=== PATIENT | female | born 1960 | race Caucasian/White ===

== ENCOUNTER 2017-02-05 17:23 | Emergency (ER) | payer MEDICARE, OTHER ==
[2017-02-05 17:43] VITALS: RESP 18
[2017-02-05] MEDS ORDERED: RX INFO: IV CONTRAST WAS GIVEN 1 EACH MISC MISCELLANE PRN (17:49)
[2017-02-05] MEDS ORDERED: ONDANSETRON 4 MG/2 ML VIAL IVP STA (17:49)
[2017-02-05] MEDS ORDERED: SODIUM CHLORIDE 0.9% 1,000 ML IV STA (17:49)
[2017-02-05] MEDS ORDERED: HYDROmorphone 1 MG/ML 1 ML SYRINGE IVP STA (17:49)
--- NOTE | 2017-02-05 18:06 | ED ---
General Adult HPI - General Chief complaint: Back Pain/Injury Stated complaint: Back Pain-no injury Time Seen by Provider: 02/05/17 17:26 Source: patient, EMS, RN notes reviewed Mode of arrival: EMS Limitations: no limitations - History of Present Illness Initial comments: 56-year-old female presents emergency room chief complaint of right-sided kidney pain. Patient states it started about 4 days ago and it just keeps getting worse. Patient states in the right side of his kidney. Patient states that he has no nausea vomiting. Patient states he started his [place] and Xanax at home. She states it better. She denies any changes in urination. She denies any trauma or injury. Patient states pain is constant and moderate just continues.Patient denies any recent fever, chills, shortness of breath, chest pain, nausea vomiting, numbness or tingling, dysuria or hematuria, constipation or diarrhea, headaches or visual changes, or any other current symptoms. - Related Data Home Medications Medication Instructions Recorded Confirmed Hydrocodone/Acetaminophen [[place] 1 tab PO 5XD PRN 01/13/14 02/05/17 10-325] ALPRAZolam [Xanax] 2 mg PO QID 02/05/17 02/05/17 Allergies Allergy/AdvReac Type Severity Reaction Status Date / Time morphine AdvReac Hallucinati Verified 02/05/17 18:23 ons Review of Systems ROS Statement: Those systems with pertinent positive or pertinent negative responses have been documented in the HPI. ROS Other: All systems not noted in ROS Statement are negative. Past Medical History Past Medical History: CVA/TIA Additional Past Medical History / Comment(s): blind left eye History of Any Multi-Drug Resistant Organisms: MRSA Date of last positivie culture/infection: 2017 MDRO Source:: skin Additional Past Surgical History / Comment(s): facial reconstructive, Past Psychological History: Anxiety, Depression Smoking Status: Current every day smoker Past Alcohol Use History: Occasional Past Drug Use History: Marijuana General Exam - General Exam Comments Initial Comments: General: The patient is awake and alert, in no distress, and does not appear acutely ill. Eye: Pupils are equal, round and reactive to light, extra-ocular movements are intact; there is normal conjunctiva bilaterally. No signs of icterus. Ears, nose, mouth and throat: There are moist mucous membranes and no oral lesions. Neck: The neck is supple, there is no tenderness. Cardiovascular: There is a regular rate and rhythm. No murmur, rub or gallop is appreciated. Respiratory: Lungs are clear to auscultation, respirations are non-labored, breath sounds are equal. No wheezes, stridor, rales, or rhonchi. Gastrointestinal: Soft, non-distended, non-tender abdomen without masses or organomegaly noted. There is no rebound or guarding present. Right sided CVA tenderness. Bowel sounds are unremarkable. Back: There is no tenderness to palpation in the midline. There is no obvious deformity. No rashes noted. Musculoskeletal: Normal ROM, no tenderness, There is no pedal edema. There is no calf tenderness or swelling. Sensation intact. Pulses equal bilaterally 2+. Neurological: CN II-XII intact, There are no obvious motor or sensory deficits. Coordination appears grossly intact. Speech is normal. Skin: Skin is warm and dry and no rashes or lesions are noted. Psychiatric: Cooperative, appropriate mood & affect, normal judgment. Limitations: no limitations Course Vital Signs 02/05/17 17:29 Temperature 98.8 F Pulse Rate 78 Respiratory 18 Rate Blood Pressure 135/80 O2 Sat by Pulse 97 Oximetry Medical Decision Making - Medical Decision Making 56-year-old female presents for right-sided flank pain. At this time patient's CAT scan and laboratory is been reviewed. She'll have elevated liver enzymes that we did discuss as well as some simple cyst on which we did discuss follow- up with GI and she is given their information. Discussed return parameters all the questions. She stated that she understood. She is resting completely room. At this time she'll be discharged home. - Lab Data Result diagrams: 02/05/17 18:05 02/05/17 18:05 Lab Results 02/05/17 02/05/17 02/05/17 Range/Units 18:05 18:05 18:05 WBC 9.8 (3.8-10.6) k/uL RBC 4.86 (3.80-5.40) m/uL Hgb 14.4 (11.4-16.0) gm/dL Hct 43.4 (34.0-46.0) % MCV 89.4 (80.0-100.0) fL MCH 29.6 (25.0-35.0) pg MCHC 33.1 (31.0-37.0) g/dL RDW 14.4 (11.5-15.5) % Plt Count 285 (150-450) k/uL Neutrophils % 65 % Lymphocytes % 29 % Monocytes % 4 % Eosinophils % 1 % Basophils % 1 % Neutrophils # 6.3 (1.3-7.7) k/uL Lymphocytes # 2.8 (1.0-4.8) k/uL Monocytes # 0.3 (0-1.0) k/uL Eosinophils # 0.1 (0-0.7) k/uL Basophils # 0.1 (0-0.2) k/uL Sodium 139 (137-145) mmol/L Potassium 3.8 (3.5-5.1) mmol/L Chloride 103 (98-107) mmol/L Carbon Dioxide 26 (22-30) mmol/L Anion Gap 10 mmol/L BUN 9 (7-17) mg/dL Creatinine 0.61 (0.52-1.04) mg/dL Est GFR (MDRD) Af Amer >60 (>60 ml/min/1.73 sqM) Est GFR (MDRD) Non-Af >60 (>60 ml/min/1.73 sqM) Glucose 103 H (74-99) mg/dL Calcium 9.6 (8.4-10.2) mg/dL Total Bilirubin 0.4 (0.2-1.3) mg/dL AST 278 H (14-36) U/L ALT 221 H (9-52) U/L Alkaline Phosphatase 53 (38-126) U/L Total Protein 7.8 (6.3-8.2) g/dL Albumin 4.2 (3.5-5.0) g/dL Amylase 45 (30-110) U/L Lipase 42 (23-300) U/L Urine Color Colorless Urine Appearance Clear (Clear) Urine pH 6.0 (5.0-8.0) Ur Specific [place] 1.001 (1.001-1.035) Urine Protein Negative (Negative) Urine Glucose (UA) Negative (Negative) Urine Ketones Negative (Negative) Urine Blood Negative (Negative) Urine Nitrite Negative (Negative) Urine Bilirubin Negative (Negative) Urine Urobilinogen <2.0 (<2.0) mg/dL Ur Leukocyte Esterase Negative (Negative) - Radiology Data Radiology results: report reviewed, image reviewed Disposition Clinical Impression: Right flank pain Disposition: HOME SELF-CARE Condition: Serious Instructions: Acute Low Back Pain (ED) Additional Instructions: Please use medication as discussed. Please follow up with family doctor if symptoms have not improved over the next two days. Please return to the emergency room if your symptoms increase or worsen or for any other concerns. Referrals: Dedrick Fernández MD [Primary Care Provider] - 1-2 days Time of Disposition: 19:33
[2017-02-05 18:25] LABS: Appearance,Urine Clear (Clear); Bilirubin,Urine Negative (Negative); Glucose,Urine (UA) Negative (Negative); Ketones,Urine Negative (Negative); Leukocyte Esterase,Urine Negative (Negative); Nitrite,Urine Negative (Negative); Protein,Urine Negative (Negative); Specific Gravity,Urine 1.001 (1.001-1.035); UA Billing (MACRO vs. MICRO) CHEM; Urobilinogen,Urine <2.0 mg/dL (<2.0)
[2017-02-05 18:35] LABS: Basophils # (A) 0.1 k/uL (0-0.2); Basophils % (A) 1 %; CH 30.2; Eosinophils # (A) 0.1 k/uL (0-0.7); Eosinophils % (A) 1 %; HCT 43.4 % (34.0-46.0); HDW 2.72; HGB 14.4 gm/dL (11.4-16.0); Luc # (Auto) 0.14; Luc % (Auto) 1; Lymphocytes # (A) 2.8 k/uL (1.0-4.8); Lymphocytes % (A) 29 %; MCH 29.6 pg (25.0-35.0); MCHC 33.1 g/dL (31.0-37.0); MCV 89.4 fL (80.0-100.0); Mean Platelet Volume 7.4; Monocytes # (A) 0.3 k/uL (0-1.0); Monocytes % (A) 4 %; Neutrophils # (A) 6.3 k/uL (1.3-7.7); Neutrophils % (A) 65 %; RBC 4.86 m/uL (3.80-5.40); RDW 14.4 % (11.5-15.5); WBC 9.8 k/uL (3.8-10.6); WBC (Perox) 9.65
[2017-02-05 18:36] LABS: ALT 221 U/L (9-52); AST 278 U/L (14-36); Alkaline Phosphatase 53 U/L (38-126); Amylase 45 U/L (30-110); Anion Gap 10 mmol/L; Blood Urea Nitrogen 9 mg/dL (7-17); Calcium 9.6 mg/dL (8.4-10.2); Carbon Dioxide 26 mmol/L (22-30); Chloride 103 mmol/L (98-107); Glucose 103 mg/dL (74-99); Non-African American GFR(MDRD) >60 (>60 ml/min/1.73 sqM); Potassium 3.8 mmol/L (3.5-5.1); Sodium 139 mmol/L (137-145); Total Bilirubin 0.4 mg/dL (0.2-1.3); Total Protein 7.8 g/dL (6.3-8.2)
--- NOTE | 2017-02-05 19:24 | CT ---
EXAMINATION TYPE: CT abdomen pelvis w con DATE OF EXAM: 02/05/2017 COMPARISON: NONE HISTORY: Right flank pain, no known injury. CT DLP: 1674.30 mGycm Automated exposure control for dose reduction was used. TECHNIQUE: Helical acquisition of images was performed from the lung bases through the pelvis. CONTRAST: Performed without Oral Contrast and with IV Contrast, patient injected with 100 mL of Omnipaque 300. FINDINGS: Lung bases are clear of consolidation. There is no pleural effusion. There are multiple rounded fluid densities in the liver that measure up to 1.5 cm consistent with simple cysts. Bile ducts are not di lated. Spleen and pancreas appear normal. Gallbladder appears normal. There is no adrenal mass. Kidneys show satisfactory contrast opacification. There is no hydronephrosi s. Ureters are not dilated. There is no retroperitoneal adenopathy. There is no ascites. Bladder distends smoothly. There is no sign of a pelvic mass. I see no intestina l wall thickening. There are no dilated loops. Appendix appears normal. I see no bony destructive pro cess. There is mild spurring in the lumbar spine. IMPRESSION: MULTIPLE SMALL HEPATIC CYSTS. NO DILATED DUCTS. NO SIGN OF ACUTE ABDOMEN AND PELVIS. NO EVIDENCE OF R ENAL STONE OR OBSTRUCTION.
[2017-02-05] MEDS ORDERED: KETOROLAC 30 MG/ML 1 ML VIAL IVP STA (19:33)
[2017-02-05 19:39] VITALS: BP 139/70; PULSE 61; TEMP 97.9
== END 2017-02-05 19:46 | disposition home or self-care (01) ==
LOC: EC 17:23
DX: R10.9 Unspecified abdominal pain (principal); R79.89 Other specified abnormal findings of blood chemistry; F32.9 Major depressive disorder, single episode, unspecified; F41.9 Anxiety disorder, unspecified; Z86.14 Personal history of Methicillin resistant Staphylococcus aureus infection; F17.200 Nicotine dependence, unspecified, uncomplicated; Z79.899 Other long term (current) drug therapy; Z88.5 Allergy status to narcotic agent
CPT/HCPCS: 99284 ×2; 96374 ×2; 96375 ×3; 96361 ×3; 36415; 80053; 82150; 83690; 85025; 81003; 87040; 87086; 74177; J2405; J1885; J1170; Q9967

== ENCOUNTER → 2017-03-31 | Outpatient (CLI) | payer OTHER ==
[2017-03-31 15:06] LABS: CH 28.8; CHCM 31.5; HCT 44.3 % (34.0-46.0); HDW 2.52; HGB 13.9 gm/dL (11.4-16.0); MCH 28.8 pg (25.0-35.0); MCHC 31.4 g/dL (31.0-37.0); MCV 91.7 fL (80.0-100.0); Mean Platelet Volume 7.3; RBC 4.83 m/uL (3.80-5.40); RDW 14.5 % (11.5-15.5); WBC 9.5 k/uL (3.8-10.6)
[2017-03-31 15:55] LABS: Bilirubin, Delta 0.4 mg/dL (0.0-0.2); Total Bilirubin 0.5 mg/dL (0.2-1.3); Total Protein 7.7 g/dL (6.3-8.2)
[2017-04-05 15:40] LABS: HCV Qualitative Result DETECTED (Not detected)
== END | disposition home or self-care (01) ==
LOC: LABWHC1 14:02
PROVIDERS: ATTEND Physician Assistant
DX: B18.2 Chronic viral hepatitis C (principal)
CPT/HCPCS: 36415; 80076; 82105; 85027; 87522; 87902

== ENCOUNTER → 2017-04-08 | Outpatient (CLI) | payer OTHER ==
--- NOTE | 2017-04-08 14:22 | CT ---
EXAMINATION TYPE: CT cervical spine wo con DATE OF EXAM: 04/08/2017 COMPARISON: CT cervical spine March 01, 2014 HISTORY: Neck pain CT DLP: 572.8 mGycm. Automated Exposure Control for Dose Reduction was Utilized. TECHNIQUE: CT scan of the cervical spine is obtained without contrast, axial images are obtained, sa gittal and coronal reformatted images are also reviewed. FINDINGS: Cervical spine is visualized in its entirety from C1 through upper thoracic levels, demonst rates straightened alignment without evidence of acute fracture or dislocation. Prevertebral soft ti ssue appears within normal limits. The C1-C2 articulation is within normal limits on the coronal jann ges. Vertebral body heights and disc space heights are maintained. Spinal canal is grossly preserved. Ther e are some uncovertebral facet degenerative changes mid cervical spine seen best axial images. Lung a pices are clear. Thyroid gland is felt within normal limits. Similar prior study there is degradation related to patient's large body habitus. IMPRESSION: Straightening of cervical spine with multilevel degenerative change not significantly gianna nged from prior study.
--- NOTE | 2017-04-08 15:18 | CT ---
EXAMINATION TYPE: CT lumbar spine wo con DATE OF EXAM: 04/08/2017 COMPARISON: CT abdomen and pelvis February 05, 2017 HISTORY: Low back pain CT DLP: 1843.7 mGycm Automated exposure control for dose reduction was used. FINDINGS: There are 5 lumbar-type vertebra identified. Lumbar spine show straightening alignment without eviden ce of acute fracture or dislocation. Vertebral body heights and disc space heights are fairly well-ma intained. No large posterior disc herniations are seen on sagittal images. There is mild multilevel a nterior and lateral spurring. Review of axial images at T11-T12 level shows calcified ligamentum flav um hypertrophy effacing posterior lateral thecal sac and axial image 6. Axial images at T12-L1 and L1-L2 are felt within normal limits. Axial images at L2-L3 level show mild broad disc bulge and mild facet degenerative changes bilaterall y. There is some effacement of the the anterior and posterior lateral thecal sac. Bilateral neural fo ramina are patent. Axial images at L3-L4 level show moderate facet degenerative changes bilaterally. There is mild broad disc bulge mildly effacing anterior thecal sac. Bilateral neural foramina remain patent. Axial images at L4-L5 level show broad-based posterior disc protrusion and mild/moderate facet degene rative changes bilaterally. Spinal canal is grossly preserved. Bilateral neural foramina are patent. Axial images at L5-S1 level show moderate to severe right and mild to moderate left-sided facet degen erative change. Spinal canal is preserved. Bilateral neural foramina are patent. Subcentimeter low dense lesion left hepatic lobe is stable from prior, too small to further character ize but most likely benign. Cannot entirely exclude small pancreatic tail 1.4 cm mass versus prominen t tissue axial image 26, advise pancreatic protocol multi phase CT or MRI follow-up in 3 months time to further assess. IMPRESSION: MULTILEVEL DEGENERATIVE CHANGES IN LUMBAR SPINE DETAILED ABOVE, ATTENTION TO DISTAL PANCREATIC HERNANDEZ L NOTED ABOVE.
== END | disposition home or self-care (01) ==
LOC: RADCTMAIN 13:33
PROVIDERS: ATTEND Psychiatry & Neurology Neurology
DX: M47.812 Spondylosis without myelopathy or radiculopathy, cervical region (principal); M47.816 Spondylosis without myelopathy or radiculopathy, lumbar region; Z88.5 Allergy status to narcotic agent
CPT/HCPCS: 72125; 72131

== ENCOUNTER 2017-06-20 11:38 | Emergency (ER) | payer OTHER ==
--- NOTE | 2017-06-20 11:54 | ED ---
General Adult HPI - General Chief complaint: Recheck/Abnormal Lab/Rx Stated complaint: Hypertension Time Seen by Provider: 06/20/17 11:44 Source: patient, RN notes reviewed Mode of arrival: ambulatory Limitations: no limitations - History of Present Illness Initial comments: Patient is a pleasant 57-year-old female presenting to the emergency department because she thinks she may have had a stroke. Patient states she went off her [place] and Xanax one week ago. Patient states she was somewhat delusional for a couple of days. Patient has been symptom-free for the past few days. Patient talked her doctor last night who recommended she come to the emergency department to get checked out. Patient denies any local area of weakness. No confusion. No speech deficits. No chest pain. Patient request [place] and Xanax. - Related Data Home Medications Medication Instructions Recorded Confirmed Hydrocodone/Acetaminophen [[place] 1 tab PO 5XD PRN 01/13/14 02/05/17 10-325] ALPRAZolam [Xanax] 2 mg PO QID 02/05/17 02/05/17 Allergies Allergy/AdvReac Type Severity Reaction Status Date / Time morphine AdvReac Hallucinati Verified 06/20/17 11:46 ons Review of Systems ROS Statement: Those systems with pertinent positive or pertinent negative responses have been documented in the HPI. ROS Other: All systems not noted in ROS Statement are negative. Constitutional: Denies: fever Eyes: Reports: vision change (Chronic left vision loss). Denies: eye pain ENT: Denies: ear pain Respiratory: Denies: cough Cardiovascular: Denies: chest pain Endocrine: Denies: fatigue Gastrointestinal: Denies: abdominal pain Genitourinary: Denies: dysuria Musculoskeletal: Denies: back pain Skin: Denies: rash Neurological: Denies: weakness 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 Date of last positivie culture/infection: 2016 MDRO Source:: skin Additional Past Surgical History / Comment(s): facial reconstructive, Past Psychological History: Anxiety, Depression Smoking Status: Former smoker Past Alcohol Use History: Occasional Past Drug Use History: Marijuana General Exam Limitations: no limitations General appearance: alert, in no apparent distress Head exam: Present: atraumatic Eye exam: Present: other (Left eye opacification) ENT exam: Present: normal oropharynx Neck exam: Present: normal inspection Respiratory exam: Present: normal lung sounds bilaterally Cardiovascular Exam: Present: regular rate, normal rhythm GI/Abdominal exam: Present: soft. Absent: tenderness Extremities exam: Present: normal inspection Neurological exam: Present: alert, oriented X3, CN II-XII intact. Absent: motor sensory deficit Expanded Patient oriented to: Present: person, place, time Speech: Present: fluid speech Cranial nerves: Facial Sensation: Normal Sensory exam: Upper Extremity Light Touch: Normal, Lower Extremity Light Touch: Normal Motor strength exam: RUE: 5, LUE: 5, RLE: 5, LLE: 5 Eye Response: (4) open spontaneously Motor Response: (6) obeys commands Verbal Response: (5) oriented Psychiatric exam: Present: normal affect, normal mood Skin exam: Present: other (Healed facial scars) Course Vital Signs 06/20/17 11:41 Temperature 97.8 F Pulse Rate 82 Respiratory 20 Rate Blood Pressure 162/99 O2 Sat by Pulse 99 Oximetry Medical Decision Making - Medical Decision Making report reviewed. Long discussion had with patient regarding her medication use. Patient is receptive to a single dose of Xanax at this time and will follow-up with her doctor Wednesday as scheduled. - Lab Data Result diagrams: 06/20/17 12:15 06/20/17 12:15 Lab Results 06/20/17 06/20/17 06/20/17 Range/Units 12:15 12:15 12:15 WBC 10.5 (3.8-10.6) k/uL RBC 5.08 (3.80-5.40) m/uL Hgb 14.6 (11.4-16.0) gm/dL Hct 45.6 (34.0-46.0) % MCV 89.6 (80.0-100.0) fL MCH 28.7 (25.0-35.0) pg MCHC 32.0 (31.0-37.0) g/dL RDW 13.0 (11.5-15.5) % Plt Count 312 (150-450) k/uL Neutrophils % 72 % Lymphocytes % 22 % Monocytes % 4 % Eosinophils % 1 % Basophils % 0 % Neutrophils # 7.6 (1.3-7.7) k/uL Lymphocytes # 2.3 (1.0-4.8) k/uL Monocytes # 0.4 (0-1.0) k/uL Eosinophils # 0.1 (0-0.7) k/uL Basophils # 0.0 (0-0.2) k/uL PT 9.6 (9.0-12.0) sec INR 1.0 (<1.2) APTT 21.4 L (22.0-30.0) sec Sodium 145 (137-145) mmol/L Potassium 3.6 (3.5-5.1) mmol/L Chloride 105 (98-107) mmol/L Carbon Dioxide 29 (22-30) mmol/L Anion Gap 11 mmol/L BUN 9 (7-17) mg/dL Creatinine 0.70 (0.52-1.04) mg/dL Est GFR (MDRD) Af Amer >60 (>60 ml/min/1.73 sqM) Est GFR (MDRD) Non-Af >60 (>60 ml/min/1.73 sqM) Glucose 111 H (74-99) mg/dL Calcium 9.9 (8.4-10.2) mg/dL Total Bilirubin 0.3 (0.2-1.3) mg/dL AST 30 (14-36) U/L ALT 37 (9-52) U/L Alkaline Phosphatase 68 (38-126) U/L Total Protein 8.4 H (6.3-8.2) g/dL Albumin 4.7 (3.5-5.0) g/dL Disposition Clinical Impression: Withdrawal complaint Disposition: HOME SELF-CARE Condition: Stable Instructions: Opioid Withdrawal (ED) Additional Instructions: Please follow-up with your doctor Wednesday as scheduled. If any problems call your doctor tomorrow. Return for change in mental status, weakness, fevers, seizures, worsening symptoms or other concerns. Referrals: Dedrick Fernández MD [Primary Care Provider] - 1-2 days Time of Disposition: 13:10
[2017-06-20 12:35] LABS: Basophils % (A) 0 %; Eosinophils # (A) 0.1 k/uL (0-0.7); Eosinophils % (A) 1 %; HCT 45.6 % (34.0-46.0); HGB 14.6 gm/dL (11.4-16.0); Lymphocytes # (A) 2.3 k/uL (1.0-4.8); Lymphocytes % (A) 22 %; MCH 28.7 pg (25.0-35.0); MCV 89.6 fL (80.0-100.0); Mean Platelet Volume 7.1; Monocytes # (A) 0.4 k/uL (0-1.0); Monocytes % (A) 4 %; Neutrophils # (A) 7.6 k/uL (1.3-7.7); Neutrophils % (A) 72 %; Platelet Count 312 k/uL (150-450); RBC 5.08 m/uL (3.80-5.40); WBC 10.5 k/uL (3.8-10.6)
[2017-06-20 12:44] LABS: Prothrombin Time 9.6 sec (9.0-12.0)
[2017-06-20 12:50] LABS: ALT 37 U/L (9-52); AST 30 U/L (14-36); Albumin 4.7 g/dL (3.5-5.0); Alkaline Phosphatase 68 U/L (38-126); Anion Gap 11 mmol/L; Blood Urea Nitrogen 9 mg/dL (7-17); Calcium 9.9 mg/dL (8.4-10.2); Carbon Dioxide 29 mmol/L (22-30); Chloride 105 mmol/L (98-107); Glucose 111 mg/dL (74-99); Partial Thromboplastin Time 21.4 sec (22.0-30.0); Potassium 3.6 mmol/L (3.5-5.1); Sodium 145 mmol/L (137-145); Total Bilirubin 0.3 mg/dL (0.2-1.3); Total Protein 8.4 g/dL (6.3-8.2)
--- NOTE | 2017-06-20 12:56 | CT ---
EXAMINATION TYPE: CT brain wo con DATE OF EXAM: 06/20/2017 COMPARISON: Previous study dated 03/01/2014. HISTORY: Patient complains of episodes of hallucinations. CT DLP: 1079 mGycm Automated exposure control for dose reduction was used. FINDINGS: Central structures are midline. There is no evidence of hydrocephalus. No acute focal lesion, mass ef fect or midline shift is seen. I do not see evidence of intracranial blood. Visualized portions of the paranasal sinuses and mastoids are clear. There is a stable, 6.4 mm exosto sis seen arising from the left frontal region. IMPRESSION: NO ACUTE INTRACRANIAL ABNORMALITY.
[2017-06-20] MEDS ORDERED: ALPRAZolam 0.5 MG TAB PO STA (13:09)
[2017-06-20 13:28] VITALS: BP 142/81; PULSE 66; RESP 16; TEMP 98.5
== END 2017-06-20 13:35 | disposition home or self-care (01) ==
LOC: EC 11:38
DX: F19.939 Other psychoactive substance use, unspecified with withdrawal, unspecified (principal); H54.62 Unqualified visual loss, left eye, normal vision right eye; F32.9 Major depressive disorder, single episode, unspecified; F41.9 Anxiety disorder, unspecified; Z87.891 Personal history of nicotine dependence; Z79.899 Other long term (current) drug therapy; Z88.5 Allergy status to narcotic agent; Z86.14 Personal history of Methicillin resistant Staphylococcus aureus infection; Z98.890 Other specified postprocedural states
CPT/HCPCS: 36415; 70450; 80053; 85025; 85610; 85730; 99284

== ENCOUNTER → 2017-08-17 | Outpatient (CLI) | payer OTHER ==
--- NOTE | 2017-08-17 08:33 | US ---
EXAMINATION TYPE: US liver DATE OF EXAM: 08/17/2017 COMPARISON: NONE CLINICAL HISTORY: 57-year-old female B18.2 chronic viral hep c. Technique: Multiple sonographic images of the right upper quadrant are obtained. FINDINGS: Liver Length: 16.0cm Gallbladder Wall: 0.3m CBD: 0.3cm Right Kidney: 11.5 x 4.3 x 3.7cm Pancreas: Tail obscured by overlying bowel gas Liver: multiple cysts noted measuring up to 1 cm on the left and 1.3 cm on the right. Gallbladder: Some comet tail artifacts along the anterior gallbladder wall compatible with adenomyoma tosis. No abnormal gallbladder distention, wall thickening, pericholecystic fluid, or shadowing calcu li. Evidence for sonographic Laboy's sign: no CBD: wnl Right Kidney: No hydronephrosis. IMPRESSION: Hepatic cysts measuring up to 1.3 cm. No suspicious liver lesion by ultrasound.
== END | disposition home or self-care (01) ==
LOC: RADUSWWP 06:56
PROVIDERS: ATTEND Family Medicine
DX: K76.89 Other specified diseases of liver (principal)
CPT/HCPCS: 76705

== ENCOUNTER → 2017-12-14 | Outpatient (CLI) | payer OTHER, MEDICARE ==
[2017-12-14 08:30] LABS: HCT 44.2 % (34.0-46.0); HGB 14.4 gm/dL (11.4-16.0); MCH 28.4 pg (25.0-35.0); MCHC 32.7 g/dL (31.0-37.0); MCV 86.9 fL (80.0-100.0); Mean Platelet Volume 6.9; Platelet Count 280 k/uL (150-450); RBC 5.09 m/uL (3.80-5.40); RDW 13.6 % (11.5-15.5); WBC 9.7 k/uL (3.8-10.6)
[2017-12-14 08:33] LABS: Albumin 4.1 g/dL (3.5-5.0); Bilirubin, Delta 0.3 mg/dL (0.0-0.2); Total Bilirubin 0.3 mg/dL (0.2-1.3); Total Protein 7.1 g/dL (6.3-8.2)
[2017-12-15 14:42] LABS: Hepatits C Virus RNA DETECTED (Not detected); Hepatits C Virus RNA, Quant 12 IU/mL (<12); LOG HCV IU/mL 1.08 (<1.08)
== END | disposition home or self-care (01) ==
LOC: LABWHC1 07:49
PROVIDERS: ATTEND Physician Assistant
DX: B18.2 Chronic viral hepatitis C (principal)
CPT/HCPCS: 36415; 80076; 85027; 87522

== ENCOUNTER → 2018-02-02 | Outpatient (CLI) | payer MEDICARE, OTHER ==
[2018-02-02 14:25] LABS: HGB 14.8 gm/dL (11.4-16.0); MCH 28.6 pg (25.0-35.0); MCHC 32.3 g/dL (31.0-37.0); MCV 88.6 fL (80.0-100.0); Platelet Count 316 k/uL (150-450); RBC 5.19 m/uL (3.80-5.40); RDW 13.3 % (11.5-15.5); WBC 13.2 k/uL (3.8-10.6)
[2018-02-02 14:28] LABS: Albumin 4.6 g/dL (3.5-5.0); Bilirubin, Delta 0.3 mg/dL (0.0-0.2); Bilirubin,Unconjugated 0.1 mg/dL (0.0-1.1); Total Bilirubin 0.4 mg/dL (0.2-1.3); Total Protein 8.5 g/dL (6.3-8.2)
[2018-02-03 13:46] LABS: Hepatits C Virus RNA Not detected (Not detected); Hepatits C Virus RNA, Quant <12 IU/mL (<12); LOG HCV IU/mL <1.08 (<1.08)
== END | disposition home or self-care (01) ==
LOC: LABWHC1 12:49
PROVIDERS: ATTEND Physician Assistant
DX: B18.2 Chronic viral hepatitis C (principal)
CPT/HCPCS: 36415; 80076; 85027; 87522

== ENCOUNTER → 2018-10-27 | Outpatient (CLI) | payer MEDICARE, OTHER ==
[2018-10-27 08:15] LABS: Basophils # (A) 0.1 k/uL (0-0.2); Basophils % (A) 1 %; Eosinophils # (A) 0.2 k/uL (0-0.7); Eosinophils % (A) 1 %; HCT 45.8 % (34.0-46.0); Lymphocytes # (A) 3.3 k/uL (1.0-4.8); Lymphocytes % (A) 25 %; MCH 28.2 pg (25.0-35.0); MCHC 32.8 g/dL (31.0-37.0); MCV 86.1 fL (80.0-100.0); Mean Platelet Volume 7.2; Monocytes # (A) 0.4 k/uL (0-1.0); Monocytes % (A) 3 %; Neutrophils % (A) 68 %; Platelet Count 436 k/uL (150-450); RBC 5.32 m/uL (3.80-5.40); RDW 13.3 % (11.5-15.5); WBC 13.2 k/uL (3.8-10.6)
[2018-10-27 11:10] LABS: ALT 14 U/L (8-44); AST 17 U/L (13-35); African American GFR (CKD) 94.2 (60.0-200.0); Albumin/Globulin Ratio 1.36 (1.60-3.17); Alkaline Phosphatase 59 U/L (41-126); BUN/Creat Ratio 21.25 Ratio (12.00-20.00); Bilirubin, Conjugated <0.20 mg/dL (0.20-0.40); Calcium 10.3 mg/dL (8.7-10.3); Carbon Dioxide 30.8 mmol/L (21.6-31.8); Chloride 99 mmol/L (96-109); Cholesterol 194 mg/dL (0-200); Globulin 3.3 g/dL (1.6-3.3); Glucose 142 mg/dL (70-110); Potassium 3.6 mmol/L (3.5-5.5); Sodium 137 mmol/L (135-145); Total Bilirubin 0.2 mg/dL (0.3-1.2); Total Protein 7.8 g/dL (6.2-8.2)
[2018-10-29 13:04] LABS: LOG HCV IU/mL <1.08 (<1.08)
== END | disposition home or self-care (01) ==
LOC: LABWHC1 07:21
PROVIDERS: ATTEND Physician Assistant
DX: E55.9 Vitamin D deficiency, unspecified (principal); E78.5 Hyperlipidemia, unspecified; R53.83 Other fatigue; B18.2 Chronic viral hepatitis C; Z13.220 Encounter for screening for lipoid disorders
CPT/HCPCS: 36415; 80053; 80061; 82248; 82306; 84439; 84443; 85025; 87522

== ENCOUNTER → 2018-11-16 | Outpatient (CLI) | payer MEDICARE, OTHER ==
--- NOTE | 2018-11-16 11:03 | BD ---
EXAMINATION TYPE: Axial Bone Density DATE OF EXAM: 11/16/2018 COMPARISON: 2013 CLINICAL HISTORY: M 81.0 Height: 67 Weight: 222.0 FRAX RISK QUESTIONS: Alcohol (3 or more units per day): no Family History (Parent hip fracture): no Glucocorticoids (More than 3mos): no (Ex: prednisone, prednisolone, methylprednisolone, dexamethasone, and hydrocortisone). History of Fracture in Adulthood: yes Secondary Osteoporosis: 1. Type 1 Diabetes: yes 2. Hyperthyroidism: no 3. Menopause before 45: no 4. Malnutrition: no 5. Chronic liver disease: no Rheumatoid Arthritis: no Current Tobacco Use: yes RISK FACTORS HISTORY OF: Spine Fracture: t-spine, c-spine History of Wrist Fracture: right wrist Family History of Osteoporosis: yes Active: no Diet low in dairy products/other sources of calcium: no Postmenopausal woman: age 48 MEDICATIONS: pain meds Additional History: EXAM MEASUREMENTS: Bone mineral densitometry was performed using the [employer] System. Bone mineral density as measured about the Lumbar spine is: ----- L1-L4(G/cm2): 1.432 T Score Values are as follows: ----- L2: 1.6 ----- L3: 2.8 ----- L4: 2.3 ----- L1-L4: 2.1 Bone mineral density : baseline Bone mineral density about the R hip (g/cm2): 1.053 Bone mineral density about the L hip (g/cm2): 1.053 T Score values are as follows: -----R Neck: 0.1 -----L Neck: 0.1 -----R Total: 0.3 -----L Total: 0.5 Bone mineral density has: increased 3.0 % since study of: 01.30.2014 IMPRESSION: Normal (Values between +1 and -1 indicate normal bone mass). Consider repeating this study in 5 year s or sooner if there is some new clinical indication. NOTE: T-SCORE=SD OF THE YOUNG ADULT MEAN.
== END | disposition home or self-care (01) ==
LOC: RADBDWWP 08:36
PROVIDERS: ATTEND Family Medicine
DX: M81.0 Age-related osteoporosis without current pathological fracture (principal)
CPT/HCPCS: 77080

== ENCOUNTER 2018-12-19 06:56 | Observation (INO) | payer MEDICARE, OTHER ==
[2018-12-19] MEDS ORDERED: ASPIRIN 81 MG PO STA (07:05)
[2018-12-19 07:14] VITALS: RESP 18
--- NOTE | 2018-12-19 07:15 | ED ---
General Adult HPI - General Stated complaint: anxiety Time Seen by Provider: 12/19/18 07:00 Source: RN notes reviewed - History of Present Illness Initial comments: This a 58-year-old female presents emergency department with past medical history significant for anxiety. Patient states she woke up this morning at 3 AM quite anxious and she took Ativan did not help. Patient states she did feel somewhat short of breath and had a little tightness in her chest which she states she's had in the past with her anxiety. Patient denies any chest pain currently patient denies any tightness in her chest currently patient denies any difficulty breathing currently. Patient states she recently was diagnosed with diabetes and took metformin for a couple days but it made her feel sick so she stopped taking it. Patient states she is currently trying to switch physicians. Patient states currently she just feels anxious and has no other symptoms at this time. Patient does mention that she fell on her right hip recently and it continues to hurt and she did have an x-ray in her doctor's office but he never called with results. Patient states she can ambulate but it is painful to walk. Patient also states that she recently quit smoking less than a week ago and that could be contributing to her anxiety - Related Data Home Medications Medication Instructions Recorded Confirmed Chlorthalidone [Hygroton] 25 mg PO DAILY 12/19/18 12/19/18 Ergocalciferol (Vitamin D2) 50,000 unit PO Q7D 12/19/18 12/19/18 [Drisdol] Hydrocodone/Acetaminophen [[place] 1 tab PO TID PRN 12/19/18 12/19/18 7.5-325] LORazepam [Ativan] 2 mg PO TID PRN 12/19/18 12/19/18 cloNIDine HCL 0.3 mg PO DAILY 12/19/18 12/19/18 metFORMIN HCL [Glucophage] 500 mg PO DAILY 12/19/18 12/19/18 Allergies Allergy/AdvReac Type Severity Reaction Status Date / Time morphine AdvReac Hallucinati Verified 12/19/18 09:06 ons Review of Systems ROS Statement: Those systems with pertinent positive or pertinent negative responses have been documented in the HPI. ROS Other: All systems not noted in ROS Statement are negative. 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 Patient is nontoxic and well- hydrated and is in no acute distress. ENT: Neck is soft and supple. No significant lymphadenopathy is noted. Oropharynx is clear. Moist mucous membranes. Neck has full range of motion without eliciting any pain. There is no thyroid enlargement and no masses were felt. EYES: The sclera were anicteric and conjunctiva were pink and moist. Patient is blind in the left eye. Eyelids were unremarkable. PULMONARY: Unlabored respirations. Good breath sounds bilaterally. No audible rales rhonchi or wheezing was noted. CARDIOVASCULAR: There is a regular rate and rhythm without any murmurs gallops or rubs. ABDOMEN: Soft and nontender with normal bowel sounds. SKIN: Skin is clear with no lesions or rashes and otherwise unremarkable. NEUROLOGIC: Patient is alert and oriented x3. Cranial nerves II through XII are grossly intact. Motor and sensory are also intact. Normal speech, volume and content. Symmetrical smile. MUSCULOSKELETAL: Normal extremities with adequate strength and full range of motion. Patient has tenderness on the lateral aspect of the right hip. No lower extremity swelling or edema. No calf tenderness. LYMPHATICS: No significant lymphadenopathy is noted PSYCHIATRIC: Patient is anxious. Course Vital Signs 12/19/18 12/19/18 06:59 10:19 Temperature 97.6 F Pulse Rate 79 Respiratory 18 18 Rate Blood Pressure 139/84 130/86 O2 Sat by Pulse 100 Oximetry Medical Decision Making - Medical Decision Making EKG shows normal sinus rhythm at 64 bpm SD interval is 174 QRS 70 QT interval 396 QTC is 408. Patient's EKG shows no ST segment elevation or depression or T wave abnormalities are noted. Patient stated that her physician was Dr. Hernandez Chest x-ray shows no acute abnormality. Patient still has some chest pains on going to admit the patient at this time - Lab Data Result diagrams: 12/19/18 08:30 12/19/18 08:30 Lab Results 08/04/2712/19/18 12/19/18 Range/Units 08:30 08:30 08:30 WBC 9.9 (3.8-10.6) k/uL RBC 5.24 (3.80-5.40) m/uL Hgb 15.2 (11.4-16.0) gm/dL Hct 45.7 (34.0-46.0) % MCV 87.3 (80.0-100.0) fL MCH 29.0 (25.0-35.0) pg MCHC 33.2 (31.0-37.0) g/dL RDW 14.7 (11.5-15.5) % Plt Count 291 (150-450) k/uL Neutrophils % 62 % Lymphocytes % 31 % Monocytes % 5 % Eosinophils % 1 % Basophils % 1 % Neutrophils # 6.1 (1.3-7.7) k/uL Lymphocytes # 3.0 (1.0-4.8) k/uL Monocytes # 0.5 (0-1.0) k/uL Eosinophils # 0.1 (0-0.7) k/uL Basophils # 0.1 (0-0.2) k/uL PT (9.0-12.0) sec INR (<1.2) APTT (22.0-30.0) sec Sodium 141 (137-145) mmol/L Potassium 4.0 (3.5-5.1) mmol/L Chloride 105 (98-107) mmol/L Carbon Dioxide 25 (22-30) mmol/L Anion Gap 11 mmol/L BUN 16 (7-17) mg/dL Creatinine 0.70 (0.52-1.04) mg/dL Est GFR (CKD-EPI)AfAm >90 (>60 ml/min/1.73 sqM) Est GFR (CKD-EPI)NonAf >90 (>60 ml/min/1.73 sqM) Glucose 106 H (74-99) mg/dL Calcium 10.0 (8.4-10.2) mg/dL Magnesium 1.9 (1.6-2.3) mg/dL Total Bilirubin 0.3 (0.2-1.3) mg/dL AST 20 (14-36) U/L ALT 18 (9-52) U/L Alkaline Phosphatase 50 (38-126) U/L Troponin I <0.012 (0.000-0.034) ng/mL Total Protein 8.0 (6.3-8.2) g/dL Albumin 4.4 (3.5-5.0) g/dL 12/19/18 Range/Units 08:30 WBC (3.8-10.6) k/uL RBC (3.80-5.40) m/uL Hgb (11.4-16.0) gm/dL Hct (34.0-46.0) % MCV (80.0-100.0) fL MCH (25.0-35.0) pg MCHC (31.0-37.0) g/dL RDW (11.5-15.5) % Plt Count (150-450) k/uL Neutrophils % % Lymphocytes % % Monocytes % % Eosinophils % % Basophils % % Neutrophils # (1.3-7.7) k/uL Lymphocytes # (1.0-4.8) k/uL Monocytes # (0-1.0) k/uL Eosinophils # (0-0.7) k/uL Basophils # (0-0.2) k/uL PT 9.7 (9.0-12.0) sec INR 0.9 (<1.2) APTT 23.6 (22.0-30.0) sec Sodium (137-145) mmol/L Potassium (3.5-5.1) mmol/L Chloride (98-107) mmol/L Carbon Dioxide (22-30) mmol/L Anion Gap mmol/L BUN (7-17) mg/dL Creatinine (0.52-1.04) mg/dL Est GFR (CKD-EPI)AfAm (>60 ml/min/1.73 sqM) Est GFR (CKD-EPI)NonAf (>60 ml/min/1.73 sqM) Glucose (74-99) mg/dL Calcium (8.4-10.2) mg/dL Magnesium (1.6-2.3) mg/dL Total Bilirubin (0.2-1.3) mg/dL AST (14-36) U/L ALT (9-52) U/L Alkaline Phosphatase (38-126) U/L Troponin I (0.000-0.034) ng/mL Total Protein (6.3-8.2) g/dL Albumin (3.5-5.0) g/dL Disposition Clinical Impression: Chest pain Disposition: ADMITTED IP TO THIS HOSP Referrals: Freddy Hernandez MD [STAFF PHYSICIAN] - 1-2 days Time of Disposition: 10:40
[2018-12-19] MEDS ORDERED: LORazepam 2 MG/ML INJ IV STA (08:25)
[2018-12-19] MEDS ORDERED: HYDROcodone/APAP 5-325MG 1 EACH TAB PO STA (08:26)
[2018-12-19 08:49] LABS: INR 0.9 (<1.2); Partial Thromboplastin Time 23.6 sec (22.0-30.0); Prothrombin Time 9.7 sec (9.0-12.0)
[2018-12-19 08:52] LABS: Basophils # (A) 0.1 k/uL (0-0.2); Basophils % (A) 1 %; Eosinophils # (A) 0.1 k/uL (0-0.7); Eosinophils % (A) 1 %; HCT 45.7 % (34.0-46.0); HGB 15.2 gm/dL (11.4-16.0); Lymphocytes % (A) 31 %; MCHC 33.2 g/dL (31.0-37.0); MCV 87.3 fL (80.0-100.0); Mean Platelet Volume 7.9; Monocytes # (A) 0.5 k/uL (0-1.0); Monocytes % (A) 5 %; Neutrophils # (A) 6.1 k/uL (1.3-7.7); Neutrophils % (A) 62 %; Platelet Count 291 k/uL (150-450); RBC 5.24 m/uL (3.80-5.40); RDW 14.7 % (11.5-15.5); WBC 9.9 k/uL (3.8-10.6)
--- NOTE | 2018-12-19 08:56 | XR ---
EXAMINATION TYPE: XR chest 2V DATE OF EXAM: 12/19/2018 COMPARISON: 03/02/2014 HISTORY: Chest pain TECHNIQUE: Frontal and lateral views of the chest are obtained. FINDINGS: There is no focal air space opacity. No evidence for pneumothorax. No pleural effusion. The cardiac silhouette size is within normal limits. The osseous structures are grossly intact. IMPRESSION: 1. No acute cardiopulmonary process.
[2018-12-19 08:57] LABS: ALT 18 U/L (9-52); AST 20 U/L (14-36); African American GFR (CKD) >90 (>60 ml/min/1.73 sqM); Albumin 4.4 g/dL (3.5-5.0); Alkaline Phosphatase 50 U/L (38-126); Anion Gap 11 mmol/L; Blood Urea Nitrogen 16 mg/dL (7-17); Carbon Dioxide 25 mmol/L (22-30); Chloride 105 mmol/L (98-107); Glucose 106 mg/dL (74-99); Magnesium 1.9 mg/dL (1.6-2.3); Sodium 141 mmol/L (137-145); Total Bilirubin 0.3 mg/dL (0.2-1.3)
--- NOTE | 2018-12-19 08:57 | XR ---
EXAMINATION TYPE: XR Hip Complete RT DATE OF EXAM: 12/19/2018 CLINICAL HISTORY: pain TECHNIQUE: AP and frogleg views of the right hip are obtained. COMPARISON: None. FINDINGS: There is no acute fracture/dislocation evident. The joint space appears mildly narrowed. . The overlying soft tissue appears unremarkable. IMPRESSION: 1. There is no acute fracture or dislocation. ICD 10 NO FRACTURE, INITIAL EVALUATION
[2018-12-19] MEDS ORDERED: NITROGLYCERIN SL TABS 0.4 MG TAB SUBLINGUAL PRN (10:58)
[2018-12-19] MEDS ORDERED: KETOROLAC 30 MG/ML 1 ML VIAL IVP STA (11:16)
--- NOTE | 2018-12-19 11:33 | XR ---
EXAM TYPE: LUMBAR SPINE X RAY SERIES COMPARISON: NONE HISTORY: Pain TECHNIQUE: 4 views are submitted. FINDINGS: Alignment is anatomic. The pedicles are intact. The transverse processes are intact. There is no s pondylolysis or spondylolisthesis. Diffuse osteopenia. Hypertrophic and degenerative change of the v ertebral column. Multilevel facet arthropathy. IMPRESSION: 1. Multilevel degenerative disc disease and facet arthropathy..
[2018-12-19] MEDS ORDERED: NITROGLYCERIN OINT 1 INCH/GM PACKET TOPICAL SCH (12:00)
[2018-12-19 12:57] VITALS: BP 134/93; PULSE 68; TEMP 97.8
[2018-12-19] MEDS ORDERED: HYDROcodone/APAP 7.5-325MG 1 EACH TAB PO PRN (13:33)
[2018-12-19] MEDS ORDERED: LORazepam 1 MG TAB PO PRN (13:33)
--- NOTE | 2018-12-19 13:47 | P.CRDCN ---
History of Present Illness History of present illness: This is a pleasant 58-year-old female past medical history significant for hypertension, CVA, anxiety, depression and former nicotine dependence. She denies history of coronary artery disease and does not follow with a senior interactive producer for any reason. We've been asked to see her in consultation secondary to chest discomfort. She states she woke up around 3 in the morning with a heavy pressure sensation in the midsternal region. She states it felt like a small animal was sitting on her chest. This was associated with significant shortness of breath. There is no radiation to the arm, back, neck or jaw. She denies associated palpitations, diaphoresis, dizziness, nausea, v omiting. She states she suffers from severe anxiety and has recently undergone some medication adjustments per her primary care physician. She states she is also been told one week ago that she was new-onset diabetic causing her severe anxiety. She was started on metformin however this causes significant GI upset and she stopped. She states she is not quite clear if she actually is diabetic as she has not been given a glucometer and did not have a hemoglobin A1c drawn for the patient. She continues to have a heavy sensation in the midsternal region despite receiving Ativan and Toradol in the emergency department. EKG reveals sinus mechanism with no acute ST or T wave abnormalities noted. Chest x-ray is negative for an acute cardiopulmonary process. Laboratory data reviewed, cardiac enzymes negative 1, WBC 9.9, hemoglobin 15.2, platelets 291, sodium 141, potassium 4.0, creatinine 0.7, magnesium 1.9. Current cardiac medications include chlorthalidone 25 mg daily and clonidine 0.3 mg daily. Most recent stress test 2015 with a Lexiscan stress test was negative for reversible cardiac ischemia. Most recent echocardiogram in 2015 revealed preserved LV systolic function with ejection fraction 60-65%. At the time of my exam: CONSTITUTIONAL: Denies fever. Denies chills. EYES: Denies blurred vision. Denies vision changes. Denies eye pain. EARS, NOSE, MOUTH & THROAT: Denies headache. Denies sore throat. Denies ear pain. CARDIOVASCULAR: Complains of chest pain. Denies shortness of breath. Denies orthopnea. Denies PND. Denies palpitations. RESPIRATORY: Denies cough. GASTROINTESTINAL: Denies abdominal pain. Denies diarrhea. Denies constipation. Denies nausea. Denies vomiting. MUSCULOSKELETAL: Denies myalgias. INTEGUMENTARY: Denies pruitis. Denies rash. NEUROLOGIC: Denies numbness. Denies tingling. Denies weakness. PSYCHIATRIC: Denies anxiety. Denies depression. ENDOCRINE: Denies fatigue. Denies weight change. Denies polydipsia. Denies polyurina. GENITOURINARY: Denies burning, hematuria or urgency with micturation. HEMATOLOGIC: Denies history of anemia. Denies bleeding. Blood pressure 134/93 heart rate 68 afebrile maintaining oxygen saturation on room air GENERAL: This is a 58-year-old female in no apparent distress at the time of my examination. HEENT: Head is atraumatic, normocephalic. Pupils are reactive in the right eye. Sclerae anicteric. Conjunctivae are clear. Mucous membranes of the mouth are moist. Neck is supple. There is no jugular venous distention. No carotid bruit is heard. LUNGS: Clear to auscultation no wheezes, rales or rhonchi. No chest wall tenderness is noted on palpation or with deep breathing. HEART: Regular rate and rhythm without murmurs, rubs or gallops. S1 and S2 heard. ABDOMEN: Soft, nontender. Bowel sounds are heard. No organomegaly noted. EXTREMITIES: No evidence of peripheral edema and no calf tenderness noted. VASCULAR: Radial and dorsalis pedis pulses palpated, no evidence of clubbing. NEUROLOGIC: Patient is awake, alert and oriented x3. ASSESSMENT Chest pain, atypical. Hypertension Dyslipidemia Questionable diabetes mellitus Former nicotine dependence, the patient states she quit smoking one week ago when she was told she was diabetic Anxiety, PTSD and depression PLAN Obtain second troponin in 4 hours. At that time also repeat an EKG. Discontinue clonidine. Check d-dimer and hemoglobin A1c. If in fact she is diabetic we will initiate statin and losartan. Further recommendations to follow based upon clinical course. Thank you kindly for this consultation. Nurse Practitioner note has been reviewed, I agree with a documented findings and plan of care. Patient was seen and examined. 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 Date of last positivie culture/infection: 2016 MDRO Source:: skin Additional Past Surgical History / Comment(s): facial reconstructive, Past Psychological History: Anxiety, Depression Smoking Status: Former smoker Past Alcohol Use History: Occasional Past Drug Use History: Marijuana Medications and Allergies Home Medications Medication Instructions Recorded Confirmed Type Chlorthalidone [Hygroton] 25 mg PO DAILY 12/19/18 12/19/18 History Ergocalciferol (Vitamin D2) 50,000 unit PO Q7D 12/19/18 12/19/18 History [Drisdol] Hydrocodone/Acetaminophen [[place] 1 tab PO TID PRN 12/19/18 12/19/18 History 7.5-325] LORazepam [Ativan] 2 mg PO TID PRN 12/19/18 12/19/18 History cloNIDine HCL 0.3 mg PO DAILY 12/19/18 12/19/18 History metFORMIN HCL [Glucophage] 500 mg PO DAILY 12/19/18 12/19/18 History Allergies Allergy/AdvReac Type Severity Reaction Status Date / Time morphine AdvReac Hallucinati Verified 12/19/18 09:06 ons Physical Exam Vitals: Vital Signs Temp Pulse Pulse Resp BP BP Pulse Ox 12/19/18 12:54 97.8 F 68 18 134/93 99 12/19/18 12:37 98 12/19/18 11:44 89 18 139/78 99 12/19/18 10:19 18 130/86 12/19/18 06:59 97.6 F 79 18 139/84 100 Intake and Output 12/18/18 12/19/18 12/19/18 22:59 06:59 14:59 Other: Voiding Method Toilet # Voids 1 Weight 99.79 kg Results 12/19/18 08:30 12/19/18 08:30 Cardiac Enzymes 12/19/18 12/19/18 Range/Units 08:30 08:30 AST 20 (14-36) U/L Troponin I <0.012 (0.000-0.034) ng/mL Coagulation 12/19/18 Range/Units 08:30 PT 9.7 (9.0-12.0) sec APTT 23.6 (22.0-30.0) sec CBC 12/19/18 Range/Units 08:30 WBC 9.9 (3.8-10.6) k/uL RBC 5.24 (3.80-5.40) m/uL Hgb 15.2 (11.4-16.0) gm/dL Hct 45.7 (34.0-46.0) % Plt Count 291 (150-450) k/uL Comprehensive Metabolic Panel 12/19/18 Range/Units 08:30 Sodium 141 (137-145) mmol/L Potassium 4.0 (3.5-5.1) mmol/L Chloride 105 (98-107) mmol/L Carbon Dioxide 25 (22-30) mmol/L BUN 16 (7-17) mg/dL Creatinine 0.70 (0.52-1.04) mg/dL Glucose 106 H (74-99) mg/dL Calcium 10.0 (8.4-10.2) mg/dL AST 20 (14-36) U/L ALT 18 (9-52) U/L Alkaline Phosphatase 50 (38-126) U/L Total Protein 8.0 (6.3-8.2) g/dL Albumin 4.4 (3.5-5.0) g/dL Current Medications Generic Name Dose Route Start Last Admin Trade Name Freq PRN Reason Stop Dose Admin Hydrocodone Bitart/Acetaminophen 1 each 12/19/18 13:33 [place] 7.5-325 PO TID PRN Pain Chlorthalidone 25 mg 12/20/18 09:00 [place] PO DAILY SANDRO Lorazepam 2 mg 12/19/18 13:33 Ativan PO TID PRN Anxiety Nitroglycerin 1 inch 12/19/18 12:00 Nitro-Bid Oint TOPICAL Q6HR SANDRO Nitroglycerin 0.4 mg 12/19/18 10:58 Nitrostat SUBLINGUAL Q5M PRN Chest Pain Intake and Output 12/18/18 12/19/18 12/19/18 22:59 06:59 14:59 Other: Voiding Method Toilet # Voids 1 Weight 99.79 kg 12/19/18 08:30 12/19/18 08:30
[2018-12-20] MEDS ORDERED: cloNIDine HCL 0.1 MG TAB PO SCH (09:00)
[2018-12-20] MEDS ORDERED: ASPIRIN 81 MG PO SCH (09:00)
[2018-12-20] MEDS ORDERED: CHLORTHALIDONE 25 MG TAB PO SCH (09:00)
[2018-12-20] MEDS ORDERED: ASPIRIN 325 MG TAB PO SCH (09:00)
--- NOTE | 2018-12-20 18:56 | HP ---
HISTORY AND PHYSICAL DATE OF ADMISSION: 12/19/2018 CHIEF COMPLAINT: Chest pain. HISTORY OF PRESENT ILLNESS: This is another admission for this 58-year-old white female. She came to the emergency room with chest pain. She also had anxiety. She was admitted. REVIEW OF SYSTEMS: Not obtained. Past medical history, family history, and personal and social histories were obtained from medical records. She is not allergic to any medications. MEDICATIONS: She is on Catapres 0.3 once a day, vitamin D 98258 units a month, Ativan 2 mg t.i.d. p.r.n., chlorthalidone 25 mg once a day, Vicodin 7.5 once a day. Studies in the emergency room were unremarkable including her troponin. PHYSICAL EXAM: Physical exam was not done because she signed out before she was seen. She was admitted to the hospital with diagnoses: 1. Chest pain. 2. Anxiety. 3. Chronic obstructive pulmonary disease. 4. Hypertension. PLAN: Would have been bedrest, serial EKGs and enzymes and cardiology consult. MMODL / LOANN: [id number] /
--- NOTE | 2018-12-20 19:32 | DS ---
DISCHARGE SUMMARY CHIEF COMPLAINT: Chest pain, anxiety, COPD and hypertension. HISTORY OF PRESENT ILLNESS AND PHYSICAL EXAM: Details of this lady's history and physical can be found in the initial workup. LABORATORY STUDIES: While she was in the hospital, she had laboratory studies, details of which can be found in the laboratory section of her chart. COURSE IN HOSPITAL: After admission, she was placed on bedrest and had not been in the hospital very long when she signed herself out AGAINST MEDICAL ADVICE. FINAL DIAGNOSES: 1. Chest pain. 2. Hypertension. 3. Anxiety. 4. Chronic obstructive pulmonary disease. OPERATIONS: None. CONSULTATION: None. MMODL / IJN: [id number] /
== END 2018-12-19 13:32 | disposition left against medical advice (07) ==
LOC: EC 06:56 → SUPCPDRO 06:56 → 1SOBS 10:58
PROVIDERS: ADMIT Family Medicine; ATTEND Family Medicine
DX: R07.89 Other chest pain (principal); R06.02 Shortness of breath; I10 Essential (primary) hypertension; F41.9 Anxiety disorder, unspecified; M25.551 Pain in right hip; E78.5 Hyperlipidemia, unspecified; J44.9 Chronic obstructive pulmonary disease, unspecified; Z53.21 Procedure and treatment not carried out due to patient leaving prior to being seen by health care provider; F43.10 Post-traumatic stress disorder, unspecified; F32.9 Major depressive disorder, single episode, unspecified; H54.62 Unqualified visual loss, left eye, normal vision right eye; Z79.899 Other long term (current) drug therapy; Z79.891 Long term (current) use of opiate analgesic; Z87.891 Personal history of nicotine dependence; Z86.73 Personal history of transient ischemic attack (TIA), and cerebral infarction without residual deficits; Z86.14 Personal history of Methicillin resistant Staphylococcus aureus infection; Z88.5 Allergy status to narcotic agent
CPT/HCPCS: 96374; 96375; 99285; 36415; 93005; 80053; 83735; 84484; 85025; 85610; 85730; 72110; 73502; 71046; G0378; J2060; J1885

== ENCOUNTER 2019-12-20 18:32 | Observation (INO) | payer MEDICARE, OTHER ==
[2019-12-20] MEDS ORDERED: HYDROmorphone 1 MG/ML 1 ML SYRINGE IVP STA ×2 (19:19→20:46)
[2019-12-20] MEDS ORDERED: SODIUM CHLORIDE 0.9% 1,000 ML IV ONE (19:19)
[2019-12-20] MEDS ORDERED: ONDANSETRON 4 MG/2 ML VIAL IVP STA (19:19)
--- NOTE | 2019-12-20 19:43 | ED ---
General Adult HPI - General Chief complaint: Skin/Abscess/Foreign Body Stated complaint: abscess on buttocks Time Seen by Provider: 12/20/19 19:03 Source: EMS Mode of arrival: EMS Limitations: no limitations - History of Present Illness Initial comments: 59-year-old female patient presents to the emergency department today for evaluation of wound to her right buttock. Patient states that several days ago she developed an itchy bump to the area. States that she does sleep with her she thought was a flea bite. Patient states over the last 4-5 days the area has been increasing in size and pain. Patient denies any drainage from the area. Patient states that her pain is currently a 10 out of 10 on the pain scale and she is unable to stand any longer. Patient denies history of similar symptoms. Denies any history of diabetes. Patient denies any recent rash, cough, shortness of breath, chest pain, abdominal pain, nausea, vomiting, diarrhea, constipation, back pain, numbness, tingling, dizziness, weakness, hematuria, dysuria, urinary urgency, urinary frequency, headache, visual changes, or any other complaints. - Related Data Home Medications Medication Instructions Recorded Confirmed Chlorthalidone [[place]] 25 mg PO DAILY 12/19/18 12/20/19 ALPRAZolam [Xanax] 2 mg PO TID PRN 12/20/19 12/20/19 Aspirin [[place] Aspirin EC] 81 mg PO DAILY 12/20/19 12/20/19 Atenolol [Tenormin] 50 mg PO DAILY 12/20/19 12/20/19 HYDROcodone/APAP 10-325MG [[place] 1 tab PO TID 12/20/19 12/20/19 10-325] cloNIDine HCL [[place]] 0.2 mg PO HS 12/20/19 12/20/19 Allergies Allergy/AdvReac Type Severity Reaction Status Date / Time morphine AdvReac Hallucinati Verified 12/20/19 21:40 ons Review of Systems ROS Statement: Those systems with pertinent positive or pertinent negative responses have been documented in the HPI. ROS Other: All systems not noted in ROS Statement are negative. 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 Date of last positivie culture/infection: 2017 MDRO Source:: skin Additional Past Surgical History / Comment(s): facial reconstructive, Past Psychological History: Anxiety, Depression Smoking Status: Current some day smoker Past Alcohol Use History: None Reported Past Drug Use History: Marijuana - Past Family History Mother Family Medical History: No Reported History Father Family Medical History: Hypertension General Exam Limitations: no limitations General appearance: alert, in no apparent distress, other (This is a well- developed, well-nourished adult female patient in mild distress related to pain. Vital signs upon presentation are temperature 98.1F, pulse 97, respirations 16, blood pressure 141/103, pulse ox 98% on room air.) Eye exam: Present: normal appearance, PERRL, EOMI. Absent: scleral icterus, conjunctival injection, periorbital swelling ENT exam: Present: normal exam, normal oropharynx, mucous membranes moist Respiratory exam: Present: normal lung sounds bilaterally. Absent: respiratory distress, wheezes, rales, rhonchi, stridor Cardiovascular Exam: Present: regular rate, normal rhythm, normal heart sounds. Absent: systolic murmur, diastolic murmur, rubs, gallop, clicks GI/Abdominal exam: Present: soft, normal bowel sounds. Absent: distended, tenderness, guarding, rebound, rigid Neurological exam: Present: alert, oriented X3, CN II-XII intact Psychiatric exam: Present: normal affect, normal mood Skin exam: Present: warm, dry, intact, normal color. Absent: rash Expanded Type of lesion: Present: abscess (There is large abscess noted to the right upper buttock, there is large area of central necrosis. No drainage. Area is extremely tender to touch.) Course Vital Signs 12/20/19 12/20/19 18:35 20:59 Temperature 98.1 F 97.9 F Pulse Rate 97 72 Respiratory 16 16 Rate Blood Pressure 141/103 132/66 O2 Sat by Pulse 98 97 Oximetry Medical Decision Making - Medical Decision Making 59-year-old female patient presents to the emergency department today for evaluation of abscess to the right upper buttock. Physical examination reveals a large abscess to the right upper buttock with a central area of necrosis. Patient is afebrile. Labs reviewed and are unremarkable. Given the extent of the abscess we will admit to the hospital with IV antibiotics and incision and drainage by surgery. Infectious disease will be consulted. - Lab Data Result diagrams: 12/20/19 20:12 12/20/19 20:46 Lab Results 12/20/19 12/20/19 12/20/19 Range/Units 19:41 20:12 20:46 WBC 7.9 (3.8-10.6) k/uL RBC 4.76 (3.80-5.40) m/uL Hgb 14.0 (11.4-16.0) gm/dL Hct 42.3 (34.0-46.0) % MCV 89.0 (80.0-100.0) fL MCH 29.5 (25.0-35.0) pg MCHC 33.2 (31.0-37.0) g/dL RDW 12.6 (11.5-15.5) % Plt Count 315 (150-450) k/uL Neutrophils % 60 % Lymphocytes % 30 % Monocytes % 5 % Eosinophils % 2 % Basophils % 1 % Neutrophils # 4.8 (1.3-7.7) k/uL Lymphocytes # 2.4 (1.0-4.8) k/uL Monocytes # 0.4 (0-1.0) k/uL Eosinophils # 0.2 (0-0.7) k/uL Basophils # 0.0 (0-0.2) k/uL Sodium 141 (137-145) mmol/L Potassium 3.7 (3.5-5.1) mmol/L Chloride 106 (98-107) mmol/L Carbon Dioxide 30 (22-30) mmol/L Anion Gap 5 mmol/L BUN 9 (7-17) mg/dL Creatinine 0.58 (0.52-1.04) mg/dL Est GFR (CKD-EPI)AfAm >90 (>60 ml/min/1.73 sqM) Est GFR (CKD-EPI)NonAf >90 (>60 ml/min/1.73 sqM) Glucose 116 H (74-99) mg/dL Plasma Lactic Acid Reg 1.3 (0.7-2.0) mmol/L Calcium 8.9 (8.4-10.2) mg/dL Total Bilirubin 0.4 (0.2-1.3) mg/dL AST 20 (14-36) U/L ALT 11 (4-34) U/L Alkaline Phosphatase 51 (38-126) U/L Total Protein 6.8 (6.3-8.2) g/dL Albumin 3.9 (3.5-5.0) g/dL Disposition Clinical Impression: Abscess of buttock, right Disposition: ADMITTED IP TO THIS [facility] Condition: Serious Decision to Admit Reason: Admit from EC Decision Date: 12/20/19 Decision Time: 21:24
[2019-12-20] MEDS ORDERED: LORazepam 2 MG/ML INJ IV STA (19:55)
[2019-12-20 20:18] LABS: Basophils % (A) 1 %; Eosinophils # (A) 0.2 k/uL (0-0.7); Eosinophils % (A) 2 %; HCT 42.3 % (34.0-46.0); Lymphocytes # (A) 2.4 k/uL (1.0-4.8); Lymphocytes % (A) 30 %; MCH 29.5 pg (25.0-35.0); MCHC 33.2 g/dL (31.0-37.0); Mean Platelet Volume 7.6; Monocytes # (A) 0.4 k/uL (0-1.0); Monocytes % (A) 5 %; Neutrophils # (A) 4.8 k/uL (1.3-7.7); Neutrophils % (A) 60 %; Platelet Count 315 k/uL (150-450); RBC 4.76 m/uL (3.80-5.40); RDW 12.6 % (11.5-15.5); WBC 7.9 k/uL (3.8-10.6)
[2019-12-20 21:18] LABS: ALT 11 U/L (4-34); AST 20 U/L (14-36); African American GFR (CKD) >90 (>60 ml/min/1.73 sqM); Albumin 3.9 g/dL (3.5-5.0); Alkaline Phosphatase 51 U/L (38-126); Anion Gap 5 mmol/L; Blood Urea Nitrogen 9 mg/dL (7-17); Calcium 8.9 mg/dL (8.4-10.2); Carbon Dioxide 30 mmol/L (22-30); Chloride 106 mmol/L (98-107); Glucose 116 mg/dL (74-99); Non-African American GFR(CKD) >90 (>60 ml/min/1.73 sqM); Potassium 3.7 mmol/L (3.5-5.1); Sodium 141 mmol/L (137-145); Total Bilirubin 0.4 mg/dL (0.2-1.3); Total Protein 6.8 g/dL (6.3-8.2)
[2019-12-20] MEDS ORDERED: VANCOMYCIN IV PER PHARMACY 1 EACH MISC MISCELLANE PRN (21:21)
[2019-12-20] MEDS ORDERED: ACETAMINOPHEN TAB 325 MG TAB PO PRN (21:22)
[2019-12-20] MEDS ORDERED: NALOXONE 0.4 MG/ML 1 ML VIAL IV PRN (21:22)
[2019-12-20] MEDS ORDERED: ONDANSETRON 4 MG/2 ML VIAL IVP PRN (21:22)
[2019-12-20] MEDS ORDERED: VANCOMYCIN 1,750 MG in SODIUM CHLORIDE 0.9% 500 ML 500 ML IVPB STA (21:23)
[2019-12-21] MEDS: HYDROmorphone 1 MG/ML 1 ML SYRINGE IVP PRN ×8 (03:10→22:53)
[2019-12-21] MEDS ORDERED: ALPRAZolam 1 MG TAB PO PRN (09:01)
[2019-12-21] MEDS: VANCOMYCIN 1,500 MG in SODIUM CHLORIDE 0.9% 250 ML IVPB SCH ×2 (11:05→22:54)
[2019-12-21] MEDS: KETOROLAC 15 MG/ML 1 ML VIAL IVP SCH ×2 (15:13→21:00)
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
[2019-12-21] MEDS ORDERED: HYDROcodone/APAP 10-325MG 1 EACH TAB PO SCH (16:00)
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
[2019-12-21] MEDS: ALPRAZolam 1 MG TAB PO PRN (19:13)
[2019-12-21] MEDS ORDERED: cloNIDine HCL 0.2 MG TAB PO SCH (21:00)
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
[2019-12-21] MEDS: HYDROcodone/APAP 10-325MG 1 EACH TAB PO SCH (23:59)
[2019-12-22] MEDS: COLLAGENASE 250 UNIT/GM OINTMENT 30 GM TUBE TOPICAL SCH ×2 (00:01→08:58)
[2019-12-22] MEDS: KETOROLAC 15 MG/ML 1 ML VIAL IVP SCH ×2 (02:40→08:53)
[2019-12-22] MEDS: HYDROmorphone 1 MG/ML 1 ML SYRINGE IVP PRN ×3 (02:40→08:45)
[2019-12-22] MEDS: ALPRAZolam 1 MG TAB PO PRN (03:05)
[2019-12-22] MEDS: HYDROcodone/APAP 10-325MG 1 EACH TAB PO SCH (08:17)
[2019-12-22 08:30] LABS: African American GFR (CKD) >90 (>60 ml/min/1.73 sqM); Non-African American GFR(CKD) >90 (>60 ml/min/1.73 sqM)
[2019-12-22 08:33] VITALS: BP 115/74; PULSE 67; RESP 16; TEMP 97.8
[2019-12-22] MEDS ORDERED: ASPIRIN 81 MG PO SCH (09:00)
[2019-12-22] MEDS ORDERED: CHLORTHALIDONE 25 MG TAB PO SCH (09:00)
[2019-12-22] MEDS ORDERED: COLLAGENASE 250 UNIT/GM OINTMENT 30 GM TUBE TOPICAL SCH (09:00)
[2019-12-22] MEDS ORDERED: atenoloL 50 MG TAB PO SCH (09:00)
--- NOTE | 2019-12-22 11:17 | P.PN ---
Subjective Progress Note Date: 12/22/19 CHIEF COMPLAINT: Right buttocks wound HISTORY OF PRESENT ILLNESS: Patient is being followed for a right gluteal wound. There is no evidence of abscess. Patient reports pain control. Denies any nausea or vomiting. Reports having bowel movements. She is tolerating diet. She is afebrile. PHYSICAL EXAM: VITAL SIGNS: Reviewed. GENERAL: Well-developed in no acute distress. HEENT: No sclera icterus. Extraocular movements grossly intact. Moist buccal mucosa. Head is atraumatic, normocephalic. ABDOMEN: Soft. Nondistended. Nontender. NEUROLOGIC: Alert and oriented. Cranial nerves II through XII grossly intact. ASSESSMENT: 1. Right gluteal wound possible pressure ulcer. No evidence of abscess. PLAN: -Continue antibiotics per ID -No surgical plan for debridement -Patient's can be discharged from surgical standpoint when cleared by infectious disease and her primary care Physician Senior Research Engineer note has been reviewed by physician. Signing provider agrees with the documented findings, assessment, and plan of care. Objective - Vital Signs Vital signs: Vital Signs Temp 97.8 F 12/22/19 08:10 Pulse 67 12/22/19 08:10 Resp 16 12/22/19 08:10 BP 115/74 12/22/19 08:10 Pulse Ox 98 12/22/19 08:10 Intake & Output 12/21/19 12/22/19 12/22/19 18:59 06:59 18:59 Intake Total 600 1030 Balance 600 1030 Intake: Intake, IV Titration 250 Amount Vancomycin 1,500 mg In 250 Sodium Chloride 0.9% 250 ml @ 125 mls/hr IVPB Q12H [facility] Rx#:[id number] Oral 600 780 Other: # Voids 1 2 1 - Labs CBC & Chem 7: 12/20/19 20:12 12/22/19 06:59 Labs: Microbiology - Last 24 Hours (Table) 12/20/19 19:41 Blood Culture - Preliminary Blood No Growth after 24 hours
[2019-12-22] MEDS ORDERED: VANCOMYCIN TROUGH DUE 1 EACH MISC MISCELLANE ONE (22:00)
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
== END 2019-12-22 09:14 | disposition left against medical advice (07) ==
LOC: EC 18:32 → 6PED 21:22
PROVIDERS: ADMIT Family Medicine; ATTEND Family Medicine
DX: T21.35XA Burn of third degree of buttock, initial encounter (principal); E11.9 Type 2 diabetes mellitus without complications; I10 Essential (primary) hypertension; Z86.73 Personal history of transient ischemic attack (TIA), and cerebral infarction without residual deficits; H54.62 Unqualified visual loss, left eye, normal vision right eye; Z86.14 Personal history of Methicillin resistant Staphylococcus aureus infection; F41.9 Anxiety disorder, unspecified; F32.9 Major depressive disorder, single episode, unspecified; F17.200 Nicotine dependence, unspecified, uncomplicated; Z82.49 Family history of ischemic heart disease and other diseases of the circulatory system; J44.9 Chronic obstructive pulmonary disease, unspecified; G89.29 Other chronic pain; M54.5 Low back pain; Z86.19 Personal history of other infectious and parasitic diseases; L03.90 Cellulitis, unspecified; Z79.82 Long term (current) use of aspirin; Z79.899 Other long term (current) drug therapy; Z88.5 Allergy status to narcotic agent
CPT/HCPCS: 96365; 96366 ×3; 96375 ×2; 96376 ×3; 96361; 99285; 36415; 80053; 82565; 83605; 85025; 87040; G0378 ×3; J3370 ×2; J2060; J2405; J1170 ×3; J1885 ×2

== ENCOUNTER 2019-12-23 19:17 | Emergency (ER) | payer MEDICARE, OTHER ==
[2019-12-23] MEDS ORDERED: HYDROmorphone 1 MG/ML 1 ML SYRINGE IVP STA ×2 (19:38→21:08)
[2019-12-23] MEDS ORDERED: ONDANSETRON 4 MG/2 ML VIAL IVP STA (19:39)
[2019-12-23 20:08] VITALS: RESP 18
[2019-12-23 20:15] LABS: Basophils # (A) 0.1 k/uL (0-0.2); Basophils % (A) 0 %; Eosinophils # (A) 0.2 k/uL (0-0.7); Eosinophils % (A) 1 %; HCT 45.4 % (34.0-46.0); Lymphocytes # (A) 2.8 k/uL (1.0-4.8); Lymphocytes % (A) 23 %; MCH 28.9 pg (25.0-35.0); MCHC 33.1 g/dL (31.0-37.0); MCV 87.3 fL (80.0-100.0); Mean Platelet Volume 7.3; Monocytes # (A) 0.5 k/uL (0-1.0); Monocytes % (A) 4 %; Neutrophils # (A) 8.7 k/uL (1.3-7.7); Neutrophils % (A) 70 %; Platelet Count 371 k/uL (150-450); RDW 12.9 % (11.5-15.5); WBC 12.3 k/uL (3.8-10.6)
[2019-12-23 20:44] LABS: ALT 14 U/L (4-34); AST 39 U/L (14-36); African American GFR (CKD) >90 (>60 ml/min/1.73 sqM); Albumin 4.8 g/dL (3.5-5.0); Alkaline Phosphatase 67 U/L (38-126); Anion Gap 13 mmol/L; Blood Urea Nitrogen 10 mg/dL (7-17); Calcium 10.2 mg/dL (8.4-10.2); Carbon Dioxide 18 mmol/L (22-30); Chloride 106 mmol/L (98-107); Glucose 122 mg/dL (74-99); Non-African American GFR(CKD) >90 (>60 ml/min/1.73 sqM); Sodium 137 mmol/L (137-145); Total Bilirubin 0.8 mg/dL (0.2-1.3); Total Protein 8.4 g/dL (6.3-8.2)
[2019-12-23 20:53] LABS: Potassium 4.5 mmol/L (3.5-5.1)
[2019-12-23 21:19] VITALS: BP 147/99; PULSE 74; TEMP 99.2
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
[2019-12-23] MEDS ORDERED: CEPHALEXIN 500MG STARTER PACK 4 CAP BTL PO STA (21:33)
[2019-12-23 21:54] LABS: Erythrocyte Sedimentation Rate 20 mm/hr (0-20)
== END 2019-12-23 21:46 | disposition home or self-care (01) ==
LOC: EC 19:17
DX: T21.25XD Burn of second degree of buttock, subsequent encounter (principal); L03.317 Cellulitis of buttock; H54.62 Unqualified visual loss, left eye, normal vision right eye; D72.829 Elevated white blood cell count, unspecified; F41.9 Anxiety disorder, unspecified; I10 Essential (primary) hypertension; F32.9 Major depressive disorder, single episode, unspecified; Z79.82 Long term (current) use of aspirin; Z79.899 Other long term (current) drug therapy; Z79.891 Long term (current) use of opiate analgesic; Z88.5 Allergy status to narcotic agent; Z87.891 Personal history of nicotine dependence; Z86.73 Personal history of transient ischemic attack (TIA), and cerebral infarction without residual deficits; X19.XXXD Contact with other heat and hot substances, subsequent encounter
CPT/HCPCS: 36415; 80053; 85652; 85025; 99283; 96374; 96375; 96376; J2405; J1170

== ENCOUNTER 2020-01-20 13:02 | Inpatient (IN) | payer MEDICARE, OTHER ==
[2020-01-20] MEDS ORDERED: ACETAMINOPHEN TAB 500 MG TAB PO STA (13:22)
[2020-01-20] MEDS ORDERED: ONDANSETRON 4 MG/2 ML VIAL IVP STA (13:22)
[2020-01-20] MEDS ORDERED: HYDROmorphone 1 MG/ML 1 ML SYRINGE IVP STA ×3 (13:22→18:57)
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
[2020-01-20] MEDS ORDERED: ALPRAZolam 1 MG TAB PO STA (14:09)
[2020-01-20 15:02] LABS: Basophils # (A) 0.1 k/uL (0-0.2); Basophils % (A) 1 %; Eosinophils # (A) 0.2 k/uL (0-0.7); Eosinophils % (A) 1 %; HGB 13.9 gm/dL (11.4-16.0); Lymphocytes # (A) 2.7 k/uL (1.0-4.8); Lymphocytes % (A) 23 %; MCH 29.1 pg (25.0-35.0); MCHC 32.3 g/dL (31.0-37.0); Mean Platelet Volume 7.2; Monocytes # (A) 0.6 k/uL (0-1.0); Monocytes % (A) 5 %; Neutrophils % (A) 68 %; Platelet Count 275 k/uL (150-450); RBC 4.78 m/uL (3.80-5.40); RDW 12.9 % (11.5-15.5); WBC 11.7 k/uL (3.8-10.6)
[2020-01-20 15:11] LABS: ALT 10 U/L (4-34); AST 18 U/L (14-36); African American GFR (CKD) >90 (>60 ml/min/1.73 sqM); Albumin 4.3 g/dL (3.5-5.0); Alkaline Phosphatase 61 U/L (38-126); Anion Gap 7 mmol/L; Blood Urea Nitrogen 14 mg/dL (7-17); Carbon Dioxide 29 mmol/L (22-30); Chloride 102 mmol/L (98-107); Glucose 90 mg/dL (74-99); Non-African American GFR(CKD) 81 (>60 ml/min/1.73 sqM); Potassium 4.2 mmol/L (3.5-5.1); Sodium 138 mmol/L (137-145); Total Bilirubin 0.5 mg/dL (0.2-1.3); Total Protein 7.5 g/dL (6.3-8.2)
[2020-01-20] MEDS ORDERED: ACETAMINOPHEN TAB 325 MG TAB PO PRN (15:43)
[2020-01-20] MEDS ORDERED: HYDROmorphone 1 MG/ML 1 ML SYRINGE IVP PRN (15:43)
[2020-01-20] MEDS ORDERED: NALOXONE 0.4 MG/ML 1 ML VIAL IV PRN (15:43)
[2020-01-20] MEDS ORDERED: ONDANSETRON 4 MG/2 ML VIAL IVP PRN (15:43)
[2020-01-20] MEDS: SODIUM CHLORIDE 0.9% 1,000 ML IV SCH (16:35)
[2020-01-20] MEDS: HYDROcodone/APAP 10-325MG 1 EACH TAB PO PRN (16:53)
[2020-01-20] MEDS: AMPICILLIN-SULBACTAM 3 GM in SODIUM CHLORIDE 0.9% 100 ML IVPB SCH (17:06)
[2020-01-20] MEDS: ALPRAZolam 1 MG TAB PO PRN (19:48)
[2020-01-20] MEDS: cloNIDine HCL 0.2 MG TAB PO SCH (19:49)
[2020-01-21] MEDS: AMPICILLIN-SULBACTAM 3 GM in SODIUM CHLORIDE 0.9% 100 ML IVPB SCH ×4 (00:05→17:00)
[2020-01-21] MEDS: HYDROcodone/APAP 10-325MG 1 EACH TAB PO PRN ×4 (00:05→21:51)
[2020-01-21] MEDS: CHLORTHALIDONE 25 MG TAB PO SCH (07:33)
[2020-01-21] MEDS: ASPIRIN 81 MG PO SCH (07:33)
[2020-01-21] MEDS: atenoloL 50 MG TAB PO SCH (07:33)
[2020-01-21] MEDS ORDERED: VANCOMYCIN IV PER PHARMACY 1 EACH MISC MISCELLANE PRN (08:36)
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
[2020-01-21] MEDS: ALPRAZolam 1 MG TAB PO PRN ×3 (09:28→23:44)
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
[2020-01-21] MEDS ORDERED: VANCOMYCIN 1,750 MG in SODIUM CHLORIDE 0.9% 500 ML 500 ML IVPB ONE (11:00)
[2020-01-21] MEDS: KETOROLAC 15 MG/ML 1 ML VIAL IVP SCH ×3 (12:09→23:45)
[2020-01-21] MEDS: SODIUM CHLORIDE 0.9% 1,000 ML IV SCH (17:00)
[2020-01-21] MEDS: cloNIDine HCL 0.2 MG TAB PO SCH (20:31)
[2020-01-21] MEDS ORDERED: HYDROmorphone 0.5 MG/0.5 ML SYRINGE IVP ONE (21:00)
[2020-01-21] MEDS: VANCOMYCIN 1,750 MG in SODIUM CHLORIDE 0.9% 500 ML 500 ML IVPB SCH (21:51)
[2020-01-22] MEDS: AMPICILLIN-SULBACTAM 3 GM in SODIUM CHLORIDE 0.9% 100 ML IVPB SCH ×4 (01:03→17:02)
[2020-01-22] MEDS: KETOROLAC 15 MG/ML 1 ML VIAL IVP SCH ×3 (05:26→17:03)
[2020-01-22] MEDS: ALPRAZolam 1 MG TAB PO PRN ×3 (05:32→21:21)
[2020-01-22] MEDS: HYDROcodone/APAP 10-325MG 1 EACH TAB PO PRN ×3 (05:32→21:21)
[2020-01-22] MEDS: ASPIRIN 81 MG PO SCH (09:10)
[2020-01-22] MEDS: CHLORTHALIDONE 25 MG TAB PO SCH (09:10)
[2020-01-22] MEDS: atenoloL 50 MG TAB PO SCH (09:11)
[2020-01-22] MEDS: VANCOMYCIN 1,750 MG in SODIUM CHLORIDE 0.9% 500 ML 500 ML IVPB SCH ×2 (10:10→22:32)
--- NOTE | 2020-01-22 10:59 | PN ---
PROGRESS NOTE DATE OF SERVICE: 01/21/2020 REASON FOR FOLLOWUP: Right gluteal abscess and cellulitis. INTERVAL HISTORY: The patient is currently afebrile. Pain to the right gluteal is slightly controlled with pain medication. No chest pain, shortness of breath or cough. No abdominal pain, no diarrhea. PHYSICAL EXAMINATION: Blood pressure 100/57 with a pulse of 62, temperature 97.9, he is 96% on room air. General description is a middle-aged female, lying in bed in no distress. RESPIRATORY SYSTEM: Unlabored breathing, clear to auscultation anteriorly. HEART: S1, S2. Regular rate and rhythm. ABDOMEN: Right gluteal area swelling, redness slightly decreased. Did have some drainage, which was cultured. DIAGNOSTIC IMPRESSION AND PLAN: Patient with right gluteal cellulitis and abscess with spontaneous drainage. Culture has been obtained to guide further antibiotic therapy. She is currently covered with vancomycin to continue and monitor clinical course closely. MMODL / IJN: [id number] /
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
--- NOTE | 2020-01-22 11:11 | PN ---
PROGRESS NOTE DATE: 01/20/20 CHIEF COMPLAINT: Abscess of the right buttock. HISTORY OF PRESENT ILLNESS: This lady is having a lot of difficulty with discomfort in the area of the abscess. She was seen by Surgery and they will be monitoring this and possibly doing an incision and drainage. She has become very vocal and aggressive about demanding more analgesics. PHYSICAL EXAMINATION: Chest is clear. Cardiac exam is normal. Abdomen is soft, nontender and the area in the buttock is still firm and slightly fluctuant. IMPRESSION: 1. Abscess of the right buttock. PLAN: 1. IV antibiotics. 2. Probable incision and drainage. 3. Try to control this lady's analgesic use. MMODL / IJN: [id number] /
--- NOTE | 2020-01-22 13:05 | PN ---
PROGRESS NOTE DATE OF SERVICE: 01/22/2020 REASON FOR FOLLOWUP: Right gluteal abscess and cellulitis. INTERVAL HISTORY: Patient is currently afebrile. The patient is feeling better. Breathing comfortably. Still complaining of pain to the right gluteal area. No chest pain. No cough. No abdominal pain. No diarrhea. PHYSICAL EXAMINATION: Blood pressure 127/77 with a pulse of 72. Temperature is 97.3. She is afebrile. 95% on room air. General description: The patient is a middle-aged female lying in bed in no distress. Respiratory system: Unlabored breathing, clear to auscultation anteriorly. Heart S1, S2. Regular rate and rhythm. Abdomen soft, no tenderness. Gluteal area swelling and redness has slightly decreased. LABS: Wound culture pending. No CBC was done today. DIAGNOSTIC IMPRESSION AND PLAN: Patient with right gluteal abscess and cellulitis with spontaneous drainage. Culture has been obtained which is currently pending. Keep the patient on Unasyn and vanco while waiting for the culture to finalize to determine discharge antibiotics. Continue supportive care. MMODL / IJN: [id number] /
--- NOTE | 2020-01-22 13:17 | P.PN ---
Subjective Progress Note Date: 01/22/20 CHIEF COMPLAINT: Right buttock cellulitis HISTORY OF PRESENT ILLNESS: We are following patient in regards to her right buttocks cellulitis. There has been slight improvement in the erythema. She still reporting pain in the buttocks area. She is afebrile. Tolerating regular diet. PHYSICAL EXAM: VITAL SIGNS: Reviewed. GENERAL: Well-developed in no acute distress. HEENT: No sclera icterus. Extraocular movements grossly intact. Moist buccal mucosa. Head is atraumatic, normocephalic. ABDOMEN: Soft. Nondistended. Nontender. NEUROLOGIC: Alert and oriented. Cranial nerves II through XII grossly intact. SKIN: Area of cellulitis on the right buttocks with minimal drainage. No definite abscess. The area is inflamed and evidence of induration. ASSESSMENT: 1. Right buttock cellulitis with spontaneous drainage. Showing improvement. PLAN: -Continue antibiotics per ID -No plans for surgical intervention -Patient follow-up with Dr. Brewer in 1 week Physician Bicycle Designer note has been reviewed by physician. Signing provider agrees with the documented findings, assessment, and plan of care. Objective - Vital Signs Vital signs: Vital Signs Temp 97.3 F L 01/22/20 09:00 Pulse 72 01/22/20 09:00 Resp 12 01/22/20 09:00 BP 127/77 01/22/20 09:00 Pulse Ox 95 01/22/20 02:32 Intake & Output 01/21/20 01/22/20 01/22/20 18:59 06:59 18:59 Intake Total 100 Balance 100 Intake: Intake, IV Titration 100 Amount Ampicillin-Sulbactam 3 gm 100 In Sodium Chloride 0.9% 100 ml @ 200 mls/hr IVPB Q6HR [facility] Rx#:[id number] Other: Voiding Method Toilet Toilet # Voids 1 1 - Labs CBC & Chem 7: 01/20/20 14:45 01/20/20 14:45 Labs: Microbiology - Last 24 Hours (Table) 01/21/20 14:00 Gram Stain - Preliminary Buttock Wound Culture - Preliminary 01/21/20 14:00 Anaerobic Culture - Preliminary Buttock 01/20/20 13:22 Blood Culture - Preliminary Blood No Growth after 24 hours
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
[2020-01-22] MEDS: SODIUM CHLORIDE 0.9% 1,000 ML IV SCH (15:43)
[2020-01-22] MEDS ORDERED: traZODone HCL 100 MG TAB PO PRN (21:15)
[2020-01-22] MEDS: cloNIDine HCL 0.2 MG TAB PO SCH (21:21)
[2020-01-23] MEDS: KETOROLAC 15 MG/ML 1 ML VIAL IVP SCH ×4 (00:47→17:34)
[2020-01-23] MEDS: AMPICILLIN-SULBACTAM 3 GM in SODIUM CHLORIDE 0.9% 100 ML IVPB SCH ×3 (00:48→11:30)
[2020-01-23] MEDS: HYDROcodone/APAP 10-325MG 1 EACH TAB PO PRN ×3 (06:12→21:38)
[2020-01-23] MEDS: ALPRAZolam 1 MG TAB PO PRN ×3 (06:13→21:38)
[2020-01-23] MEDS: atenoloL 50 MG TAB PO SCH ×2 (07:35→08:33)
[2020-01-23] MEDS: ASPIRIN 81 MG PO SCH (08:33)
[2020-01-23] MEDS: CHLORTHALIDONE 25 MG TAB PO SCH (08:33)
[2020-01-23 08:43] LABS: Basophils # (A) 0.1 k/uL (0-0.2); Basophils % (A) 1 %; Eosinophils # (A) 0.3 k/uL (0-0.7); Eosinophils % (A) 4 %; HCT 41.8 % (34.0-46.0); HGB 13.4 gm/dL (11.4-16.0); Lymphocytes # (A) 2.6 k/uL (1.0-4.8); Lymphocytes % (A) 33 %; MCH 29.2 pg (25.0-35.0); MCHC 32.1 g/dL (31.0-37.0); MCV 91.2 fL (80.0-100.0); Mean Platelet Volume 7.5; Monocytes # (A) 0.4 k/uL (0-1.0); Monocytes % (A) 5 %; Neutrophils # (A) 4.4 k/uL (1.3-7.7); Neutrophils % (A) 55 %; Platelet Count 286 k/uL (150-450); RBC 4.58 m/uL (3.80-5.40); RDW 12.9 % (11.5-15.5)
[2020-01-23] MEDS ORDERED: VANCOMYCIN TROUGH DUE 1 EACH MISC MISCELLANE ONE (09:00)
[2020-01-23] MEDS: VANCOMYCIN 1,750 MG in SODIUM CHLORIDE 0.9% 500 ML 500 ML IVPB SCH (10:22)
--- NOTE | 2020-01-23 11:04 | P.PN ---
Subjective Progress Note Date: 01/23/20 CHIEF COMPLAINT: Right buttock cellulitis HISTORY OF PRESENT ILLNESS: Patient seen and examined with Dr. Brewer. We are following patient in regards to her right buttocks cellulitis. Cellulitis continues to show improvement. Culture growing presumptive MRSA. Infectious disease following. She is afebrile. WBC has normalized 8.0 PHYSICAL EXAM: VITAL SIGNS: Reviewed. GENERAL: Well-developed in no acute distress. HEENT: No sclera icterus. Extraocular movements grossly intact. Moist buccal mucosa. Head is atraumatic, normocephalic. ABDOMEN: Soft. Nondistended. Nontender. NEUROLOGIC: Alert and oriented. Cranial nerves II through XII grossly intact. SKIN: Area of cellulitis on the right buttocks has had decrease in erythema. ASSESSMENT: 1. Right buttock cellulitis with spontaneous drainage. Showing improvement. PLAN: -Continue antibiotics per ID -No plans for surgical intervention -Patient follow-up with Dr. 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 Signing provider agrees with the documented findings, assessment, and plan of care. Objective - Vital Signs Vital signs: Vital Signs Temp 97.7 F 01/23/20 05:00 Pulse 69 01/23/20 08:30 Resp 18 01/23/20 05:00 BP 129/88 01/23/20 08:30 Pulse Ox 94 L 01/23/20 05:00 Intake & Output 01/22/20 01/23/20 01/23/20 18:59 06:59 18:59 Intake Total 200 890 900 Balance 200 890 900 Intake: Intake, IV Titration 200 600 Amount Ampicillin-Sulbactam 3 gm 200 100 In Sodium Chloride 0.9% 100 ml @ 200 mls/hr IVPB Q6HR SANDRO Rx#:[id number] Vancomycin 1,750 mg In 500 Sodium Chloride 0.9% 500 ml 500 ml @ 167 mls/hr IVPB Q12H SANDRO Rx#: [id number] Oral 290 900 Other: Voiding Method Toilet Toilet # Voids 1 0 # Bowel Movements 1 - Labs CBC & Chem 7: 01/23/20 08:23 01/23/20 08:23 Labs: Microbiology - Last 24 Hours (Table) 01/21/20 14:00 Gram Stain - Preliminary Buttock Wound Culture - Preliminary Presumptive MRSA 01/20/20 13:22 Blood Culture - Preliminary Blood No Growth after 48 hours
--- NOTE | 2020-01-23 13:04 | MISC ---
MISCELLANOUS REPORT QUERY: Sepsis ruled out. MMODL / IJN: [id number] /
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
--- NOTE | 2020-01-23 16:10 | PN ---
PROGRESS NOTE DATE OF SERVICE: 01/23/2020 REASON FOR FOLLOWUP: Right gluteal abscess and cellulitis. INTERVAL HISTORY: Patient is currently afebrile. The patient is feeling better. Breathing comfortably. The patient denies having any chest pain. No shortness of breath or cough. No nausea, no vomiting, no abdominal pain, or worsening pain to the right gluteal area. PHYSICAL EXAMINATION: Blood pressure is 105/71 with a pulse of 51, temperature 98, she is 97% on room air. General description is a middle-aged female, lying in bed in no distress. RESPIRATORY SYSTEM: Unlabored breathing, clear to auscultation anteriorly. HEART: S1, S2. Regular rate and rhythm. ABDOMEN: Soft, no tenderness. The right gluteal area swelling has decreased. LABS: Hemoglobin 13.1, white count 8.0, creatinine 0.86. Vanco trough is slightly elevated at 21.1. Wound culture with presumptive MRSA. Blood culture negative. DIAGNOSTIC IMPRESSION AND PLAN: Patient with right gluteal abscess with spontaneous drainage. She will continue vancomycin only for sensitivity to finalize. Unasyn will be discontinued. Continue supportive care. MMODL / IJN: [id number] /
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
[2020-01-23] MEDS: cloNIDine HCL 0.2 MG TAB PO SCH (20:19)
[2020-01-23] MEDS: SODIUM CHLORIDE 0.9% 1,000 ML IV SCH (20:20)
[2020-01-23] MEDS: VANCOMYCIN 1,500 MG in SODIUM CHLORIDE 0.9% 250 ML IVPB SCH (22:12)
[2020-01-24] MEDS: KETOROLAC 15 MG/ML 1 ML VIAL IVP SCH ×2 (00:16→05:23)
[2020-01-24 00:39] VITALS: RESP 18
[2020-01-24 05:14] VITALS: BP 131/86; PULSE 60; TEMP 97
[2020-01-24] MEDS: HYDROcodone/APAP 10-325MG 1 EACH TAB PO PRN (05:23)
[2020-01-24] MEDS: ALPRAZolam 1 MG TAB PO PRN (05:23)
[2020-01-24] MEDS: ASPIRIN 81 MG PO SCH (08:14)
[2020-01-24] MEDS: CHLORTHALIDONE 25 MG TAB PO SCH (08:14)
[2020-01-24] MEDS: atenoloL 50 MG TAB PO SCH (08:14)
[2020-01-24] MEDS: VANCOMYCIN 1,500 MG in SODIUM CHLORIDE 0.9% 250 ML IVPB SCH (10:25)
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
== END 2020-01-24 11:03 | disposition left against medical advice (07) | DRG 603 ==
LOC: EC 13:02 → 1SOBS 15:43 → OBSVTOIN 17:31 → 6NMEDSUR 01-22 15:55
PROVIDERS: ADMIT Family Medicine; ATTEND Family Medicine
DX: L03.317 Cellulitis of buttock (principal); T21.35XA Burn of third degree of buttock, initial encounter; F11.20 Opioid dependence, uncomplicated; H54.62 Unqualified visual loss, left eye, normal vision right eye; I10 Essential (primary) hypertension; F32.9 Major depressive disorder, single episode, unspecified; F41.9 Anxiety disorder, unspecified; M65.9 Synovitis and tenosynovitis, unspecified; Z79.899 Other long term (current) drug therapy; Z79.82 Long term (current) use of aspirin; Z88.5 Allergy status to narcotic agent; Z86.73 Personal history of transient ischemic attack (TIA), and cerebral infarction without residual deficits; Z87.891 Personal history of nicotine dependence; Z82.49 Family history of ischemic heart disease and other diseases of the circulatory system; Z86.14 Personal history of Methicillin resistant Staphylococcus aureus infection; Z87.828 Personal history of other (healed) physical injury and trauma
CPT/HCPCS: 36415; 80053; 80202; 82565; 83605; 85025; 87040; 87070; 87075; 87077; 87186; 87205; 96374; 96375; 96376; 99284

== ENCOUNTER → 2020-02-19 | Outpatient (CLI) | payer MEDICARE, OTHER ==
[2020-02-19 10:51] LABS: Potassium 4.2 mmol/L (3.5-5.1)
[2020-02-19 11:20] LABS: Basophils # (A) 0.1 k/uL (0-0.2); Basophils % (A) 1 %; Eosinophils # (A) 0.2 k/uL (0-0.7); Eosinophils % (A) 2 %; HCT 44.6 % (34.0-46.0); HGB 14.8 gm/dL (11.4-16.0); Lymphocytes # (A) 3.1 k/uL (1.0-4.8); Lymphocytes % (A) 30 %; MCH 30.4 pg (25.0-35.0); MCHC 33.1 g/dL (31.0-37.0); MCV 91.9 fL (80.0-100.0); Mean Platelet Volume 8.7; Monocytes # (A) 0.5 k/uL (0-1.0); Monocytes % (A) 5 %; Neutrophils # (A) 6.3 k/uL (1.3-7.7); Neutrophils % (A) 61 %; Platelet Count 297 k/uL (150-450); RBC 4.85 m/uL (3.80-5.40); RDW 12.8 % (11.5-15.5); WBC 10.3 k/uL (3.8-10.6)
== END | disposition home or self-care (01) ==
LOC: LABPAT 08:56
PROVIDERS: ATTEND Orthopaedic Surgery
DX: Z01.812 Encounter for preprocedural laboratory examination (principal); M65.331 Trigger finger, right middle finger
CPT/HCPCS: 80051; 85025

== ENCOUNTER → 2020-02-22 | Day surgery (SDC) | payer MEDICARE, OTHER ==
--- NOTE | 2020-02-21 16:17 | HP ---
HISTORY AND PHYSICAL DATE OF SURGERY: 02/22/2020 Natalie Avila is a 59-year-old patient seen with symptomatic right middle finger trigger finger. I discussed options. She elected to proceed with release A1 debra, right middle finger. Consent was obtained. PAST MEDICAL HISTORY: Anxiety. PAST SURGICAL HISTORY: Noncontributory. MEDICATIONS: Aspirin, clonidine and Xanax. ALLERGIES: MORPHINE SULFATE, OXYCONTIN. SOCIAL HISTORY: She smokes cigarettes. PHYSICAL EVALUATION OF THE RIGHT MIDDLE FINGER/RIGHT HAND: Tenderness along the A1 debra area, right middle finger, clicking, catching and triggering there. Nontender in remaining A1 debra areas. Carpal compression is negative. Distal neurovascular exam is intact. RADIOGRAPHS: Radiographs of the right hand failed to reveal osseous abnormality. IMPRESSION: 1. Right middle finger trigger finger. 2. Tobacco use. PLAN: Release A1 debra, right middle finger. MMODL / IJN: [id number] /
[~2020-02-22] MED LIST: DEXAMETHASONE SOD PHOSPHATE 10 MG/ML 1 ML VIAL IV ONE; HYDROmorphone 0.5 MG/0.5 ML SYRINGE IVP PRN; LACTATED RINGERS 1,000 ML IV SCH; ONDANSETRON 4 MG/2 ML VIAL IVP ONE
== END ==
LOC: OR 06:59
PROVIDERS: ATTEND Orthopaedic Surgery
DX: Z53.8 Procedure and treatment not carried out for other reasons (principal)

== ENCOUNTER 2020-03-01 09:08 | Emergency (ER) | payer MEDICARE, OTHER ==
[2020-03-01 09:16] VITALS: RESP 18; TEMP 98
[2020-03-01] MEDS ORDERED: ALPRAZolam 0.5 MG TAB PO STA (09:56)
[2020-03-01] MEDS ORDERED: SULFAMETH-TMP DS STARTER PACK 2 TAB BTL PO STA (10:57)
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
[2020-03-01 11:17] VITALS: BP 154/92; PULSE 69
== END 2020-03-01 11:15 | disposition home or self-care (01) ==
LOC: EC 09:08
DX: L02.412 Cutaneous abscess of left axilla (principal); T22.35 Burn of third degree of shoulder; F32.9 Major depressive disorder, single episode, unspecified; F41.9 Anxiety disorder, unspecified; I10 Essential (primary) hypertension; Z79.82 Long term (current) use of aspirin; Z79.899 Other long term (current) drug therapy; Z88.5 Allergy status to narcotic agent; Z86.73 Personal history of transient ischemic attack (TIA), and cerebral infarction without residual deficits; Z86.14 Personal history of Methicillin resistant Staphylococcus aureus infection; Z87.891 Personal history of nicotine dependence
CPT/HCPCS: 10060; 87070; 87205; 99283

== ENCOUNTER 2020-04-15 12:29 | Emergency (ER) | payer MEDICARE, OTHER ==
[2020-04-15 12:38] VITALS: RESP 18
[2020-04-15] MEDS ORDERED: HYDROmorphone 1 MG/ML 1 ML SYRINGE IM STA (12:53)
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
--- NOTE | 2020-04-15 13:50 | CT ---
EXAMINATION TYPE: CT brain cspine wo con, CT facial bones wo con DATE OF EXAM: 04/15/2020 COMPARISON: CT brain June 20, 2017. CT cervical spine April 08, 2017. HISTORY: Fall yesterday with Left sided injury. Headache, facial pain, neck pain. CT DLP: 1221.6 mGycm. Automated Exposure Control for Dose Reduction was Utilized. TECHNIQUE: CT scan of the head and facial bones, and cervical spine are performed without contrast. FINDINGS: There is no acute intracranial hemorrhage or midline shift identified. Diffuse ventricula r prominence greatest over the bilateral frontal lobes redemonstrated. Bull-white matter differentiat ion fairly well maintained. The calvarium is intact. Age-indeterminate minimally displaced comminuted fracture through the nasal bones with slight step-of f. No significant soft tissue swelling. Zygomatic arches are intact. The orbital floors and rascon are intact. Globes are intact bilaterally. Intraconal fat is preserved. Pterygoid plates are intact. Lyssa r complete opacification left maxillary sinus with mild mucosal thickening left ethmoid sinuses. . Cervical spine is visualized in its entirety from C1 through upper thoracic levels and redemonstrates slight scoliotic curvature on coronal images without evidence of acute fracture or dislocation. Old healed fracture through the midportion of the C2 vertebra with slight anterior step-off superior por tion is redemonstrated. Prevertebral soft tissue remains within normal limits. The C1-C2 articulatio n remains within normal limits on coronal images. Vertebral body heights are maintained. Mild disc s pace narrowing with mild to moderate spurring at the C6 level redemonstrated. Review of axial images shows multilevel uncovertebral facet degenerative changes contributing to multilevel neural foraminal narrowing. Lung apices show no pneumothorax bilaterally. IMPRESSION: 1. There is no acute fracture or dislocation evident in the cervical spine. 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 2. No acute intracranial hemorrhage or midline shift is seen. 3. Age indeterminate favored chronic minimally displaced nasal bone fractures. No additional acute fa cial bone fracture or dislocation. Incidental left maxillary sinus disease.
--- NOTE | 2020-04-15 13:58 | XR ---
EXAMINATION TYPE: XR lumbosacral spine min 4V DATE OF EXAM: 04/15/2020 CLINICAL HISTORY: Chronic low back pain. TECHNIQUE: Frontal, lateral, and oblique images of the lumbar spine are obtained. COMPARISON: CT lumbar spine April 08, 2017. Lumbar spine x-ray December 19, 2018 FINDINGS: There are 5 lumbar type vertebral bodies redemonstrated. The lumbar spine shows stable an d straightened alignment without evidence of acute fracture or dislocation. Vertebral body heights re main within normal limits. Mild to moderate multilevel anterior and lateral spurring is redemonstrat ed. Mild disc space narrowing L2-L3 and L3-L4 levels redemonstrated. Uncovertebral facet degenerative change mid to lower lumbar spine again seen greatest lower lumbar levels. The oblique images appear within normal limits. The overlying soft tissue appears unremarkable. IMPRESSION: As above. No significant change from prior studies.
[2020-04-15] MEDS ORDERED: HYDROcodone/APAP 10-325MG 1 EACH TAB PO ONE (14:10)
[2020-04-15 14:31] VITALS: BP 142/74; PULSE 70; TEMP 98.3
== END 2020-04-15 14:31 | disposition home or self-care (01) ==
LOC: EC 12:29
DX: S05.12XA Contusion of eyeball and orbital tissues, left eye, initial encounter (principal); M54.5 Low back pain; I10 Essential (primary) hypertension; H54.62 Unqualified visual loss, left eye, normal vision right eye; F41.9 Anxiety disorder, unspecified; F32.9 Major depressive disorder, single episode, unspecified; Z79.899 Other long term (current) drug therapy; Z79.82 Long term (current) use of aspirin; Z79.891 Long term (current) use of opiate analgesic; Z88.5 Allergy status to narcotic agent; Z86.73 Personal history of transient ischemic attack (TIA), and cerebral infarction without residual deficits; Z87.891 Personal history of nicotine dependence; W01.198A Fall on same level from slipping, tripping and stumbling with subsequent striking against other object, initial encounter; Y92.009 Unspecified place in unspecified non-institutional (private) residence as the place of occurrence of the external cause
CPT/HCPCS: 72110; 72125; 70486; 70450; 99284; 96372; J1170

== ENCOUNTER 2020-10-05 18:36 | Emergency (ER) | payer MEDICARE, OTHER ==
[2020-10-05 18:53] VITALS: BP 121/83; PULSE 93; RESP 17; TEMP 98
--- NOTE | 2020-10-05 18:58 | ED ---
General Adult HPI - General Chief complaint: Overdose Stated complaint: Overdose Time Seen by Provider: 10/05/20 18:38 Source: patient, police, EMS Mode of arrival: EMS Limitations: no limitations - History of Present Illness Initial comments: Dictation was produced using [employer] dictation software. please excuse any grammatical, word or spelling errors. Chief Complaint: 60-year-old female past medical history of stroke, hypertension presents to the emergency department for overdose. History of Present Illness: Patient is a 60-year-old female she was brought in for overdose. Patient is brought in by EMS. Patient was witnessed to be unresponsive. She was given Narcan at approximately 6:15 PM by EMS with significant improvement of mentation. Patient does not recall what happened. His being suicidal. She doesn't does not have any complaints at this time. No pain or shortness of breath or nausea. Patient is allegedly amnestic to the event. She gets opiate prescriptions from her neurologist. The ROS documented in this emergency department record has been reviewed and confirmed by me. Those systems with pertinent positive or negative responses have been documented in the HPI. All other systems are other negative and/or noncontributory. PHYSICAL EXAM: General Impression: Alert and oriented x3, not in acute distress HEENT: Normocephalic atraumatic, extra-ocular movements intact, pupils equal and reactive to light bilaterally, mucous membranes moist. Cardiovascular: Heart regular rate and rhythm Chest: Able to complete full sentences, no retractions, no tachypnea Abdomen: abdomen soft, non-tender, non-distended, no organomegaly Musculoskeletal: Pulses present and equal in all extremities, no peripheral edema Motor: no focal deficits noted Neurological: CN II-XII grossly intact, no focal motor or sensory deficits noted Skin: Intact with no visualized rashes Psych: Normal affect and mood ED course: 60-year-old female presents after overdose. She was given Narcan by EMS with improvement of mentation. Clinical presentation consistent with opiate overdose.. Vital signs upon arrival are within acceptable limits. Patient is not suicidal. She is not showing any signs of acute psychosis. Patient requested desire to leave AGAINST MEDICAL ADVICE. She is not psychotic, showing any signs of intoxication or suicidal. Patient understands that she received a antidote for opiate prescriptions and that antidote could potentially wear off causing her to stop breathing again. She understands the risk. Risks, Benefits, and Treatment alternatives were discussed in detail with the patient. The patient is alert and oriented X 3 and has the capacity to make an informed decision. The risks of increased morbidity including the possibly of were explained to and understood by the patient who is choosing to leave against medical advice. The patient is encouraged to return any time should they want further treatment and diagnostic investigation. - Related Data Home Medications Medication Instructions Recorded Confirmed ALPRAZolam [Xanax] 2 mg PO TID PRN 12/20/19 03/01/20 Aspirin [[place] Aspirin EC] 81 mg PO DAILY 12/20/19 03/01/20 HYDROcodone/APAP 10-325MG [[place] 1 tab PO TID 12/20/19 03/01/20 10-325] Atenolol [Tenormin] 50 mg PO DAILY 03/01/20 03/01/20 Previous Rx's Medication Instructions Recorded Sulfamethox-Tmp 800-160Mg [Bactrim 1 tab PO Q12HR 10 Days #20 tab 03/01/20 DS 800-160 mg] Allergies Allergy/AdvReac Type Severity Reaction Status Date / Time morphine AdvReac Hallucinati Verified 10/05/20 18:53 ons Review of Systems ROS Statement: Those systems with pertinent positive or pertinent negative responses have been documented in the HPI. ROS Other: All systems not noted in ROS Statement are negative. 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 Date of last positivie culture/infection: 03/01/20 MDRO Source:: Left Axilla Additional Past Surgical History / Comment(s): facial reconstructive, Past Anesthesia/Blood Transfusion Reactions: No Reported Reaction Past Psychological History: Anxiety, Depression Smoking Status: Former smoker Past Alcohol Use History: None Reported Past Drug Use History: Marijuana - Past Family History Mother Family Medical History: No Reported History Father Family Medical History: Hypertension General Exam Limitations: no limitations Course Vital Signs 10/05/20 18:44 Temperature 98.0 F Pulse Rate 93 Respiratory 17 Rate Blood Pressure 121/83 O2 Sat by Pulse 98 Oximetry Disposition Clinical Impression: Drug overdose Disposition: Left Against Medical Advice Condition: Undetermined Referrals: Freddy Hernandez MD [Primary Care Provider] - 1-2 days
== END 2020-10-05 19:44 | disposition left against medical advice (07) ==
LOC: EC 18:36
DX: T50.7X2A Poisoning by analeptics and opioid receptor antagonists, intentional self-harm, initial encounter (principal); I10 Essential (primary) hypertension; Z86.73 Personal history of transient ischemic attack (TIA), and cerebral infarction without residual deficits; Z87.891 Personal history of nicotine dependence; Z79.82 Long term (current) use of aspirin; Z82.49 Family history of ischemic heart disease and other diseases of the circulatory system; Z88.5 Allergy status to narcotic agent; Z53.29 Procedure and treatment not carried out because of patient's decision for other reasons
CPT/HCPCS: 93005; 99284

== ENCOUNTER 2021-02-04 06:27 | Emergency (ER) | payer MEDICARE, OTHER ==
[2021-02-04] MEDS ORDERED: SODIUM CHLORIDE 0.9% 1,000 ML IV STA (06:49)
[2021-02-04] MEDS ORDERED: METOCLOPRAMIDE 5 MG/ML 2 ML VIAL IVP STA (06:49)
[2021-02-04] MEDS ORDERED: HYDROmorphone 0.5 MG/0.5 ML SYRINGE IVP STA (06:49)
--- NOTE | 2021-02-04 06:56 | ED ---
Abdominal Pain HPI - General Chief Complaint: Abdominal Pain Stated Complaint: Abdominal Pain, nausea, vomiting Time Seen by Provider: 02/04/21 06:30 Source: patient, EMS, RN notes reviewed Mode of arrival: EMS Limitations: no limitations - History of Present Illness Initial Comments: Patient is 60-year-old female presenting to ER with abdominal pain that started yesterday. Patient reports pain is 9 out of 10 pain is diffuse not made worse on palpation. Patient reports nausea and vomiting since yesterday. Reporting no problems with constipation or urination, denies any blood in stool. Patient denies any contributory past medical history and has no known sick contacts. Patient states she contacted her PCP who told her she most likely has gastr oenteritis. She has a chest pain or shortness breath no headache no dizziness no reported fevers. MD Complaint: abdominal pain Location: diffuse Radiation: none Migration to: no migration Severity: severe Quality: cramping, stabbing - Related Data Home Medications Medication Instructions Recorded Confirmed ALPRAZolam [Xanax] 2 mg PO HS 12/20/19 02/04/21 Aspirin [[place] Aspirin EC] 81 mg PO DAILY 12/20/19 02/04/21 HYDROcodone/APAP 10-325MG [[place] 1 tab PO QID 12/20/19 02/04/21 10-325] Previous Rx's Medication Instructions Recorded Dicyclomine [Bentyl] 20 mg PO TID #30 tablet 02/04/21 Ondansetron Odt [Zofran Odt] 4 mg PO Q8HR PRN #10 tab 02/04/21 Allergies Allergy/AdvReac Type Severity Reaction Status Date / Time morphine AdvReac Hallucinati Verified 02/04/21 08:35 ons Review of Systems ROS Statement: Those systems with pertinent positive or pertinent negative responses have been documented in the HPI. ROS Other: All systems not noted in ROS Statement are negative. 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 Date of last positivie culture/infection: 03/01/20 MDRO Source:: Left Axilla Additional Past Surgical History / Comment(s): facial reconstructive, Past Anesthesia/Blood Transfusion Reactions: No Reported Reaction Past Psychological History: Anxiety, Depression Smoking Status: Former smoker Past Alcohol Use History: None Reported Past Drug Use History: Marijuana - Past Family History Mother Family Medical History: No Reported History Father Family Medical History: Hypertension General Exam Limitations: no limitations General appearance: alert, in distress Head exam: Present: atraumatic, normocephalic, normal inspection Eye exam: Present: other (Without left eye) Neck exam: Present: normal inspection. Absent: tenderness, meningismus, lymphadenopathy Respiratory exam: Present: normal lung sounds bilaterally. Absent: respiratory distress, wheezes, rales, rhonchi, stridor Cardiovascular Exam: Present: normal rhythm, bradycardia, normal heart sounds. Absent: systolic murmur, diastolic murmur, rubs, gallop, clicks GI/Abdominal exam: Present: soft, tenderness, guarding, hyperactive bowel sounds Rectal exam: Present: deferred Extremities exam: Present: normal inspection, full ROM, normal capillary refill. Absent: tenderness, pedal edema, joint swelling, calf tenderness Back exam: Present: normal inspection Neurological exam: Present: alert, oriented X3, CN II-XII intact Psychiatric exam: Present: normal affect, normal mood Skin exam: Present: warm, dry, intact, normal color. Absent: rash Course Vital Signs 02/04/21 02/04/21 06:27 09:45 Temperature 98.2 F Pulse Rate 76 61 Respiratory 24 18 Rate Blood Pressure 178/113 174/107 O2 Sat by Pulse 98 99 Oximetry Medical Decision Making - Medical Decision Making CT shows evidence of enteritis. Labs do not reveal any significant maladies. Patient discharged in stable condition return parameters were discussed. - Lab Data Result diagrams: 02/04/21 06:58 02/04/21 06:58 Lab Results 02/04/21 02/04/21 02/04/21 Range/Units 06:58 06:58 06:58 WBC 11.4 H (3.8-10.6) k/uL RBC 5.13 (3.80-5.40) m/uL Hgb 15.4 (11.4-16.0) gm/dL Hct 44.7 (34.0-46.0) % MCV 87.2 (80.0-100.0) fL MCH 30.0 (25.0-35.0) pg MCHC 34.4 (31.0-37.0) g/dL RDW 12.7 (11.5-15.5) % Plt Count 337 (150-450) k/uL MPV 7.8 Neutrophils % 83 % Lymphocytes % 13 % Monocytes % 3 % Eosinophils % 0 % Basophils % 0 % Neutrophils # 9.5 H (1.3-7.7) k/uL Lymphocytes # 1.5 (1.0-4.8) k/uL Monocytes # 0.3 (0-1.0) k/uL Eosinophils # 0.1 (0-0.7) k/uL Basophils # 0.0 (0-0.2) k/uL Sodium 139 (137-145) mmol/L Potassium 3.8 (3.5-5.1) mmol/L Chloride 104 (98-107) mmol/L Carbon Dioxide 23 (22-30) mmol/L Anion Gap 12 mmol/L BUN 10 (7-17) mg/dL Creatinine 0.51 L (0.52-1.04) mg/dL Est GFR (CKD-EPI)AfAm >90 (>60 ml/min/1.73 sqM) Est GFR (CKD-EPI)NonAf >90 (>60 ml/min/1.73 sqM) Glucose 197 H (74-99) mg/dL Plasma Lactic Acid Reg (0.7-2.0) mmol/L Calcium 10.3 H (8.4-10.2) mg/dL Total Bilirubin 0.8 (0.2-1.3) mg/dL AST 25 (14-36) U/L ALT 14 (4-34) U/L Alkaline Phosphatase 74 (38-126) U/L Total Protein 8.3 H (6.3-8.2) g/dL Albumin 4.7 (3.5-5.0) g/dL Amylase 53 (30-110) U/L Lipase 41 (23-300) U/L Urine Color Yellow Urine Appearance Clear (Clear) Urine pH 7.5 (5.0-8.0) Ur Specific [place] 1.018 (1.001-1.035) Urine Protein 2+ H (Negative) Urine Glucose (UA) Trace H (Negative) Urine Ketones 2+ H (Negative) Urine Blood Trace H (Negative) Urine Nitrite Negative (Negative) Urine Bilirubin Negative (Negative) Urine Urobilinogen <2.0 (<2.0) mg/dL Ur Leukocyte Esterase Negative (Negative) Urine RBC 11 H (0-5) /hpf Urine WBC 1 (0-5) /hpf Ur Squamous Epith Cells 1 (0-4) /hpf Urine Bacteria Rare H (None) /hpf Urine Mucus Occasional H (None) /hpf 02/04/21 Range/Units 06:58 WBC (3.8-10.6) k/uL RBC (3.80-5.40) m/uL Hgb (11.4-16.0) gm/dL Hct (34.0-46.0) % MCV (80.0-100.0) fL MCH (25.0-35.0) pg MCHC (31.0-37.0) g/dL RDW (11.5-15.5) % Plt Count (150-450) k/uL MPV Neutrophils % % Lymphocytes % % Monocytes % % Eosinophils % % Basophils % % Neutrophils # (1.3-7.7) k/uL Lymphocytes # (1.0-4.8) k/uL Monocytes # (0-1.0) k/uL Eosinophils # (0-0.7) k/uL Basophils # (0-0.2) k/uL Sodium (137-145) mmol/L Potassium (3.5-5.1) mmol/L Chloride (98-107) mmol/L Carbon Dioxide (22-30) mmol/L Anion Gap mmol/L BUN (7-17) mg/dL Creatinine (0.52-1.04) mg/dL Est GFR (CKD-EPI)AfAm (>60 ml/min/1.73 sqM) Est GFR (CKD-EPI)NonAf (>60 ml/min/1.73 sqM) Glucose (74-99) mg/dL Plasma Lactic Acid Reg 1.6 (0.7-2.0) mmol/L Calcium (8.4-10.2) mg/dL Total Bilirubin (0.2-1.3) mg/dL AST (14-36) U/L ALT (4-34) U/L Alkaline Phosphatase (38-126) U/L Total Protein (6.3-8.2) g/dL Albumin (3.5-5.0) g/dL Amylase (30-110) U/L Lipase (23-300) U/L Urine Color Urine Appearance (Clear) Urine pH (5.0-8.0) Ur Specific [place] (1.001-1.035) Urine Protein (Negative) Urine Glucose (UA) (Negative) Urine Ketones (Negative) Urine Blood (Negative) Urine Nitrite (Negative) Urine Bilirubin (Negative) Urine Urobilinogen (<2.0) mg/dL Ur Leukocyte Esterase (Negative) Urine RBC (0-5) /hpf Urine WBC (0-5) /hpf Ur Squamous Epith Cells (0-4) /hpf Urine Bacteria (None) /hpf Urine Mucus (None) /hpf - EKG Data -: EKG Interpreted by Me EKG Comments: EKG performed at 6:48 sinus bradycardia with sinus arrhythmia rate of 57 PA 156 QRS 86 QTC is QTC 420/[address] elevation or depression normal axis. Disposition Clinical Impression: Enteritis Disposition: HOME SELF-CARE Condition: Stable Instructions (If sedation given, give patient instructions): Enteritis (ED) Additional Instructions: Please return to the Emergency Department if symptoms worsen or any other concerns. Prescriptions: Dicyclomine [Bentyl] 20 mg PO TID #30 tablet Ondansetron Odt [Zofran Odt] 4 mg PO Q8HR PRN #10 tab PRN Reason: Nausea Is patient prescribed a controlled substance at d/c from ED?: No Referrals: Freddy Hernandez MD [Primary Care Provider] - 1-2 days Time of Disposition: 09:59
[2021-02-04 07:10] LABS: Basophils % (A) 0 %; Eosinophils # (A) 0.1 k/uL (0-0.7); Eosinophils % (A) 0 %; HCT 44.7 % (34.0-46.0); HGB 15.4 gm/dL (11.4-16.0); Lymphocytes # (A) 1.5 k/uL (1.0-4.8); Lymphocytes % (A) 13 %; MCHC 34.4 g/dL (31.0-37.0); MCV 87.2 fL (80.0-100.0); Mean Platelet Volume 7.8; Monocytes # (A) 0.3 k/uL (0-1.0); Monocytes % (A) 3 %; Neutrophils # (A) 9.5 k/uL (1.3-7.7); Neutrophils % (A) 83 %; Platelet Count 337 k/uL (150-450); RBC 5.13 m/uL (3.80-5.40); RDW 12.7 % (11.5-15.5); WBC 11.4 k/uL (3.8-10.6)
[2021-02-04 07:19] LABS: ALT 14 U/L (4-34); AST 25 U/L (14-36); African American GFR (CKD) >90 (>60 ml/min/1.73 sqM); Albumin 4.7 g/dL (3.5-5.0); Alkaline Phosphatase 74 U/L (38-126); Amylase 53 U/L (30-110); Anion Gap 12 mmol/L; Blood Urea Nitrogen 10 mg/dL (7-17); Calcium 10.3 mg/dL (8.4-10.2); Carbon Dioxide 23 mmol/L (22-30); Chloride 104 mmol/L (98-107); Glucose 197 mg/dL (74-99); Lipase 41 U/L (23-300); Non-African American GFR(CKD) >90 (>60 ml/min/1.73 sqM); Potassium 3.8 mmol/L (3.5-5.1); Sodium 139 mmol/L (137-145); Total Bilirubin 0.8 mg/dL (0.2-1.3); Total Protein 8.3 g/dL (6.3-8.2)
[2021-02-04] MEDS ORDERED: HYDROmorphone 1 MG/ML 1 ML SYRINGE IVP STA (07:34)
[2021-02-04] MEDS ORDERED: MAG HYDROX/AL HYDROX/SIMETH 30 ML, HYOSCYAMINE ELIXIR 10 ML, LIDOCAINE VISCOUS 2% 10 ML PO STA ×3 (07:34)
[2021-02-04] MEDS ORDERED: KETOROLAC 15 MG/ML 1 ML VIAL IVP STA ×2 (07:34→09:24)
--- NOTE | 2021-02-04 08:44 | CT ---
EXAMINATION TYPE: CT abdomen pelvis w con DATE OF EXAM: 02/04/2021 COMPARISON: 04/20/2017 HISTORY: Abdominal pain, nausea, vomiting CT DLP: 1388.7 mGycm CONTRAST: CT scan of the abdomen and pelvis is performed without Oral Contrast and with IV Contrast, patient in jected with 100 mL of Isovue 300. FINDINGS: LUNG BASES-: No visible nodule. No infiltrate. LIVER/GB: No calcified gallstones. Renal cystic lesions noted. Biliary tree is of normal caliber. PANCREAS: No inflammation. No distinct mass. SPLEEN: No splenic enlargement. No lesion seen. ADRENALS: No nodule. No thickening. KIDNEYS/BLADDER: No hydronephrosis. No nephrolithiasis. No distinct renal mass. Urinary bladder g rossly unremarkable. BOWEL: Normal appendix. Mild distention proximal jejunal loops mild wall thickening may reflect ente ritis. Correlate clinically. GENITAL ORGANS: No gross abnormality. LYMPH NODES: No greater than 1cm abdominal or pelvic lymph nodes are appreciated. AORTA: No significant abnormality. OSSEOUS STRUCTURES: No significant abnormality is seen. OTHER: No significant additional abnormality is seen. IMPRESSION: 1. Mild distention proximal jejunal loops mild wall thickening may reflect enteritis. Correlate clini josey.
[2021-02-04] MEDS ORDERED: DICYCLOMINE 10 MG/ML 2 ML AMP IM STA (09:24)
[2021-02-04 09:26] LABS: Appearance,Urine Clear (Clear); Bacteria,Urine Rare /hpf; Bilirubin,Urine Negative (Negative); Blood,Urine Trace (Negative); Color,Urine Yellow; Glucose,Urine (UA) Trace (Negative); Ketones,Urine 2+ (Negative); Leukocyte Esterase,Urine Negative (Negative); Mucus,Urine Occasional /hpf; Nitrite,Urine Negative (Negative); PH, Urine 7.5 (5.0-8.0); Protein,Urine 2+ (Negative); RBC,Urine 11 /hpf (0-5); Specific Gravity,Urine 1.018 (1.001-1.035); Squamous Epithelial Cell,Urine 1 /hpf (0-4); Urobilinogen,Urine <2.0 mg/dL (<2.0); WBC,Urine 1 /hpf (0-5)
[2021-02-04 10:17] VITALS: BP 175/110; PULSE 60; RESP 16; TEMP 98.3
== END 2021-02-04 10:16 | disposition home or self-care (01) ==
LOC: EC 06:27
DX: K52.9 Noninfective gastroenteritis and colitis, unspecified (principal); I10 Essential (primary) hypertension; Z87.891 Personal history of nicotine dependence; Z88.5 Allergy status to narcotic agent
CPT/HCPCS: 36415; 93005; 80053; 82150; 83605; 83690; 85025; 81001; 74177; 99284; 96374; 96375; 96376; 96361; 96372; J0500; J2765; J1170 ×2; J1885; Q9967

== ENCOUNTER 2021-02-11 12:17 | Emergency (ER) | payer MEDICARE, OTHER ==
[2021-02-11 12:33] VITALS: RESP 18; TEMP 97.9
[2021-02-11] MEDS ORDERED: HYDROmorphone 1 MG/ML 1 ML SYRINGE IVP STA ×2 (12:41→14:28)
[2021-02-11] MEDS ORDERED: SODIUM CHLORIDE 0.9% 1,000 ML IV STA (12:41)
[2021-02-11 13:10] LABS: Basophils % (A) 1 %; Eosinophils # (A) 0.1 k/uL (0-0.7); Eosinophils % (A) 2 %; HCT 38.2 % (34.0-46.0); HGB 12.9 gm/dL (11.4-16.0); Lymphocytes # (A) 2.7 k/uL (1.0-4.8); Lymphocytes % (A) 32 %; MCH 30.5 pg (25.0-35.0); MCHC 33.8 g/dL (31.0-37.0); MCV 90.2 fL (80.0-100.0); Mean Platelet Volume 7.8; Monocytes # (A) 0.4 k/uL (0-1.0); Monocytes % (A) 4 %; Neutrophils % (A) 60 %; Platelet Count 225 k/uL (150-450); RBC 4.23 m/uL (3.80-5.40); RDW 12.9 % (11.5-15.5); WBC 8.4 k/uL (3.8-10.6)
--- NOTE | 2021-02-11 13:35 | XR ---
EXAMINATION TYPE: XR KUB DATE OF EXAM: 02/11/2021 1:17 PM CLINICAL HISTORY: Right-sided pain for 2 weeks. TECHNIQUE: Two Upright KUB images of the abdomen are obtained. COMPARISON: CT abdomen and pelvis one week ago. FINDINGS: Scattered gas is seen in non-distended small and large bowel loops in the lower abdomen and pelvis. Air-fluid level in nondistended stomach. Prominent right hepatic lobe redemonstrated. No gris picious calcifications. No free air. The lung bases are clear and the osseous structures are intact. IMPRESSION: Overall nonobstructive bowel gas pattern redemonstrated.
[2021-02-11 13:42] LABS: Potassium 4.1 mmol/L (3.5-5.1)
[2021-02-11 13:44] LABS: Partial Thromboplastin Time 22.1 sec (22.0-30.0); Prothrombin Time 10.5 sec (9.0-12.0)
[2021-02-11 13:45] LABS: ALT 10 U/L (4-34); AST 18 U/L (14-36); African American GFR (CKD) >90 (>60 ml/min/1.73 sqM); Albumin 3.5 g/dL (3.5-5.0); Alkaline Phosphatase 46 U/L (38-126); Anion Gap 5 mmol/L; Blood Urea Nitrogen 16 mg/dL (7-17); Calcium 9.1 mg/dL (8.4-10.2); Carbon Dioxide 25 mmol/L (22-30); Chloride 108 mmol/L (98-107); Glucose 112 mg/dL (74-99); Lipase 233 U/L (23-300); Non-African American GFR(CKD) >90 (>60 ml/min/1.73 sqM); Sodium 138 mmol/L (137-145); Total Bilirubin 0.2 mg/dL (0.2-1.3); Total Protein 6.4 g/dL (6.3-8.2)
[2021-02-11 13:48] LABS: Appearance,Urine Clear (Clear); Bilirubin,Urine Negative (Negative); Blood,Urine Negative (Negative); Color,Urine Colorless; Glucose,Urine (UA) Negative (Negative); Ketones,Urine Negative (Negative); Leukocyte Esterase,Urine Negative (Negative); Nitrite,Urine Negative (Negative); Protein,Urine Negative (Negative); Specific Gravity,Urine 1.007 (1.001-1.035); Urobilinogen,Urine <2.0 mg/dL (<2.0)
--- NOTE | 2021-02-11 15:01 | US ---
EXAMINATION TYPE: US renals and bladder DATE OF EXAM: 02/11/2021 COMPARISON: CT dated 02/04/2021 CLINICAL HISTORY: right flank pain. EC patient with right flank and back pain which started as right abdominal pain; symptoms x 2 weeks; nausea and vomiting, fever yesterday. EXAM MEASUREMENTS: Patient was scanned prone and upright due to severe pain. Right Kidney: 12.9 x 5.2 x 5.4 cm Left Kidney: 11.0 x 4.9 x 5.6 cm Post Void Residual Volume: not assessed on EC patient Right Kidney: No hydronephrosis or masses seen Left Kidney: No hydronephrosis or masses seen Bladder: wnl Bilateral Jets seen: yes There is no evidence for hydronephrosis at this point in time. No nephrolithiasis is seen. No harry s are identified. Cortical medullary differentiation is maintained. The urinary bladder is anechoic. Bilateral ureteral jets are seen. IMPRESSION: Normal kidneys. No evident hydronephrosis.
--- NOTE | 2021-02-11 15:38 | ED ---
Abdominal Pain HPI - General Chief Complaint: Abdominal Pain Stated Complaint: Flank Pain Time Seen by Provider: 02/11/21 12:25 Source: patient, EMS Mode of arrival: EMS Limitations: language barrier - History of Present Illness Initial Comments: Patient is a 60-year-old female presents emergency room with reported right- sided flank pain. Patient states that the symptoms have been present for the past several weeks. She was seen in the emergency department for this complaint on February 04. She does CT done at that time which was unremarkable. She states that she has been taking her home medication of [place] however it hasn't helped her symptoms. She reports to the nausea and vomiting. States she has been unable to hold down any food or drink. She denies any changes in her urination to include dysuria, hematuria or difficulty voiding. Denies any changes in her bowel movements. No vaginal bleeding or discharge. No previous abdominal surgeries. No fevers, chills, cough or chest pain. No alleviating, precipitating or modifying factors - Related Data Home Medications Medication Instructions Recorded Confirmed ALPRAZolam [Xanax] 2 mg PO HS 12/20/19 02/11/21 HYDROcodone/APAP 10-325MG [[place] 1 tab PO QID 12/20/19 02/11/21 10-325] Ondansetron [Zofran] 4 mg PO DAILY PRN 02/11/21 02/11/21 Previous Rx's Medication Instructions Recorded Dicyclomine [Bentyl] 20 mg PO TID #30 tablet 02/04/21 Ondansetron Odt [Zofran Odt] 4 mg PO Q8HR PRN #10 tab 02/04/21 Allergies Allergy/AdvReac Type Severity Reaction Status Date / Time morphine AdvReac Hallucinati Verified 02/14/21 14:29 ons Review of Systems ROS Statement: Those systems with pertinent positive or pertinent negative responses have been documented in the HPI. ROS Other: All systems not noted in ROS Statement are negative. 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 Date of last positivie culture/infection: 03/01/20 MDRO Source:: Left Axilla Additional Past Surgical History / Comment(s): facial reconstructive, Past Anesthesia/Blood Transfusion Reactions: No Reported Reaction Past Psychological History: Anxiety, Depression Smoking Status: Former smoker Past Alcohol Use History: None Reported Past Drug Use History: Marijuana - Past Family History Mother Family Medical History: No Reported History Father Family Medical History: Hypertension General Exam Limitations: language barrier General appearance: alert, in no apparent distress Head exam: Present: atraumatic, normocephalic, normal inspection Eye exam: Present: normal appearance, PERRL, EOMI. Absent: scleral icterus, conjunctival injection, periorbital swelling ENT exam: Present: normal exam, mucous membranes moist Neck exam: Present: normal inspection. Absent: tenderness, meningismus, lymphadenopathy Respiratory exam: Present: normal lung sounds bilaterally. Absent: respiratory distress, wheezes, rales, rhonchi, stridor Cardiovascular Exam: Present: regular rate, normal rhythm, normal heart sounds. Absent: systolic murmur, diastolic murmur, rubs, gallop, clicks GI/Abdominal exam: Present: soft, normal bowel sounds. Absent: distended, tenderness, guarding, rebound, rigid Extremities exam: Present: normal inspection, full ROM, normal capillary refill. Absent: tenderness, pedal edema, joint swelling, calf tenderness Back exam: Present: normal inspection, CVA tenderness (R) Neurological exam: Present: alert, oriented X3, CN II-XII intact Psychiatric exam: Present: normal affect, normal mood Skin exam: Present: warm, dry, intact, normal color. Absent: rash Course Vital Signs 02/11/21 02/11/21 02/11/21 12:25 12:33 13:33 Temperature 97.9 F Pulse Rate 66 Respiratory 18 18 18 Rate Blood Pressure 138/90 O2 Sat by Pulse 99 Oximetry 02/11/21 02/11/21 02/11/21 14:33 15:33 15:49 Temperature 97.9 F Pulse Rate 69 Respiratory 18 18 18 Rate Blood Pressure 124/78 O2 Sat by Pulse 99 Oximetry Medical Decision Making - Medical Decision Making Upon arrival patient was placed into room 26. Thorough history and physical exam was performed. IV is established. Patient is requesting Dilaudid by name stating that it is the only pain medication that works for her. She was given 1 mg. EMS had provided her with 4 mg of Zofran. Laboratory studies were conducted. Patient is found eating a food tray in her room 20 minutes after arrival. I requested that the patient not eat anything until her workup is complete however she states that her symptoms are gone after the dilaudid and zofran. Food is removed pending results of ultrasound. US tech attempts to perform the study however the patient starts screaming, demanding more pain medications before ultrasound is completed. She is provided a second dose so we may obtain ultrasound. Laboratory studies are reviewed and are within normal limits. I do inform the patient of these results. Renal ultrasound and KUB are unremarkable. I did discuss results with the patient. Patient will be d ischarged home to follow with her primary care physician. Recommended that she have further testing including an EGD, colonoscopy and possibly HIDA scan/gallbladder us. Patient agreed to this. She has any new or worsening symptoms she is to return to the emergency room. Patient was discharged home in stable condition - Lab Data Result diagrams: 02/11/21 12:58 02/11/21 12:58 Lab Results 02/11/21 02/11/21 02/11/21 Range/Units 12:58 12:58 12:58 WBC 8.4 (3.8-10.6) k/uL RBC 4.23 (3.80-5.40) m/uL Hgb 12.9 (11.4-16.0) gm/dL Hct 38.2 (34.0-46.0) % MCV 90.2 (80.0-100.0) fL MCH 30.5 (25.0-35.0) pg MCHC 33.8 (31.0-37.0) g/dL RDW 12.9 (11.5-15.5) % Plt Count 225 (150-450) k/uL MPV 7.8 Neutrophils % 60 % Lymphocytes % 32 % Monocytes % 4 % Eosinophils % 2 % Basophils % 1 % Neutrophils # 5.0 (1.3-7.7) k/uL Lymphocytes # 2.7 (1.0-4.8) k/uL Monocytes # 0.4 (0-1.0) k/uL Eosinophils # 0.1 (0-0.7) k/uL Basophils # 0.0 (0-0.2) k/uL PT (9.0-12.0) sec INR (<1.2) APTT (22.0-30.0) sec Sodium 138 (137-145) mmol/L Potassium 4.1 (3.5-5.1) mmol/L Chloride 108 H (98-107) mmol/L Carbon Dioxide 25 (22-30) mmol/L Anion Gap 5 mmol/L BUN 16 (7-17) mg/dL Creatinine 0.54 (0.52-1.04) mg/dL Est GFR (CKD-EPI)AfAm >90 (>60 ml/min/1.73 sqM) Est GFR (CKD-EPI)NonAf >90 (>60 ml/min/1.73 sqM) Glucose 112 H (74-99) mg/dL Plasma Lactic Acid Reg (0.7-2.0) mmol/L Calcium 9.1 (8.4-10.2) mg/dL Total Bilirubin 0.2 (0.2-1.3) mg/dL AST 18 (14-36) U/L ALT 10 (4-34) U/L Alkaline Phosphatase 46 (38-126) U/L Total Protein 6.4 (6.3-8.2) g/dL Albumin 3.5 (3.5-5.0) g/dL Lipase 233 (23-300) U/L Urine Color Colorless Urine Appearance Clear (Clear) Urine pH 6.0 (5.0-8.0) Ur Specific [place] 1.007 (1.001-1.035) Urine Protein Negative (Negative) Urine Glucose (UA) Negative (Negative) Urine Ketones Negative (Negative) Urine Blood Negative (Negative) Urine Nitrite Negative (Negative) Urine Bilirubin Negative (Negative) Urine Urobilinogen <2.0 (<2.0) mg/dL Ur Leukocyte Esterase Negative (Negative) 02/11/21 02/11/21 Range/Units 12:58 12:58 WBC (3.8-10.6) k/uL RBC (3.80-5.40) m/uL Hgb (11.4-16.0) gm/dL Hct (34.0-46.0) % MCV (80.0-100.0) fL MCH (25.0-35.0) pg MCHC (31.0-37.0) g/dL RDW (11.5-15.5) % Plt Count (150-450) k/uL MPV Neutrophils % % Lymphocytes % % Monocytes % % Eosinophils % % Basophils % % Neutrophils # (1.3-7.7) k/uL Lymphocytes # (1.0-4.8) k/uL Monocytes # (0-1.0) k/uL Eosinophils # (0-0.7) k/uL Basophils # (0-0.2) k/uL PT 10.5 (9.0-12.0) sec INR 1.0 (<1.2) APTT 22.1 (22.0-30.0) sec Sodium (137-145) mmol/L Potassium (3.5-5.1) mmol/L Chloride (98-107) mmol/L Carbon Dioxide (22-30) mmol/L Anion Gap mmol/L BUN (7-17) mg/dL Creatinine (0.52-1.04) mg/dL Est GFR (CKD-EPI)AfAm (>60 ml/min/1.73 sqM) Est GFR (CKD-EPI)NonAf (>60 ml/min/1.73 sqM) Glucose (74-99) mg/dL Plasma Lactic Acid Reg 1.0 (0.7-2.0) mmol/L Calcium (8.4-10.2) mg/dL Total Bilirubin (0.2-1.3) mg/dL AST (14-36) U/L ALT (4-34) U/L Alkaline Phosphatase (38-126) U/L Total Protein (6.3-8.2) g/dL Albumin (3.5-5.0) g/dL Lipase (23-300) U/L Urine Color Urine Appearance (Clear) Urine pH (5.0-8.0) Ur Specific [place] (1.001-1.035) Urine Protein (Negative) Urine Glucose (UA) (Negative) Urine Ketones (Negative) Urine Blood (Negative) Urine Nitrite (Negative) Urine Bilirubin (Negative) Urine Urobilinogen (<2.0) mg/dL Ur Leukocyte Esterase (Negative) Disposition Clinical Impression: Right flank pain Disposition: HOME SELF-CARE Condition: Stable Instructions (If sedation given, give patient instructions): Flank Pain (ED) Additional Instructions: Please follow up with the primary care doctor within 2-4 days. You may need an EGD and colonoscopy. Return to the ED for any new or worsening symptoms. Is patient prescribed a controlled substance at d/c from ED?: No Referrals: Freddy Hernandez MD [Primary Care Provider] - 1-2 days Jaelyn Delacruz MD [STAFF PHYSICIAN] - 1-2 days Time of Disposition: 15:38
[2021-02-11 15:49] VITALS: BP 124/78; PULSE 69
== END 2021-02-11 15:49 | disposition home or self-care (01) ==
LOC: EC 12:17
DX: R10.9 Unspecified abdominal pain (principal); R11.2 Nausea with vomiting, unspecified; I10 Essential (primary) hypertension; Z87.891 Personal history of nicotine dependence; Z86.73 Personal history of transient ischemic attack (TIA), and cerebral infarction without residual deficits; Z88.5 Allergy status to narcotic agent
CPT/HCPCS: 36415; 80053; 83605; 83690; 85025; 85610; 85730; 81003; 74018; 76770; 99285; 96374; 96376; 96361; J1170

== ENCOUNTER 2021-02-14 13:33 | Emergency (ER) | payer MEDICARE, OTHER ==
[2021-02-14 14:30] VITALS: BP 90/40; PULSE 70; RESP 20; TEMP 98.8
[2021-02-14 14:48] LABS: Appearance,Urine Clear (Clear); Bilirubin,Urine Negative (Negative); Blood,Urine Negative (Negative); Color,Urine Colorless; Glucose,Urine (UA) Negative (Negative); Ketones,Urine Negative (Negative); Leukocyte Esterase,Urine Negative (Negative); Nitrite,Urine Negative (Negative); PH, Urine 6.5 (5.0-8.0); Protein,Urine Negative (Negative); Specific Gravity,Urine 1.003 (1.001-1.035); Urobilinogen,Urine <2.0 mg/dL (<2.0)
== END 2021-02-14 17:57 | disposition left against medical advice (07) ==
LOC: EC 13:33
DX: R10.9 Unspecified abdominal pain (principal); R11.2 Nausea with vomiting, unspecified
CPT/HCPCS: 81003; 99499

== ENCOUNTER → 2021-05-29 | Outpatient (CLI) | payer MEDICARE | END | disposition home or self-care (01) | LOC: LABPAT 13:24 | PROVIDERS: ATTEND Orthopaedic Surgery | DX: Z01.812 Encounter for preprocedural laboratory examination (principal); M16.11 Unilateral primary osteoarthritis, right hip | CPT/HCPCS: 87070 ==

== ENCOUNTER 2021-06-07 23:01 | Observation (INO) | payer MEDICARE ==
[2021-06-07] MEDS ORDERED: SODIUM CHLORIDE 0.9% 1,000 ML IV STA (23:08)
[2021-06-07] MEDS ORDERED: HYDROmorphone 1 MG/ML 1 ML SYRINGE IVP STA (23:09)
--- NOTE | 2021-06-07 23:10 | ED ---
Recheck HPI - General Stated Complaint: Hip Pain Time Seen by Provider: 06/07/21 23:05 - Related Data Home Medications Medication Instructions Recorded Confirmed ALPRAZolam [Xanax] 2 mg PO BID PRN 12/20/19 05/29/21 HYDROcodone/APAP 10-325MG [[place] 1 tab PO QID PRN 12/20/19 05/29/21 10-325] Aspirin [Adult Low Dose Aspirin EC] 81 mg PO DAILY 05/29/21 05/29/21 Ergocalciferol [Vitamin D2 (1250 1,250 mcg PO WEEKLY 05/29/21 05/29/21 Mcg = 47432 Iu)] Previous Rx's Medication Instructions Recorded Aspirin [Adult Low Dose Aspirin EC] 81 mg PO BID #60 tab 06/04/21 cefaDROXiL [Duricef] 500 mg PO Q12HR #14 cap 06/04/21 oxyCODONE-APAP 5-325MG [Percocet 1 tab PO Q6HR PRN #28 tab 06/04/21 5-325 mg] Allergies Allergy/AdvReac Type Severity Reaction Status Date / Time fentanyl Allergy Anaphylaxis Verified 05/29/21 09:13 oxycodone [From OxyContin] Allergy Anaphylaxis Verified 05/29/21 09:13 morphine AdvReac Hallucinati Verified 05/29/21 08:57 ons Review of Systems ROS Statement: Those systems with pertinent positive or pertinent negative responses have been documented in the HPI. ROS Other: All systems not noted in ROS Statement are negative. 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 Smoking Status: Former smoker Past Alcohol Use History: None Reported Additional Past Alcohol Use History / Comment(s): patient quit smoking cigar ettes two months ago. smokes marijuana every few days. Past Drug Use History: Marijuana Additional Drug Use History / Comment(s): Smokes or uses edibles occasionally - Past Family History Mother Family Medical History: No Reported History Father Family Medical History: Hypertension Additional Family Medical History / Comment(s): alcoholic General Exam General appearance: alert, in no apparent distress Head exam: Present: atraumatic, normocephalic, normal inspection Eye exam: Present: normal appearance, PERRL, EOMI. Absent: scleral icterus, c onjunctival injection, periorbital swelling ENT exam: Present: normal exam, mucous membranes moist Neck exam: Present: normal inspection. Absent: tenderness, meningismus, lymphadenopathy Respiratory exam: Present: normal lung sounds bilaterally. Absent: respiratory distress, wheezes, rales, rhonchi, stridor Cardiovascular Exam: Present: regular rate, normal rhythm, normal heart sounds. Absent: systolic murmur, diastolic murmur, rubs, gallop, clicks GI/Abdominal exam: Present: soft, normal bowel sounds. Absent: distended, tenderness, guarding, rebound, rigid Extremities exam: Present: normal inspection, full ROM, normal capillary refill. Absent: tenderness, pedal edema, joint swelling, calf tenderness Back exam: Present: normal inspection Neurological exam: Present: alert, oriented X3, CN II-XII intact Psychiatric exam: Present: normal affect, normal mood Skin exam: Present: warm, dry, intact, normal color. Absent: rash Course Vital Signs 06/07/21 23:09 Temperature 97.5 F L Pulse Rate 77 Respiratory 16 Rate Blood Pressure 123/83 O2 Sat by Pulse 97 Oximetry Medical Decision Making - Lab Data Result diagrams: 06/07/21 23:59 06/07/21 23:58 Lab Results 06/07/21 06/07/21 06/07/21 Range/Units 23:58 23:58 23:59 WBC 7.6 (3.8-10.6) k/uL RBC 3.72 L (3.80-5.40) m/uL Hgb 11.1 L D (11.4-16.0) gm/dL Hct 34.1 (34.0-46.0) % MCV 91.8 (80.0-100.0) fL MCH 29.7 (25.0-35.0) pg MCHC 32.4 (31.0-37.0) g/dL RDW 13.0 (11.5-15.5) % Plt Count 358 (150-450) k/uL MPV 7.1 Neutrophils % 72 % Lymphocytes % 21 % Monocytes % 4 % Eosinophils % 2 % Basophils % 0 % Neutrophils # 5.4 (1.3-7.7) k/uL Lymphocytes # 1.6 (1.0-4.8) k/uL Monocytes # 0.3 (0-1.0) k/uL Eosinophils # 0.1 (0-0.7) k/uL Basophils # 0.0 (0-0.2) k/uL PT 9.9 (9.0-12.0) sec INR 0.9 (<1.2) APTT 22.4 (22.0-30.0) sec Sodium 138 (137-145) mmol/L Potassium 3.6 (3.5-5.1) mmol/L Chloride 104 (98-107) mmol/L Carbon Dioxide 30 (22-30) mmol/L Anion Gap 4 mmol/L BUN 11 (7-17) mg/dL Creatinine 0.58 (0.52-1.04) mg/dL Est GFR (CKD-EPI)AfAm >90 (>60 ml/min/1.73 sqM) Est GFR (CKD-EPI)NonAf >90 (>60 ml/min/1.73 sqM) Glucose 123 H (74-99) mg/dL Calcium 9.3 (8.4-10.2) mg/dL Phosphorus 4.0 (2.5-4.5) mg/dL Magnesium 1.9 (1.6-2.3) mg/dL Total Bilirubin 0.5 (0.2-1.3) mg/dL AST 28 (14-36) U/L ALT 16 (4-34) U/L Alkaline Phosphatase 51 (38-126) U/L Total Protein 6.6 (6.3-8.2) g/dL Albumin 3.6 (3.5-5.0) g/dL - EKG Data -: EKG Interpreted by Me (EKG is sinus rhythm 71 NC 164 QRS 78 QTc 441) Disposition Clinical Impression: S/P total right hip arthroplasty, Osteoarthritis of right hip, Postoperative pain Disposition: ADMITTED IP TO THIS HOSP Condition: Good Is patient prescribed a controlled substance at d/c from ED?: No
--- NOTE | 2021-06-07 23:45 | XR ---
EXAMINATION TYPE: XR chest 2V DATE OF EXAM: 06/07/2021 COMPARISON: 05/14/2021 HISTORY: Pain. TECHNIQUE: 2 views FINDINGS: Heart is normal. Lungs are clear of infiltrate. There is no heart failure. There are no hil ar masses. Bony thorax is intact. IMPRESSION: No active cardiopulmonary disease. Normal heart. No change.
--- NOTE | 2021-06-07 23:47 | XR ---
EXAMINATION TYPE: XR Hip Complete RT DATE OF EXAM: 06/07/2021 COMPARISON: NONE HISTORY: Hip pain TECHNIQUE: 2 views FINDINGS: There is right hip prosthesis. Components are in anatomic position. There is no evidence of a fracture. Sacroiliac joint appears intact IMPRESSION: Negative exam. No fracture.
[2021-06-08 00:08] LABS: Basophils % (A) 0 %; Eosinophils # (A) 0.1 k/uL (0-0.7); Eosinophils % (A) 2 %; HCT 34.1 % (34.0-46.0); Lymphocytes # (A) 1.6 k/uL (1.0-4.8); Lymphocytes % (A) 21 %; MCH 29.7 pg (25.0-35.0); MCHC 32.4 g/dL (31.0-37.0); MCV 91.8 fL (80.0-100.0); Mean Platelet Volume 7.1; Monocytes # (A) 0.3 k/uL (0-1.0); Monocytes % (A) 4 %; Neutrophils # (A) 5.4 k/uL (1.3-7.7); Neutrophils % (A) 72 %; Platelet Count 358 k/uL (150-450); RBC 3.72 m/uL (3.80-5.40); WBC 7.6 k/uL (3.8-10.6)
[2021-06-08 00:17] LABS: ALT 16 U/L (4-34); AST 28 U/L (14-36); African American GFR (CKD) >90 (>60 ml/min/1.73 sqM); Albumin 3.6 g/dL (3.5-5.0); Alkaline Phosphatase 51 U/L (38-126); Anion Gap 4 mmol/L; Blood Urea Nitrogen 11 mg/dL (7-17); Calcium 9.3 mg/dL (8.4-10.2); Carbon Dioxide 30 mmol/L (22-30); Chloride 104 mmol/L (98-107); Glucose 123 mg/dL (74-99); Magnesium 1.9 mg/dL (1.6-2.3); Non-African American GFR(CKD) >90 (>60 ml/min/1.73 sqM); Potassium 3.6 mmol/L (3.5-5.1); Sodium 138 mmol/L (137-145); Total Bilirubin 0.5 mg/dL (0.2-1.3); Total Protein 6.6 g/dL (6.3-8.2)
[2021-06-08 00:22] LABS: HGB 11.1 gm/dL (11.4-16.0)
[2021-06-08 00:23] LABS: INR 0.9 (<1.2); Partial Thromboplastin Time 22.4 sec (22.0-30.0); Prothrombin Time 9.9 sec (9.0-12.0)
[2021-06-08] MEDS ORDERED: HYDROmorphone 1 MG/ML 1 ML SYRINGE IVP PRN (00:37)
[2021-06-08] MEDS ORDERED: LORazepam 2 MG/ML INJ IV PRN (00:37)
[2021-06-08] MEDS ORDERED: NALOXONE 0.4 MG/ML 1 ML VIAL IV PRN (00:37)
[2021-06-08] MEDS ORDERED: ONDANSETRON 4 MG/2 ML VIAL IVP PRN (00:37)
[2021-06-08] MEDS: SODIUM CHLORIDE 0.9% 1,000 ML IV SCH ×2 (02:00→10:35)
[2021-06-08 08:29] VITALS: BP 122/80; PULSE 74; RESP 18; TEMP 97.5
[2021-06-08] MEDS ORDERED: oxyCODONE-APAP 5-325MG 1 EACH TAB PO PRN (10:04)
--- NOTE | 2021-06-08 10:18 | P.CNOR ---
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 Smoking Status: Unknown if ever smoked Past Alcohol Use History: None Reported Additional Past Alcohol Use History / Comment(s): patient quit smoking cigarettes two months ago. smokes marijuana every few days. Past Drug Use History: Marijuana Additional Drug Use History / Comment(s): Smokes or uses edibles occasionally - Past Family History Mother Family Medical History: No Reported History Father Family Medical History: Hypertension Additional Family Medical History / Comment(s): alcoholic Medications and Allergies Home Medications Medication Instructions Recorded Confirmed Type ALPRAZolam [Xanax] 2 mg PO BID PRN 12/20/19 06/08/21 History HYDROcodone/APAP 10-325MG [[place] 1 tab PO QID PRN 12/20/19 06/08/21 History 10-325] Ergocalciferol [Vitamin D2 (1250 1,250 mcg PO Q7D 05/29/21 06/08/21 History Mcg = 42632 Iu)] Aspirin [Adult Low Dose Aspirin EC] 81 mg PO BID #60 tab 06/04/21 06/08/21 Rx cefaDROXiL [Duricef] 500 mg PO Q12HR #14 cap 06/04/21 06/08/21 Rx Allergies Allergy/AdvReac Type Severity Reaction Status Date / Time fentanyl Allergy Anaphylaxis Verified 06/08/21 07:16 oxycodone [From OxyContin] Allergy Anaphylaxis Verified 06/08/21 07:16 morphine AdvReac Hallucinati Verified 06/08/21 07:16 ons Physical Examination Right lower extremity: Incision is healing well, no erythema or soft tissue swelling Mild discomfort with palpation on the anterior and lateral proximal thigh Range of motion, both passively and actively reproduce discomfort with hip flex ion and extension. Knee extension, knee flexion, plantar flexion, dorsiflexion, EHL, FHL are all intact, no pain is reproduced Compartments of the extremity, including anterior posterior soft and co mpressible Calf is soft, no tenderness with palpation Sensory exam to light touch is intact throughout the extremity, dorsalis pedis pulses 2+ Results - Labs Labs: Abnormal Lab Results - Last 24 Hours (Table) 06/07/21 06/07/21 Range/Units 23:58 23:59 RBC 3.72 L (3.80-5.40) m/uL Hgb 11.1 L D (11.4-16.0) gm/dL Glucose 123 H (74-99) mg/dL H & H 06/07/21 Range/Units 23:59 Hgb 11.1 L D (11.4-16.0) gm/dL Hct 34.1 (34.0-46.0) % Coagulation 06/07/21 Range/Units 23:58 INR 0.9 (<1.2) Result Diagrams: 06/07/21 23:59 06/07/21 23:58 - Diagnostic results Hip x-ray: report reviewed, image reviewed (Images demonstrate total hip arthroplasty components in good position and condition. Acute fractures or dislocations are appreciated) Assessment and Plan Assessment: Postoperative day #6 status post direct anterior right total hip arthroplasty Postoperative pain Multiple medical comorbidities Plan: I was able to discuss the case, including with physical exam findings and imag ing studies my attending Dr. Blue. No orthopedic surgical intervention recommended at this time. Had a very long discussion with the patient prior to discharge earlier in the week, she's been on high-dose narcotics for a long time. We attempted to prescribe a short course of Percocet 5 mg/325 mg. There were issues due to her pain contract with another provider. Had mentioned to her that she needed to reach out to that provider to discuss possibility of increasing her pain medication. We will attempt to contact Provider on 06/09/2021 to discuss further options for treatment. Right hip appears stable at this time, there are no signs of acute infection or abnormalities with components. GI and DVT prophylaxis, heparin 5000 units every 12 hours will be started PT/OT evaluation Weight-bear as tolerated with walker Discussed patient needs to be up and moving around. I also discussed with nursing to get the patient in the shower today. Other biomedical engineering professor recommendations We'll continue to follow during inpatient stay Time with Patient: Less than 30
[2021-06-08] MEDS ORDERED: DOCUSATE 100 MG CAP PO SCH (10:30)
[2021-06-08] MEDS ORDERED: HEPARIN SODIUM,PORCINE/PF 5,000 UNIT/0.5 ML SYRINGE SQ SCH (10:30)
--- NOTE | 2021-06-09 16:37 | DS ---
DISCHARGE SUMMARY CHIEF COMPLAINT: Intractable postoperative pain. HISTORY OF PRESENT ILLNESS AND PHYSICAL EXAMINATION: Details of this lady's history and physical can be found in the initial workup. LABORATORY STUDIES: While she was in the hospital she had laboratory studies, details of which can be found in the laboratory section of her chart. COURSE IN THE HOSPITAL: After admission she was placed on bedrest, started on intravenous fluids and analgesics. She apparently then signed herself out AGAINST MEDICAL ADVICE. She will be contacted at home and followed up through the office. FINAL DIAGNOSIS: 1. Intractable left postoperative SOLO pain. 2. Chronic obstructive pulmonary disease. 3. Hypertension. OPERATIONS: None. CONSULTATION: Orthopedics. She is improved. MMODL / IJN: [id number] /
--- NOTE | 2021-06-09 16:37 | HP ---
HISTORY AND PHYSICAL DATE OF ADMISSION: 06/08/2021 CHIEF COMPLAINT: Postoperative pain. HISTORY OF PRESENT ILLNESS: This is another admission for this 61-year-old white female. She was just in the hospital and underwent a left hip replacement. She apparently went home and started to have quite a bit more pain. She came back to the emergency room with intractable pain. She had no fever and there was no other obvious abnormality. It was determined that she would be admitted. REVIEW OF SYSTEMS: She denied any fever, chills, chest pain, abdominal pain, nausea, vomiting, bleeding, etc. Past medical history, family history, and personal and social histories are all otherwise unremarkable or unchanged. PHYSICAL EXAMINATION: Blood pressure 142/86 with a pulse of 83 and regular. Respirations were 20 and she was afebrile. In general she appeared to be well developed, well nourished, and in some discomfort. Skin color was normal. Skin was warm and dry and lymph nodes were not enlarged. Head, ears, eyes, nose, mouth and throat were normal. Chest was clear. The cardiac exam was normal. The abdomen was soft and nontender. Extremities were normal. Neurologically she is intact. She was admitted to the hospital with diagnosis: Postoperative left hip pain. PLAN: 1. Bedrest. 2. IV fluids. 3. Analgesics. 4. Orthopedic consult. RAMO / RANDA: [id number] /
== END 2021-06-08 12:20 | disposition left against medical advice (07) ==
LOC: EC 23:01 → 6NMEDSUR 06-08 00:37
PROVIDERS: ADMIT Family Medicine; ATTEND Family Medicine
DX: T84.84XA Pain due to internal orthopedic prosthetic devices, implants and grafts, initial encounter (principal); Y83.1 Surgical operation with implant of artificial internal device as the cause of abnormal reaction of the patient, or of later complication, without mention of misadventure at the time of the procedure; M16.11 Unilateral primary osteoarthritis, right hip; I10 Essential (primary) hypertension; J44.9 Chronic obstructive pulmonary disease, unspecified; Z20.822 Contact with and (suspected) exposure to COVID-19; Z53.29 Procedure and treatment not carried out because of patient's decision for other reasons; F41.9 Anxiety disorder, unspecified; H54.62 Unqualified visual loss, left eye, normal vision right eye; F32.A Depression, unspecified; Z79.82 Long term (current) use of aspirin; Z88.5 Allergy status to narcotic agent; Z86.14 Personal history of Methicillin resistant Staphylococcus aureus infection; Z96.643 Presence of artificial hip joint, bilateral; Z87.891 Personal history of nicotine dependence; Z86.73 Personal history of transient ischemic attack (TIA), and cerebral infarction without residual deficits; Z82.49 Family history of ischemic heart disease and other diseases of the circulatory system; Z81.1 Family history of alcohol abuse and dependence
CPT/HCPCS: 99285; 96374; 96376; 96372; 36415; 93005; 80053; 83735; 84100; 85025; 85610; 85730; 87040; 87635; 73502; 71046; G0378; J1170 ×2; J1644

== ENCOUNTER 2021-06-29 08:49 | Inpatient (IN) | payer MEDICARE ==
[2021-06-29] MEDS ORDERED: HYDROmorphone 1 MG/ML 1 ML SYRINGE IVP STA (08:58)
--- NOTE | 2021-06-29 09:15 | ED ---
General Adult HPI - General Chief complaint: Extremity Injury, Lower Stated complaint: Rt hip pain Time Seen by Provider: 06/29/21 08:50 Source: patient, RN notes reviewed, old records reviewed Mode of arrival: EMS Limitations: no limitations - History of Present Illness Initial comments: 61-year-old female presenting with right hip pain. Patient had gotten up to go to the [facility] this morning. She had developed some severe pain in her right hip and was having difficulty ambulating or bearing weight on this hip. She denies any fall. She had a hip replacement done about 4 weeks ago. She's had no fever. No chest pain or abdominal pain. No numbness or tingling to the right leg. - Related Data Home Medications Medication Instructions Recorded Confirmed ALPRAZolam [Xanax] 2 mg PO BID PRN 12/20/19 06/08/21 HYDROcodone/APAP 10-325MG [[place] 1 tab PO QID PRN 12/20/19 06/08/21 10-325] Ergocalciferol [Vitamin D2 (1250 1,250 mcg PO Q7D 05/29/21 06/08/21 Mcg = [id number] Iu)] Previous Rx's Medication Instructions Recorded Aspirin [Adult Low Dose Aspirin EC] 81 mg PO BID #60 tab 06/04/21 cefaDROXiL [Duricef] 500 mg PO Q12HR #14 cap 06/04/21 Allergies Allergy/AdvReac Type Severity Reaction Status Date / Time fentanyl Allergy Anaphylaxis Verified 06/08/21 07:16 oxycodone [From OxyContin] Allergy Anaphylaxis Verified 06/08/21 07:16 morphine AdvReac Hallucinati Verified 06/08/21 07:16 ons Review of Systems ROS Statement: Those systems with pertinent positive or pertinent negative responses have been documented in the HPI. ROS Other: All systems not noted in ROS Statement are negative. 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 Date of last positivie culture/infection: 03/01/20 MDRO Source:: Left Axilla Past Surgical History: Orthopedic Surgery Additional Past Surgical History / Comment(s): facial reconstructive, R hip replacement Past Anesthesia/Blood Transfusion Reactions: No Reported Reaction Past Psychological History: Anxiety, Depression Smoking Status: Current every day smoker Past Alcohol Use History: None Reported Past Drug Use History: Marijuana - Past Family History Mother Family Medical History: No Reported History Father Family Medical History: Hypertension Additional Family Medical History / Comment(s): alcoholic General Exam Limitations: no limitations General appearance: alert, in no apparent distress Head exam: Present: atraumatic, normocephalic Eye exam: Present: normal appearance, PERRL ENT exam: Present: normal exam Neck exam: Present: normal inspection. Absent: tenderness, meningismus Respiratory exam: Present: normal lung sounds bilaterally. Absent: respiratory distress, wheezes Cardiovascular Exam: Present: regular rate, normal rhythm GI/Abdominal exam: Present: soft. Absent: distended, tenderness, guarding Extremities exam: Present: other (Right leg held in partial flexion and internally rotated. Distal pulses are intact.). Absent: full ROM Neurological exam: Present: alert, oriented X3 Psychiatric exam: Present: normal affect, normal mood Skin exam: Present: warm, dry, intact. Absent: cyanosis, diaphoretic Course Vital Signs 06/29/21 06/29/21 06/29/21 08:51 09:50 09:55 Temperature 98.9 F Pulse Rate 72 82 79 Respiratory 20 18 18 Rate Blood Pressure 143/100 173/105 144/109 O2 Sat by Pulse 100 100 98 Oximetry 06/29/21 06/29/21 06/29/21 09:58 10:00 10:05 Temperature Pulse Rate 71 73 87 Respiratory 20 18 18 Rate Blood Pressure 173/105 113/88 152/115 O2 Sat by Pulse 96 98 97 Oximetry 06/29/21 06/29/21 10:10 10:13 Temperature Pulse Rate 85 76 Respiratory 18 18 Rate Blood Pressure 163/102 168/115 O2 Sat by Pulse 100 100 Oximetry Procedures - Procedural Sedation Procedural Sedation Start Time: 09:58 Procedural Sedation Stop Time: 10:30 Indications: fracture/dislocation reduction ASA Class: II Mallampati Airway Score: 2 Preparation: quality assurance monitor applied, pulse oximeter, capnometry used, supplemental O2 applied, suction/airway equipment at bedside, IV secured Ketamine: IV Ketamine Dose: 60 IV Propofol Dose (mgs): 190 Complications: none Interventions: oxygen applied Patient Tolerated Procedure: well Medical Decision Making - Medical Decision Making 61-year-old female who presents for evaluation of right hip pain. Patient does have a right hip dislocation on x-ray. I discussed the risks and benefits of sedation for reduction with the patient and she is agreeable. She does sign consent. She sedated with IV ketamine and propofol. Nursing staff as well as regulatory and compliance technician are at bedside. Its location reduction is unsuccessful in the emergency department. I did discuss case with Dr. Nagy who will admit for dislocation reduction Disposition Clinical Impression: Hip dislocation, right, S/P total right hip arthroplasty Disposition: ADMITTED IP TO THIS [facility] Condition: Stable Is patient prescribed a controlled substance at d/c from ED?: No Referrals: Freddy Hernandez MD [Primary Care Provider] - 1-2 days Decision to Admit Reason: Admit from EC Decision Date: 06/29/21 Decision Time: 10:27
[2021-06-29] MEDS ORDERED: KETAMINE 10 MG/ML 20 ML VIAL IV ONE ×2 (09:28→10:05)
[2021-06-29] MEDS ORDERED: PROPOFOL 10 MG/ML 20 ML VIAL IV ONE ×3 (09:30→10:07)
[2021-06-29] MEDS ORDERED: KETOROLAC 15 MG/ML 1 ML VIAL IVP STA (09:31)
--- NOTE | 2021-06-29 09:49 | XR ---
EXAMINATION TYPE: XR Hip Complete RT comment 2 views DATE OF EXAM: 06/29/2021 Comparison: 06/07/2021 Clinical History: 61-year-old female pain and limited range of motion Findings: 2 images demonstrating posterior superior dislocation of the prosthetic right hip. No periprosthetic fracture is identified or evidence of loosening. Impression: Posterior-superior dislocation of the prosthetic right hip.
[2021-06-29] MEDS ORDERED: NALOXONE 0.4 MG/ML 1 ML VIAL IV PRN ×2 (10:16→13:04)
[2021-06-29] MEDS ORDERED: HYDROmorphone 1 MG/ML 1 ML SYRINGE IVP PRN (10:16)
[2021-06-29] MEDS: SODIUM CHLORIDE 0.9% 1,000 ML IV SCH (11:06)
--- NOTE | 2021-06-29 13:01 | P.HPOR ---
History of Present Illness H&P Date: 06/29/21 Chief Complaint: Periprosthetic right hip dislocation Patient is a 61-year-old female who presented to [facility] for evaluation of right lower extremity injury. Apparently the patient was getting up and going to the restroom when her leg gave out. She was unable to weight- bear, EMS to bring the patient to the hospital. Upon arrival to the hospital, imaging and lab tests were done. Images demonstrated a periprosthetic right hip dislocation. An attempt was made via the ER staff under sedation to relocate the hip, this wasn't achievable. We were contacted by the emergency room staff and discussed the case. Dr. Blue was the operating surgeon back on 06/02/2021. Patient will be admitted to our orthopedic service for further intervention. Patient was evaluated on the medical surgical floor today, she is resting in her hospital bed. Most of the discomfort is in the right lower extremity when she moves. She has no other orthopedic complaints, this to include cervical, thoracic or lumbar pain, bilateral upper extremity or left lower extremity pain. She has good sensation throughout the right lower extremity. Patient has not been seen in the outpatient setting for her follow-up visits, she is missed 2 visits are ready. During her first admission after surgery she did leave AGAINST MEDICAL ADVICE, she then was admitted to the hospital a few days later with pain control issues, she again left AGAINST MEDICAL ADVICE. 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 Date of last positivie culture/infection: 03/01/20 MDRO Source:: Left Axilla Past Surgical History: Orthopedic Surgery Additional Past Surgical History / Comment(s): facial reconstructive, R hip replacement Past Anesthesia/Blood Transfusion Reactions: No Reported Reaction Past Psychological History: Anxiety, Depression Smoking Status: Current every day smoker Past Alcohol Use History: None Reported Past Drug Use History: Marijuana - Past Family History Mother Family Medical History: No Reported History Father Family Medical History: Hypertension Additional Family Medical History / Comment(s): alcoholic Medications and Allergies Home Medications Medication Instructions Recorded Confirmed Type ALPRAZolam [Xanax] 2 mg PO BID PRN 12/20/19 06/29/21 History HYDROcodone/APAP 10-325MG [[place] 1 tab PO QID PRN 12/20/19 06/29/21 History 10-325] Allergies Allergy/AdvReac Type Severity Reaction Status Date / Time fentanyl Allergy Anaphylaxis Verified 06/29/21 10:39 oxycodone [From OxyContin] Allergy Anaphylaxis Verified 06/29/21 10:39 morphine AdvReac Hallucinati Verified 06/29/21 10:39 ons Physical Examination Right lower extremity: No obvious open lesions or sores are visualized throughout the extremity, there is a small area of granulation tissue noted over the anterior hip incision, the remaining incision remains well-healed. Obvious shortening and internal rotation with hip flexion and knee flexion noted compared to the contralateral extremity Compartments of the right lower extremity both anterior-posterior soft touch, calf is soft, no tenderness with palpation Range of motion of the hip was not assessed along with the knee. Plantar flexion, dorsiflexion, EHL, FHL are intact Sensory exam to light touch is intact about the extremity, dorsalis pedis pulses 2+ Results - Diagnostic results Hip x-ray: report reviewed, image reviewed (X-rays reviewed of the right hip, they demonstrate periprosthetic dislocation. No obvious abnormality is visualized of the acetabular femoral stem component. Computed tomography scan will be ordered for further evaluation) Assessment and Plan Assessment: Right hip periprosthetic hip dislocation History of direct anterior right total hip arthroplasty, 06/02/2021 Other medical comorbidities Plan: I was able to discuss the case, including but physical exam findings and imaging studies of my attending Dr. Blue. Plan is to proceed with a attempted closed reduction in the operating room with the help of anesthesia in the use of C-arm. Patient consent form will include possible revision of direct anterior total hip arthroplasty. Planning for surgery on 06/30/2021 Regular diet at this time, nothing by mouth after midnight Obtain consent Pain control, will restart [place] 10 mg/325 mg, a MATERIALS MGMT TECH pump will also be ordered for pain control GI and DVT prophylaxis, heparin 5000 units every 12 hours, we'll discontinue the night before surgery Nonweightbearing right lower extremity at this time Further recommendations Time with Patient: Less than 30
[2021-06-29] MEDS ORDERED: HYDROcodone/APAP 10-325MG 1 EACH TAB PO PRN (13:02)
[2021-06-29] MEDS ORDERED: ONDANSETRON 4 MG/2 ML VIAL IVP PRN (13:04)
[2021-06-29] MEDS ORDERED: HYDROmorphone PCA 10 MG/50 ML BAG IV PRN (13:04)
[2021-06-29] MEDS ORDERED: KETOROLAC 30 MG/ML 1 ML VIAL IVP PRN (13:30)
[2021-06-29] MEDS: NICOTINE 21MG/24HR PATCH TRANSDERM SCH (13:51)
[2021-06-29] MEDS: ALPRAZolam 1 MG TAB PO PRN ×2 (14:06→22:04)
--- NOTE | 2021-06-29 14:44 | CONS ---
CONSULTATION CHIEF COMPLAINT: Pain in the right hip. HISTORY OF PRESENT ILLNESS: This is another recent admission for this 61-year-old white female with a history of hypertension and COPD. She recently underwent a right hip replacement. She was home doing well when she went to the bathroom and her hip gave out gave way on her and she fell. She came to emergency room where she was found to have a dislocated right hip prosthesis. REVIEW OF SYSTEMS: Other than the pain, she is intact. She has had no syncope, confusion, focal neurologic deficits, fever, chills, chest pain, abdominal pain, urinary complaints, etc. Past medical history, family history, personal and social histories are all otherwise unremarkable and unchanged from recent admission. She does smoke heavily. PHYSICAL EXAMINATION: Blood pressure is 173/105 with a pulse of 73, respirations of 18. She is afebrile. In general, she appeared to be well developed, well nourished, and in quite a bit of pain. Skin color is normal skin is warm, dry. Lymph nodes are not enlarged. Head, ears, eyes, nose, mouth and throat were normal. Neck veins not distended. Thyroid is not enlarged. Chest is clear. Cardiac exam is normal. Abdomen is soft and nontender. IMPRESSION: 1. Subluxation of right hip prosthesis. 2. Hypertension. 3. Chronic obstructive pulmonary disease. PLAN: No change in management at this time. Her Xanax will be represcribed. Analgesia will be important prior to her reduction and her blood pressure will have to be watched. Thank you for this consultation. MMODL / IJN: [id number] /
[2021-06-30] MEDS: ALPRAZolam 1 MG TAB PO PRN ×2 (04:27→10:46)
[2021-06-30] MEDS: SODIUM CHLORIDE 0.9% 1,000 ML IV SCH ×3 (06:14→13:16)
[2021-06-30] MEDS ORDERED: IV FLUID CONTINUATION 1,000 ML IV ONE (11:47)
[2021-06-30] MEDS ORDERED: DEXAMETHASONE SOD PHOSPHATE 4 MG/ML 1 ML VIAL IVP ONE (12:11)
[2021-06-30] MEDS ORDERED: ONDANSETRON 4 MG/2 ML VIAL IVP ONE (12:11)
[2021-06-30] MEDS ORDERED: MIDAZOLAM 2 MG/2 ML VIAL IVP ONE (12:12)
[2021-06-30] MEDS ORDERED: KETAMINE 10 MG/ML 20 ML VIAL ONE (13:13)
[2021-06-30] MEDS ORDERED: HYDROmorphone (PF) 1 MG/ML ONE (13:13)
[2021-06-30] MEDS ORDERED: MIDAZOLAM 2 MG/2 ML VIAL ONE (13:13)
[2021-06-30] MEDS ORDERED: LIDOCAINE 1% INJ 10MG/ML (20 ML MDV) ONE (13:13)
[2021-06-30] MEDS ORDERED: PROPOFOL 10 MG/ML 20 ML VIAL IV ONE (13:13)
[2021-06-30] MEDS ORDERED: SUCCINYLCHOLINE CHLORIDE 100 MG/5 ML SYR IV ONE (13:13)
--- NOTE | 2021-06-30 13:47 | P.OP ---
Date of Procedure: 06/30/21 Preoperative Diagnosis: Right total hip arthroplasty dislocation Postoperative Diagnosis: Same Procedure(s) Performed: Closed reduction right hip Anesthesia: RED Surgeon: Atif Blue Estimated Blood Loss (ml): 0 Pathology: none sent Condition: stable Disposition: PACU Indications for Procedure: 61-year-old patient seen with right total hip arthroplasty dislocation. I recommended closed reduction. Patient was agreeable consent was obtained. Operative Findings: see description of procedure Description of Procedure: Patient was taken to the operative suite. She underwent general anesthetic by the department of anesthesia. She was transferred to the operative/anterior table. The lower portion was placed in standard spars. The C-arm was brought into the operative field. Closed reduction was performed. This was done without any significant difficulty. Once we did reduce it we noted good reduction with no associated abnormalities. The components appeared well seated and stable. I now took the hip through range of motion to include extension and external rotation with good stability of the hip noted. At this point the patient was awakened and transferred to a bed and recovery in stable condition.
--- NOTE | 2021-06-30 14:10 | FL ---
EXAMINATION TYPE: FL guidance operating room DATE OF EXAM: 06/30/2021 HISTORY: Fluoroscopy time 13 seconds of fluoroscopy provided. IMPRESSION: 1. Fluoroscopy time.
[2021-06-30] MEDS: NICOTINE 21MG/24HR PATCH TRANSDERM SCH (15:24)
[2021-06-30] MEDS: HYDROmorphone 1 MG/ML 1 ML SYRINGE IVP PRN ×2 (17:34→22:04)
--- NOTE | 2021-06-30 19:01 | PN ---
PROGRESS NOTE DATE OF SERVICE: 06/30/2021 CHIEF COMPLAINT: Subluxation of right hip prosthesis. HISTORY OF PRESENT ILLNESS: This lady is going to the operating room for closed reduction of the dislocation of the right hip prosthesis. Other than the pain, she is doing well. PHYSICAL EXAMINATION: Her chest is clear. Cardiac exam is normal. Abdomen is soft, nontender. IMPRESSION: 1. Subluxed right hip prosthesis. 2. Hypertension. 3. Chronic obstructive pulmonary disease. PLAN: Reduction of dislocation of the right hip today. MMODL / IJN: [id number] /
[2021-06-30] MEDS: HYDROcodone/APAP 10-325MG 1 EACH TAB PO PRN (20:17)
[2021-07-01] MEDS: ALPRAZolam 1 MG TAB PO PRN ×3 (00:08→22:33)
[2021-07-01] MEDS: HYDROmorphone 1 MG/ML 1 ML SYRINGE IVP PRN ×6 (02:33→22:34)
[2021-07-01] MEDS: SODIUM CHLORIDE 0.9% 1,000 ML IV SCH ×2 (04:36→18:11)
[2021-07-01] MEDS: HYDROcodone/APAP 10-325MG 1 EACH TAB PO PRN ×3 (05:51→20:12)
[2021-07-01] MEDS: NICOTINE 21MG/24HR PATCH TRANSDERM SCH (10:38)
--- NOTE | 2021-07-01 10:47 | P.PN ---
Subjective Progress Note Date: 07/01/21 Principal diagnosis: Status post closed reduction right periprosthetic hip dislocation Patient evaluated at bedside, she is resting in her hospital bed. She is having some discomfort in the right lower extremity but improved. She has been ambulating, she has noticed some difficulty with that. She is hoping to stay 1 additional night. The WELFARE ELIGIBILITY INTERVIEWER pump has been discontinued, she's utilizing oral and IV pain medication for breakthrough. She has no other orthopedic complaints at this time. Objective - Vital Signs Vital signs: Vital Signs Temp 98 F 07/01/21 08:00 Pulse 85 07/01/21 08:00 Resp 16 07/01/21 08:00 BP 127/82 07/01/21 08:00 Pulse Ox 100 07/01/21 08:00 Intake & Output 06/30/21 07/01/21 07/01/21 18:59 06:59 18:59 Intake Total 1140 Output Total 2600 400 Balance -1460 -400 Intake: IV 600 Oral 540 Output: Urine 2600 400 Uretheral (Anderson) 600 Estimated Blood Loss 0 Other: Voiding Method Indwelling Catheter Toilet # Voids 4 # Bowel Movements 0 - Exam Right lower extremity: No malalignment is observed of the right lower extremity when compared to contralateral side Significant erythema or soft tissue swelling present Small area of granulation tissue present in the midline and the incision, cell or a gel was reapplied today Sensory exam light touch is intact throughout the extremity Range of motion is intact with hip flexion, knee extension, knee flexion, plantar flexion, dorsiflexion, EHL, FHL Dorsalis pedis pulses 2+ Assessment and Plan Assessment: Postoperative day 1 status post closed reduction right hip periprosthetic dislocation Plan: Pain control, continue with current medications Weight-bear as tolerated with walker PT/OT evaluation Plan for discharge home tomorrow Time with Patient: Less than 30
--- NOTE | 2021-07-01 11:25 | PN ---
PROGRESS NOTE DATE OF SERVICE: 07/01/2021. CHIEF COMPLAINT: Status post relocation of subluxed right hip prosthesis. HISTORY OF PRESENT ILLNESS: This lady is doing well and she is in much less pain. Vital signs are normal. PHYSICAL EXAMINATION: Her chest is clear. Cardiac exam is normal. The abdomen is soft, nontender. IMPRESSION: 1. Status post reduction of right hip prosthesis subluxation. 2. Chronic obstructive pulmonary disease. 3. Hypertension. PLAN: Probably home later today. MMODL / IJN: [id number] /
[2021-07-02] MEDS: HYDROmorphone 1 MG/ML 1 ML SYRINGE IVP PRN ×3 (02:08→08:08)
[2021-07-02 03:31] VITALS: RESP 18
[2021-07-02] MEDS: SODIUM CHLORIDE 0.9% 1,000 ML IV SCH (06:15)
[2021-07-02 07:54] VITALS: BP 121/76; PULSE 83; TEMP 97.6
[2021-07-02] MEDS: NICOTINE 21MG/24HR PATCH TRANSDERM SCH (08:08)
--- NOTE | 2021-07-02 08:44 | P.PN ---
Subjective Progress Note Date: 07/02/21 Principal diagnosis: Status post closed reduction right periprosthetic hip dislocation Patient evaluated at bedside, she is resting in her hospital bed. Pain is better controlled today. She has no other orthopedic complaints at this time. Objective - Vital Signs Vital signs: Vital Signs Temp 97.6 F 07/02/21 07:53 Pulse 83 07/02/21 07:53 Resp 18 07/02/21 07:53 BP 121/76 07/02/21 07:53 Pulse Ox 97 07/02/21 07:53 Intake & Output 07/01/21 07/02/21 07/02/21 18:59 06:59 18:59 Intake Total 2160 Balance 2160 Intake: Oral 2160 Other: Voiding Method Toilet Toilet # Voids 3 1 # Bowel Movements 0 - Exam Right lower extremity: No malalignment is observed of the right lower extremity when compared to contralateral side Significant erythema or soft tissue swelling present Small area of granulation tissue present in the midline and the incision, cell or a gel was reapplied today Sensory exam light touch is intact throughout the extremity Range of motion is intact with hip flexion, knee extension, knee flexion, plantar flexion, dorsiflexion, EHL, FHL Dorsalis pedis pulses 2+ Assessment and Plan Assessment: Postoperative day #2 status post closed reduction right hip periprosthetic dislocation Plan: Pain control, patient has pain medication at home. Weight-bear as tolerated with walker. We discussed activity level restrictions PT/OT evaluation Plan for discharge home today, follow up in office in 2 weeks Time with Patient: Less than 30
--- NOTE | 2021-07-02 08:49 | P.DS ---
Providers Date of admission: 07/01/21 09:23 Expected date of discharge: 07/02/21 Attending physician: Atif Blue Primary care physician: Freddy Hernandez Hospital Course: Date of admission: 06/29/2021 Date of discharge: 07/02/2021 Admission diagnosis: Right periprosthetic hip dislocation Discharge diagnosis: Status post closed reduction right periprosthetic hip dislocation Attending physician: Dr. Blue Surgical procedures: Closed reduction right periprosthetic hip dislocation Brief history: Patient is a 61-year-old female with a history of a recent right total hip arthroplasty direct anterior approach by Dr. Blue in May 2021. Patient had not been evaluated in the outpatient setting for follow-up, she has missed a few appointments. Patient also left AGAINST MEDICAL ADVICE on 2 separate occasions after her surgery. Patient presented to [facility] on 06/29/2021 after dislocating the right hip at home. Patient was admitted to [facility] with plan for closed reduction of the right periprosthetic hip dislocation. Hospital course: Details of patient's surgery can be found in operative report. Patient tolerated the procedure well and was subsequently transported to orthopedic floor. Patient's orthopeidc and medical care was provided daily. Patient had daily laboratory tests performed for evaluation of overall blood counts. Patient had daily physical therapy to include strengthening range of motion as well as education with walker ambulation. Patient was noted to have a relatively uneventful postoperative course. Patient reported satisfactory pain control with oral pain medications by postoperative day 1. Patient showed satisfactory progress with physical therapy. Patient moved steadily through the program and had no difficulty meeting the goals by postoperative day 2. Given patient's otherwise satisfactory course and having met physical therapy goals, plan is to discharge patient home on postoperative day 2. Discharge condition/disposition: Patient will be discharged home in stable condition. Discharge medications: Instructions are given on resumption of patient's normal daily medications per primary care recommendation, in addition patient will be prescribed no new medication. Discharge instructions: 1. Wound care and infection precautions, [keep incision dry and covered while showering], no lotions, creams, moisturizers. No soaking, tubs, pools, hottubs. Do not scrub over the incision. 2. Weight-bear as tolerated with walker / cane until follow-up. 3. Ice and elevate when necessary. Do not exceed 20 minutes per hour with ice pack. 4. Utilize compression sleeve until seen at first follow up appointment. 5. Visiting nursing care. 6. Home physical therapy 7. Pain meds and anticoagulants per prescription. 8. Pain medication has potential to cause constipation. Increase oral fluid and fiber intake. Contact primary care provider if you have not had a bowel movement within 48 hours after discharge 9. No anti-inflammatory medication until discussed at first post operative visit, this including Motrin, Aleve, Mobic, Diclofenac 10. Follow up in office at 2 weeks postop with Bala Del Valle PA-C/Donta Diaz 11. Follow up with your primary care doctor 7-10 days after discharge. 12. Contact [facility] with any questions, . Procedures: Closed reduction right periprotetic hip dislocation Patient Condition at Discharge: Stable Plan - Discharge Summary Discharge Rx Participant: No New Discharge Prescriptions: No Action ALPRAZolam [Xanax] 2 mg PO BID PRN PRN Reason: Anxiety HYDROcodone/APAP 10-325MG [[place] 10-325] 1 tab PO QID PRN PRN Reason: Pain Discharge Medication List ALPRAZolam [Xanax] 2 mg PO BID PRN 12/20/19 [History] HYDROcodone/APAP 10-325MG [[place] 10-325] 1 tab PO QID PRN 12/20/19 [History] Follow up Appointment(s)/Referral(s): Freddy Hernandez MD [Primary Care Provider] - 1-2 days Jim Del Valle PAC [PHYSICIAN INSTRUCTOR DANCING] - 2 Weeks Activity/Diet/Wound Care/Special Instructions: Orthopedic discharge instructions: 1. Resume home medications as prescribed 2. Avoid excess flexion of the hip, avoid sitting in a low seated chair. Do not cross legs. 3. Recommend use of walker with ambulation for the next 2 weeks 4. Plan for follow-up at [facility] in 2 weeks. Discharge Disposition: Left Against Medical Advice
--- NOTE | 2021-07-03 19:02 | PN ---
PROGRESS NOTE DATE OF SERVICE: 07/02/2021 CHIEF COMPLAINT: Dislocation of the right hip prosthesis. HISTORY OF PRESENT ILLNESS: This lady is doing well. She is not having a great deal of pain. She will probably go home today. She is afebrile. Chest is clear and cardiac exam is normal. The abdomen is soft and nontender. IMPRESSION: Subluxation of the right hip prosthesis. PLAN: Probably home today. MMODL / IJN: [id number] /
== END 2021-07-02 08:35 | disposition left against medical advice (07) | DRG 561 ==
LOC: EC 08:49 → 4SSUR 10:16 → OBSVTOIN 07-01 09:23
PROVIDERS: ADMIT Orthopaedic Surgery; ATTEND Orthopaedic Surgery
PROC: 0SWRXJZ Revision of Synthetic Substitute in Right Hip Joint, Femoral Surface, External Approach (ICD-10-PCS; 2021-06-29)
PROC: 0SWRXJZ Revision of Synthetic Substitute in Right Hip Joint, Femoral Surface, External Approach (ICD-10-PCS; principal; 2021-06-30 07:30)
DX: T84.020A Dislocation of internal right hip prosthesis, initial encounter (principal); J44.9 Chronic obstructive pulmonary disease, unspecified; Z20.822 Contact with and (suspected) exposure to COVID-19; I10 Essential (primary) hypertension; F41.9 Anxiety disorder, unspecified; H54.62 Unqualified visual loss, left eye, normal vision right eye; F32.A Depression, unspecified; R26.2 Difficulty in walking, not elsewhere classified; F17.210 Nicotine dependence, cigarettes, uncomplicated; Z71.6 Tobacco abuse counseling; Z53.29 Procedure and treatment not carried out because of patient's decision for other reasons; Z86.73 Personal history of transient ischemic attack (TIA), and cerebral infarction without residual deficits; Z86.14 Personal history of Methicillin resistant Staphylococcus aureus infection; Y79.2 Prosthetic and other implants, materials and accessory orthopedic devices associated with adverse incidents; Z88.5 Allergy status to narcotic agent; Z82.49 Family history of ischemic heart disease and other diseases of the circulatory system; Z81.1 Family history of alcohol abuse and dependence
CPT/HCPCS: 73501; 73502; 87635; 96374; 96375; 96376; 99152; 99153; 99285

== ENCOUNTER 2021-07-06 19:33 | Inpatient (IN) | payer MEDICARE ==
[2021-07-06] MEDS ORDERED: KETOROLAC 15 MG/ML 1 ML VIAL IVP STA (19:52)
--- NOTE | 2021-07-06 19:58 | ED ---
General Adult HPI - General Chief complaint: Extremity Injury, Lower Stated complaint: R Hip Dislocation Time Seen by Provider: 07/06/21 19:45 Source: patient, RN notes reviewed, old records reviewed Mode of arrival: EMS - History of Present Illness Initial comments: 61-year-old female presents to the emergency room with complaints of right hip dislocation. She states she was lying on her bed and leaned over and felt a dislocation. She states that she was recently hospitalized for dislocation of this hip and seen Dr Blue. She states that had difficulty reducing the d islocation last time and had to be admitted. She states she has been on pain medications for over 20 years and has built up a tolerance. She states that she normally gets Toradol and Dilaudid for the pain. -: hour(s) (5) Location: right, lower extremity (Hip) Severity scale (1-10): 10 Quality: aching, constant Consistency: constant Improves with: none Worsens with: movement Associated Symptoms: denies other symptoms Treatments Prior to Arrival: none - Related Data Home Medications Medication Instructions Recorded Confirmed ALPRAZolam [Xanax] 2 mg PO BID PRN 12/20/19 07/06/21 HYDROcodone/APAP 10-325MG [[place] 1 tab PO QID PRN 12/20/19 07/06/21 10-325] Ergocalciferol [Vitamin D2 (1250 1,250 mcg PO Q30D 07/06/21 07/06/21 Mcg = 81842 Iu)] Allergies Allergy/AdvReac Type Severity Reaction Status Date / Time fentanyl Allergy Anaphylaxis Verified 07/06/21 20:47 oxycodone [From OxyContin] Allergy Anaphylaxis Verified 07/06/21 20:47 morphine AdvReac Hallucinati Verified 07/06/21 20:47 ons Review of Systems ROS Statement: Those systems with pertinent positive or pertinent negative responses have been documented in the HPI. ROS Other: All systems not noted in ROS Statement are negative. 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 Date of last positivie culture/infection: 03/01/20 MDRO Source:: Left Axilla Past Surgical History: Orthopedic Surgery Additional Past Surgical History / Comment(s): facial reconstructive, R hip replacement Past Anesthesia/Blood Transfusion Reactions: No Reported Reaction Past Psychological History: Anxiety, Depression Smoking Status: Current every day smoker - Past Family History Mother Family Medical History: No Reported History Father Family Medical History: Hypertension Additional Family Medical History / Comment(s): alcoholic General Exam Limitations: no limitations General appearance: alert, in no apparent distress Eye exam: Present: normal appearance (right eye ), other (blind left eye). Absent: scleral icterus, conjunctival injection ENT exam: Present: mucous membranes moist Neck exam: Present: full ROM. Absent: tenderness, meningismus Respiratory exam: Present: normal lung sounds bilaterally. Absent: respiratory distress Cardiovascular Exam: Present: regular rate GI/Abdominal exam: Present: soft. Absent: tenderness Extremities exam: Present: normal capillary refill Right Hip exam: Present: tenderness, swelling, internal rotation, shortening. Absent: full ROM, erythema Knee exam: Present: normal inspection (Flexed). Absent: tenderness Lower Leg exam: Absent: tenderness Ankle exam: Absent: tenderness Neurovascular tendon exam: Present: no vascular compromise. Absent: pulse deficit, abnormal cap refill, extremity cold to touch Neurological exam: Present: alert, oriented X3 Psychiatric exam: Present: normal affect, normal mood Skin exam: Present: warm, dry, intact, normal color. Absent: cyanosis, diaphoretic Course Vital Signs 07/06/21 07/06/21 07/06/21 19:38 21:08 23:27 Temperature 97 F L Pulse Rate 85 78 71 Respiratory 18 18 18 Rate Blood Pressure 142/89 148/77 141/76 O2 Sat by Pulse 100 99 97 Oximetry 07/07/21 00:16 Temperature Pulse Rate 79 Respiratory 18 Rate Blood Pressure 148/78 O2 Sat by Pulse 96 Oximetry Medical Decision Making - Medical Decision Making 61-year-old female presents with complaints of right hip dislocation tonight while leaning on it in bed. Patient denies falling or any other injuries. Pedal pulses are present. Patient was given pain medication. X-ray of the right hip shows dislocation of the prostatic femoral head. I did speak with Dr. Nagy who suggested I admit the patient to Dr. Blue and will see her tomorrow. Patient is agreeable to this plan of care. Disposition Clinical Impression: Dislocation of right hip Disposition: ADMITTED IP TO THIS [facility] Decision Date: 07/06/21 Decision Time: 21:49
[2021-07-06] MEDS ORDERED: HYDROmorphone 1 MG/ML 1 ML SYRINGE IVP STA (20:00)
[2021-07-06] MEDS: ALPRAZolam 1 MG TAB PO SCH (21:31)
--- NOTE | 2021-07-06 21:37 | XR ---
EXAMINATION TYPE: XR Hip Complete RT DATE OF EXAM: 07/06/2021 COMPARISON: NONE HISTORY: Hip pain TECHNIQUE: 2 view FINDINGS: There is right hip prosthesis. There is a superior lateral dislocation of the prosthetic fe moral head. No fracture seen. IMPRESSION: Right hip prosthesis dislocation.
[2021-07-06] MEDS ORDERED: HYDROmorphone 0.5 MG/0.5 ML SYRINGE IVP STA (21:47)
[2021-07-06] MEDS ORDERED: NALOXONE 0.4 MG/ML 1 ML VIAL IV PRN (21:49)
[2021-07-06] MEDS ORDERED: ACETAMINOPHEN TAB 325 MG TAB PO PRN (21:49)
[2021-07-06] MEDS ORDERED: IBUPROFEN 400 MG TAB PO PRN (21:49)
[2021-07-06] MEDS ORDERED: ERGOCALCIFEROL 1,250 MCG (50,000 IU) CAPSULE PO SCH (22:00)
[2021-07-07] MEDS: HYDROcodone/APAP 10-325MG 1 EACH TAB PO PRN ×2 (03:30→08:32)
[2021-07-07] MEDS ORDERED: HYDROmorphone 1 MG/ML 1 ML SYRINGE IVP STA (03:50)
[2021-07-07] MEDS: ALPRAZolam 1 MG TAB PO SCH ×2 (08:33→20:36)
[2021-07-07] MEDS: HYDROmorphone 1 MG/ML 1 ML SYRINGE IVP PRN ×4 (09:13→23:21)
[2021-07-07] MEDS ORDERED: LACTATED RINGERS 1,000 ML IV ONE ×3 (14:13→16:22)
[2021-07-07] MEDS ORDERED: MIDAZOLAM 2 MG/2 ML VIAL IV ONE (14:20)
[2021-07-07] MEDS ORDERED: fentaNYL (PF) 50 MCG/ML 2 ML AMP IV ONE ×2 (14:30→14:36)
--- NOTE | 2021-07-07 14:44 | P.HPOR ---
History of Present Illness H&P Date: 07/07/21 Chief Complaint: Right periprosthetic hip dislocation Patient is a 61-year-old female who is known to our practice. She underwent an initial direct anterior right total hip arthroplasty by Dr. Blue over a month ago. She was evaluated last week for a periprosthetic hip dislocation. She underwent closed reduction in the operating room that was successful. Patient understanding and infection in the hospital and was sent home. She was scheduled for follow-up in our outpatient setting this week. Patient did return back to the hospital on 07/06/2021 with concerns of a dislocation of the right hip. X-ray imaging did confirm the dislocation. Dr. Nagy who was on-call for our practice was contacted, she was admitted under our care with plan for surgical intervention for 07/07/2021. Patient was made nothing by mouth after midnight. Patient was evaluated today, she is resting in her hospital bed in the emergency room. She had a hard time describing the incident but states that she was in her bed and she was reaching for something when she felt dislocation. She was brought to the hospital by EMS. She has no other orthopedic complaints this time. She is requesting a pain medication due to her high tolerance. Review of Systems Constitutional: Reports as per HPI Past Medical History Past Medical History: Asthma, CVA/TIA, Eye Disorder, Hypertension, Liver Disease, Osteoarthritis (OA) Additional Past Medical History / Comment(s): R hip dislocations, OA R hip, past cervical and low back fractures as well as past R elbow fracture, chronic pain, CVA per MRI/no residuals, hepatitis C, L eye blindness from dog bite injury. History of Any Multi-Drug Resistant Organisms: MRSA Date of last positivie culture/infection: 03/01/20 MDRO Source:: Left Axilla Past Surgical History: Joint Replacement, Orthopedic Surgery Additional Past Surgical History / Comment(s): 06/30/21 R hip closed reduction, R hip replacement, R middle finger debra release, pain clinic procedures, EGD. Past Anesthesia/Blood Transfusion Reactions: No Reported Reaction Smoking Status: Current every day smoker - Past Family History Mother Family Medical History: No Reported History Father Family Medical History: Hypertension Additional Family Medical History / Comment(s): alcoholic Medications and Allergies Home Medications Medication Instructions Recorded Confirmed Type ALPRAZolam [Xanax] 2 mg PO BID PRN 12/20/19 07/06/21 History HYDROcodone/APAP 10-325MG [[place] 1 tab PO QID PRN 12/20/19 07/06/21 History 10-325] Ergocalciferol [Vitamin D2 (1250 1,250 mcg PO Q30D 07/06/21 07/06/21 History Mcg = 06059 Iu)] Allergies Allergy/AdvReac Type Severity Reaction Status Date / Time morphine AdvReac Hallucinati Verified 07/06/21 20:47 ons Physical Examination Right lower extremity: Incision over the anterior aspect of the upper thighs well-healing, the small area of granulation tissue is improving significantly. There are no areas of erythema, is no active drainage. There is no areas of fluctuance Obvious shortening and external rotation of the leg noted compared to the contralateral side Range of motion was not assessed of the hip and knee due to significant pain Plantar flexion, dorsiflexion, EHL, FHL are intact Compartments of the anterior and posterior leg are soft and compressible, calf is soft, no tenderness with palpation Sensory exam light touch is intact at the extremity, dorsalis pedis pulses 2+ Results - Diagnostic results Hip x-ray: report reviewed, image reviewed (Images demonstrated a periprosthetic right hip dislocation. No obvious acute fractures are present, no significant abnormality of the implants is noted) Assessment and Plan Assessment: Right periprosthetic hip dislocation History of recent periprosthetic hip dislocation with closed reduction History of recent direct anterior right total hip arthroplasty Plan: Dr. Blue was well today to discuss the case and treatment options. Patient was scheduled for a closed reduction of the right periprosthetic hip dislocation for 06/29/2021. Continue nothing by mouth diet until after surgery. Obtain consent Patient will likely be kept inpatient overnight for observation PT/OT evaluation morning after surgery GI and DVT prophylaxis per primary medical service Abductor pillow will be placed after surgery and utilized Discussed with patient she will need further surgery, this including revision of the right total hip arthroplasty. She is being scheduled for 07/14/2021. Further recommendations to follow Time with Patient: Less than 30
[2021-07-07] MEDS ORDERED: MIDAZOLAM 2 MG/2 ML VIAL ONE (14:50)
[2021-07-07] MEDS ORDERED: LIDOCAINE 1% INJ 10MG/ML (20 ML MDV) ONE (14:50)
[2021-07-07] MEDS ORDERED: PROPOFOL 10 MG/ML 20 ML VIAL IV ONE (14:50)
[2021-07-07] MEDS ORDERED: SUCCINYLCHOLINE CHLORIDE 100 MG/5 ML SYR IV ONE (14:50)
[2021-07-07] MEDS ORDERED: fentaNYL (PF) 50 MCG/ML 2 ML AMP ONE (14:50)
[2021-07-07] MEDS ORDERED: NALOXONE 0.4 MG/ML 1 ML VIAL IV PRN (15:18)
[2021-07-07] MEDS ORDERED: HYDROcodone/APAP 5-325MG 1 EACH TAB PO PRN (15:18)
[2021-07-07] MEDS ORDERED: HYDROmorphone 0.5 MG/0.5 ML SYRINGE IVP PRN ×2 (15:18)
[2021-07-07] MEDS ORDERED: HYDROmorphone 0.2 MG/1 ML SYRINGE IVP PRN (15:18)
--- NOTE | 2021-07-07 15:18 | P.OP ---
Date of Procedure: 07/07/21 Preoperative Diagnosis: Right total hip arthroplasty dislocation Postoperative Diagnosis: Right total hip arthroplasty dislocation Procedure(s) Performed: Closed reduction right hip dislocation Anesthesia: RED Surgeon: Atif Blue Estimated Blood Loss (ml): 0 Pathology: none sent Condition: stable Disposition: PACU Indications for Procedure: 61-year-old patient seen with a right total hip arthroplasty dislocation. I discussed closed reduction. She was agreeable. Consent was obtained. Operative Findings: See description of procedure Description of Procedure: Patient was taken to the operative suite. She underwent a general anesthetic by the department of anesthesia. His transferred to the [place] table. C-arm brought into the operative field. I performed a closed reduction without difficulty. I noted good reduction of the total hip arthroplasty. There were no associated fractures a good vision visualized. I took the hip through range of motion while under direct fluoroscopy and did not note any obvious instability. The patient was placed into an abduction pillow. The patient was then awakened and transferred to a bed and then recovery stable condition.
[2021-07-07] MEDS ORDERED: HYDROmorphone 1 MG/ML 1 ML SYRINGE IVP PRN ×2 (15:24)
--- NOTE | 2021-07-07 17:13 | XR ---
Fluoroscopy HISTORY: Closed reduction for hip dislocation 2 seconds fluoroscopy time supplied to the referring clinician. 1 intraoperative C-arm images docume nt the procedure. See dictated report from orthopedic surgery.
[2021-07-07] MEDS ORDERED: HYDROmorphone 0.5 MG/0.5 ML SYRINGE IVP ONE ×2 (18:10→19:05)
[2021-07-07] MEDS: HYDROcodone/APAP 7.5-325MG 1 EACH TAB PO PRN ×2 (18:52→23:21)
[2021-07-07] MEDS: LACTATED RINGERS 1,000 ML IV SCH (20:21)
--- NOTE | 2021-07-07 20:23 | PN ---
PROGRESS NOTE DATE OF SERVICE: 07/07/2021 CHIEF COMPLAINT: Dislocation of the right hip prosthesis. HISTORY OF PRESENT ILLNESS: This lady is stable, but in quite a bit of discomfort. PHYSICAL EXAMINATION: Her chest is clear. Cardiac exam is normal. IMPRESSION: 1. Second subluxation of right hip prosthesis. 2. Hypertension. 3. Chronic obstructive pulmonary disease. PLAN: Analgesia and wait for a return trip to the operating room. MMODL / IJN: [id number] /
--- NOTE | 2021-07-07 20:34 | CONS ---
CONSULTATION CHIEF COMPLAINT: Pain in the right hip. HISTORY OF PRESENT ILLNESS: This is another admission for this lady who just went home after her right hip prosthesis had been reduced from its dislocated state. Apparently she went home and the same thing happened again. She is back again. REVIEW OF SYSTEMS: She has had no headaches, chest pain, shortness of breath, abdominal pain, fever, chills, etc. She is not having trouble with the right leg neurologically. Past medical history, family history, and personal and social histories are all otherwise unremarkable or noncontributory and unchanged from her discharge several days ago. PHYSICAL EXAMINATION: Blood pressure is 145/90 with a pulse of 88, respirations of 29, and she is afebrile. In general she appeared to be in no acute distress. Skin color is normal. Skin is warm, dry. Head, ears, eyes, nose, mouth and throat were normal except for the absence of her left eye. Neck veins are not distended. The chest is clear. Cardiac exam is normal. Abdomen is soft, nontender. Extremities are normal. IMPRESSION: 1. Second dislocation of right hip prosthesis. 2. Chronic obstructive pulmonary disease. 3. Hypertension. PLAN: IV fluids, analgesia, and reduce right hip prosthesis again. MMODL / IJN: [id number] /
[2021-07-08] MEDS: HYDROmorphone 1 MG/ML 1 ML SYRINGE IVP PRN ×8 (02:25→21:29)
[2021-07-08] MEDS: HYDROcodone/APAP 7.5-325MG 1 EACH TAB PO PRN ×2 (04:30→09:51)
[2021-07-08] MEDS: LACTATED RINGERS 1,000 ML IV SCH (07:11)
[2021-07-08] MEDS: ALPRAZolam 1 MG TAB PO SCH ×2 (07:12→20:31)
[2021-07-08] MEDS: MULTIVITAMINS, THERA 1 EACH TAB PO SCH (07:13)
--- NOTE | 2021-07-08 10:55 | P.PN ---
Subjective Progress Note Date: 07/08/21 Principal diagnosis: Status post closed reduction right periprosthetic hip dislocation Patient was evaluated today at bedside, she is resting in her hospital bed. Currently the abductor pillow is not in place, she states she just removed it she was getting in his restaurant. Patient is very emotional when discussing her current care. We discussed the use of IV Dilaudid and trying to limit that. I will adjust that medication. She is adamant about going home today. I dis cussed the patient's otherwise keep her at least one more day for observation. She's not having any chest pain or shortness of breath sign. She has generalized discomfort in the right lower extremity. Objective - Vital Signs Vital signs: Vital Signs Temp 97.4 F L 07/08/21 08:00 Pulse 84 07/08/21 08:00 Resp 18 07/08/21 08:00 BP 146/84 07/08/21 08:00 Pulse Ox 96 07/08/21 08:00 Intake & Output 07/07/21 07/08/21 07/08/21 18:59 06:59 18:59 Intake Total 1550 500 Output Total 1200 2400 Balance 350 -1900 Weight 90.718 kg Intake: IV 1550 Intake, IV Titration 500 Amount Lactated Ringers 1,000 ml 500 @ 50 mls/hr IV .Q20H [facility] Rx#:[id number] Output: Urine 1200 2400 Uretheral (Anderson) 1200 Other: Voiding Method Indwelling Catheter - Exam Right lower extremity: No malalignment of the extremity when compared to the contralateral side Incision is well healing at this time, no significant areas of erythema or fluctuance appreciated Logroll maneuver reproduces minimal discomfort Extension and flexion are intact at the knee, plantar flexion, dorsiflexion, EHL, FHL are intact Sensory exam light touch is intact throughout the extremity, dorsalis pedis pulses 2+ Assessment and Plan Assessment: Status post closed reduction right periprosthetic dislocation Plan: Pain control, did adjust IV pain medication along with her oral pain medication DVT prophylaxis, aspirin 81 mg twice a day Activity level instructions were discussed with patient, this including use of the abductor pillow. Patient also continue her physical therapy, she'll utilize walker when ambulating Would like to keep the patient one additional day for observation with plans for discharge home on 07/09/2021 Time with Patient: Less than 30
[2021-07-08] MEDS: HYDROcodone/APAP 10-325MG 1 EACH TAB PO PRN ×2 (14:35→20:31)
[2021-07-08] MEDS: ASPIRIN 81 MG PO SCH (20:30)
[2021-07-09] MEDS: HYDROmorphone 1 MG/ML 1 ML SYRINGE IVP PRN ×2 (00:59→04:53)
[2021-07-09] MEDS: ALPRAZolam 1 MG TAB PO SCH (07:12)
[2021-07-09] MEDS: HYDROcodone/APAP 10-325MG 1 EACH TAB PO PRN (07:12)
[2021-07-09] MEDS: MULTIVITAMINS, THERA 1 EACH TAB PO SCH (07:12)
[2021-07-09] MEDS: ASPIRIN 81 MG PO SCH (07:12)
[2021-07-09 08:35] VITALS: BP 166/88; PULSE 87; RESP 16; TEMP 98.8
--- NOTE | 2021-07-09 10:38 | P.PN ---
Progress Note - Text Progress Note Date: 07/09/21 I was notified by the nursing staff early this point patient left AGAINST MEDICAL ADVICE. Patient will be contacted by our office regarding her upcoming surgery.
--- NOTE | 2021-07-09 20:18 | PN ---
PROGRESS NOTE DATE OF SERVICE: 07/08/2021 CHIEF COMPLAINT: Second dislocation of the right hip prosthesis. HISTORY OF PRESENT ILLNESS: This lady is doing fairly well and there has been no interval change. Apparently she will be going home, and they are planning a procedure later on to help secure the hip. REVIEW OF SYSTEMS: She has had no problems other than the pain. She has had no abdominal pain, chest pain, shortness of breath, etc. PHYSICAL EXAMINATION: Vital signs are normal. Chest is clear. Cardiac exam is normal. IMPRESSION: 1. Subluxation for the second time of the right hip prosthesis. 2. Chronic obstructive pulmonary disease. 3. Hypertension. PLAN: She may be going home today. MMODL / IJN: [id number] /
== END 2021-07-09 08:55 | disposition left against medical advice (07) | DRG 561 ==
LOC: EC 19:33 → 4SSUR 22:24
PROVIDERS: ADMIT Orthopaedic Surgery; ATTEND Orthopaedic Surgery
PROC: 0SWRXJZ Revision of Synthetic Substitute in Right Hip Joint, Femoral Surface, External Approach (ICD-10-PCS; principal; 2021-07-07 17:05)
DX: T84.020A Dislocation of internal right hip prosthesis, initial encounter (principal); Y79.2 Prosthetic and other implants, materials and accessory orthopedic devices associated with adverse incidents; F17.200 Nicotine dependence, unspecified, uncomplicated; H54.62 Unqualified visual loss, left eye, normal vision right eye; I10 Essential (primary) hypertension; G89.29 Other chronic pain; J44.9 Chronic obstructive pulmonary disease, unspecified; B19.20 Unspecified viral hepatitis C without hepatic coma; E78.5 Hyperlipidemia, unspecified; J45.909 Unspecified asthma, uncomplicated; Z86.14 Personal history of Methicillin resistant Staphylococcus aureus infection; Z86.73 Personal history of transient ischemic attack (TIA), and cerebral infarction without residual deficits; Z88.5 Allergy status to narcotic agent; Z79.899 Other long term (current) drug therapy; Z82.49 Family history of ischemic heart disease and other diseases of the circulatory system
CPT/HCPCS: 73501; 73502; 96374; 96375; 96376; 99284

== ENCOUNTER 2021-07-14 09:15 | Inpatient (IN) | payer MEDICARE ==
[2021-07-10 12:27] VITALS: BMI 31.3
--- NOTE | 2021-07-13 12:00 | HP ---
HISTORY AND PHYSICAL DATE OF SURGERY: 07/14/2021 Natalie Avila is a 61-year-old patient who had undergone recent right total hip arthroplasty on 06/02/2021. She subsequently had two dislocations that were reduced in the operating room. After her first reduction, I noted good stability after her dislocation, but she did dislocate a second time. I discussed at this point, given her repeated dislocations, recommendation of revision of right total hip arthroplasty to a constrained liner. I discussed the procedure, risks, complications, benefits and recovery. She was agreeable. Consent was obtained. PAST MEDICAL HISTORY: Chronic low back pain, chronic opioid use, depression. PAST SURGICAL HISTORY: Right total hip arthroplasty. DAILY MEDICATIONS: Clonidine, Sheridan, Xanax. ALLERGIES: NONE REPORTED. SOCIAL HISTORY: She smokes cigarettes. PHYSICAL EVALUATION OF THE RIGHT HIP: She has a well-healed incision. Her range of motion is without pain. Her distal neurovascular exam is intact. Radiographs of the right hip revealed a stable-appearing total hip arthroplasty. IMPRESSION: 1. Unstable right total hip arthroplasty. 2. History of right total hip arthroplasty. 3. Chronic low back pain. 4. Chronic opioid use. PLAN: Revision right total hip arthroplasty. MMODL / IJN: [id number] /
[~2021-07-14 09:15] MED LIST changes: +ACETAMINOPHEN TAB 500 MG TAB PO PRN; -DEXAMETHASONE SOD PHOSPHATE 10 MG/ML 1 ML VIAL IV ONE; -HYDROmorphone 0.5 MG/0.5 ML SYRINGE IVP PRN; +MELOXICAM 7.5 MG TAB PO PRN; -ONDANSETRON 4 MG/2 ML VIAL IVP ONE; +TRANEXAMIC ACID 1,000 MG in SODIUM CHLORIDE 0.9% 100 ML IVPB PRN
[2021-07-14] MEDS: DEXAMETHASONE SOD PHOSPHATE 4 MG/ML 1 ML VIAL IV ONE ×3 (10:20→15:21)
[2021-07-14] MEDS: ONDANSETRON 4 MG/2 ML VIAL IVP ONE ×2 (10:20→15:21)
[2021-07-14] MEDS ORDERED: PROPOFOL 10 MG/ML 20 ML VIAL IV ONE (10:25)
[2021-07-14] MEDS ORDERED: SODIUM CHLORIDE 0.9% 100 ML BAG ONE (10:25)
[2021-07-14] MEDS ORDERED: GLYCOPYRROLATE 0.2 MG/ML 2 ML VIAL ONE (10:25)
[2021-07-14] MEDS ORDERED: MIDAZOLAM 2 MG/2 ML VIAL ONE (10:25)
[2021-07-14] MEDS ORDERED: SUCCINYLCHOLINE CHLORIDE 100 MG/5 ML SYR IV ONE (10:25)
[2021-07-14] MEDS ORDERED: LIDOCAINE 1% INJ 10MG/ML (20 ML MDV) ONE (10:25)
[2021-07-14] MEDS ORDERED: ROCURONIUM 10 MG/ML (5 ML VIAL) IV ONE (10:25)
[2021-07-14] MEDS ORDERED: TRANEXAMIC ACID 1,000 MG/10 ML VIAL ONE (10:25)
[2021-07-14] MEDS ORDERED: fentaNYL (PF) 50 MCG/ML 2 ML AMP ONE (10:25)
[2021-07-14] MEDS ORDERED: NEOSTIGMINE 1 MG/ML 10 ML VIAL ONE (10:25)
[2021-07-14] MEDS ORDERED: ONDANSETRON 4 MG/2 ML VIAL IVP ONE (10:27)
[2021-07-14] MEDS ORDERED: BUPIVACAINE (PF) 0.5% 30 ML VIAL SQ ONE (10:30)
[2021-07-14 10:34] LABS: Basophils # (A) 0.1 k/uL (0-0.2); Basophils % (A) 1 %; Eosinophils # (A) 0.2 k/uL (0-0.7); Eosinophils % (A) 2 %; HCT 33.2 % (34.0-46.0); Hypochromasia Slight; Lymphocytes # (A) 1.8 k/uL (1.0-4.8); Lymphocytes % (A) 22 %; MCH 30.2 pg (25.0-35.0); MCHC 33.2 g/dL (31.0-37.0); Mean Platelet Volume 7.1; Monocytes # (A) 0.4 k/uL (0-1.0); Monocytes % (A) 6 %; Neutrophils # (A) 5.4 k/uL (1.3-7.7); Neutrophils % (A) 69 %; Platelet Count 390 k/uL (150-450); RBC 3.65 m/uL (3.80-5.40); RDW 12.4 % (11.5-15.5); WBC 7.9 k/uL (3.8-10.6)
[2021-07-14 10:39] LABS: Prothrombin Time 10.8 sec (9.0-12.0)
[2021-07-14 10:44] LABS: African American GFR (CKD) >90 (>60 ml/min/1.73 sqM); Anion Gap 0 mmol/L; Blood Urea Nitrogen 15 mg/dL (7-17); Calcium 8.7 mg/dL (8.4-10.2); Carbon Dioxide 31 mmol/L (22-30); Chloride 105 mmol/L (98-107); Glucose 95 mg/dL (74-99); Non-African American GFR(CKD) >90 (>60 ml/min/1.73 sqM); Potassium 4.4 mmol/L (3.5-5.1); Sodium 136 mmol/L (137-145)
[2021-07-14] MEDS ORDERED: ceFAZolin 1,000 MG in SODIUM CHLORIDE 0.9% 1,000 ML IRRIGATION ONE (11:04)
[2021-07-14] MEDS ORDERED: LACTATED RINGERS 1,000 ML IV ONE (13:13)
[2021-07-14] MEDS ORDERED: HYDROcodone/APAP 5-325MG 1 EACH TAB PO PRN (13:15)
[2021-07-14] MEDS ORDERED: HYDROcodone/APAP 10-325MG 1 EACH TAB PO PRN (13:15)
[2021-07-14] MEDS ORDERED: MAGNESIUM HYDROXIDE 2,400 MG/10 ML CUP PO PRN (13:15)
[2021-07-14] MEDS ORDERED: NALOXONE 0.4 MG/ML 1 ML VIAL IV PRN (13:15)
[2021-07-14] MEDS ORDERED: HYDROmorphone 1 MG/ML 1 ML SYRINGE IVP PRN ×2 (13:15→13:20)
--- NOTE | 2021-07-14 13:39 | P.OP ---
Date of Procedure: 07/14/21 Preoperative Diagnosis: Right total hip arthroplasty instability Postoperative Diagnosis: Same Procedure(s) Performed: Right total hip arthroplasty revision of the femoral head and polyethylene components Implants: 1. Depuy pinnacle polyethylene constrained acetabular liner +4 neutral 32 mm ID 52 mm OD 2. Depuy metallic femoral head 32 mm +5 3. Depuy cancellous bone screw 6.5 mm x 20 mm Anesthesia: EKATERINAA, local Surgeon: Atif Blue Lead Case Manager #1: Jim Del Valle Estimated Blood Loss (ml): 150 Pathology: none sent Condition: stable Disposition: PACU Indications for Procedure: 61-year-old patient who had previous undergone direct anterior right total hip arthroplasty. She history of chronic low back issues and unfortunately has dislocated twice postoperatively. We discussed at this point revision of the polyethylene and femoral head components. I reviewed the procedure, risks, complications and recovery. Patient was agreeable and consent was obtained. Operative Findings: See description of procedure Description of Procedure: The patient was taken to the operative suite. She underwent a general anesthetic by the department of anesthesia. She was transferred to the [place] table. Both lower extremities were placed in standard spars. The right hip was prepped and draped in the normal sterile orthopedic fashion. She received preoperative IV antibiotics and TXA. I now made an incisional previous cicatrix sharply through skin. I dissected down to the fascia. I incised the fascia. Careful dissection down to the arthroplasty. Retractors were positioned. At this point I evaluated the construct appeared stable although patient again a dislocated twice postoperatively. I dislocated the hip. Additional some soft tissue laxity upon dislocated. This was consistent with her super 2 previous dislocations. At this point the femoral head was removed. I checked the femoral stem and it appeared stable and well fixated. I now checked the acetabular cup which appeared stable fixated. I went ahead and removed the polyethylene acetabular liner. I again checked the acetabular component appears stable. The wound was copiously irrigated with pulse lavage mechanical irrigation. I placed a trial constrained liner and a trial 32 mm +5 head and reduced. At this point we had good overall stability through good range of motion. I dislocated the hip and remove all trial components. I now placed our [place] pinnacle constrained polyethylene acetabular liner +4 neutral into the acetabular cup with assistance of Bala HATCH. Bala HATCH now assisted in seating of the polyethylene liner.. I now placed a 32 mm +5 head and tapped into position. I now with the assistance of Bala HATCH reduce the hip. After we reduced the hip and I did note that that reduction caused some of that acetabular anterior liner to break off. The defect measured about 7 or 8 mm. I checked the hip for intraoperative stability and remained stable. I now with assistance of Bala Del Valle tried to clip on the outer metal ring along her constrained acetabular component. Secondary to the anterior polyethylene rim breaking off the polyethylene rim and was now deformed. I now made several attempts and spent over half hour with the assistance of Bala HATCH trying to somehow someway secure that metallic clip. I tried multiple techniques and multiple approaches. I tried releasing some of soft tissue for better access. I again spent over half hour trying to secure that metallic ring over the periphery of the polyethylene I could not achieve that. At this point I dislocated the hip removed and remove the metallic ring. I now with the assistance of Bala HATCH reduce the hip. I checked intraoperatively was very stable. I again noted stable the defect along the anterior polyethylene area. The polyethylene did however appear to remain stable.. I decided this point to accept this construct as removing the constrained liner could possibly jeopardize the well fixed acetabular component. I now brought the C-arm into the operative field and evaluated the construct appeared stable. Intraoperative spot films were obtained. The C-arm was pulled back. The wound was irrigated copiously with pulse lavage mechanical irrigation. The fascia was repaired with #1 Vicryl. The subcu subcutaneous tissues were repaired with 2-0 Vicryl. The skin was approximated with nylon suture. Sterile dressings were applied. The patient was now awakened and transferred to recovery stable condition. Neck branch assisted procedure. Her prognosis is remained guarded given her comorbidities and history of noncompliance.
--- NOTE | 2021-07-14 13:58 | XR ---
EXAMINATION TYPE: XR Hip Limited RT DATE OF EXAM: 07/14/2021 COMPARISON: NONE HISTORY: Postop TECHNIQUE: One view submitted. FINDINGS: There is postsurgical change in near anatomic alignment. There is soft tissue edema and emphysema. IMPRESSION: 1. Postoperative change. Appears in near-anatomic alignment.
--- NOTE | 2021-07-14 13:58 | FL ---
EXAMINATION TYPE: FL guidance operating room DATE OF EXAM: 07/14/2021 HISTORY: Fluoroscopy time 8 seconds of fluoroscopy provided. IMPRESSION: 1. Fluoroscopy time.
[2021-07-14] MEDS: HYDROmorphone 0.5 MG/0.5 ML SYRINGE IVP PRN ×3 (14:37→14:54)
[2021-07-14 15:34] VITALS: RESP 18
[2021-07-14 19:56] VITALS: BP 118/75; PULSE 85; TEMP 97.7
[2021-07-14] MEDS ORDERED: SENNOSIDES-DOCUSATE SODIUM 1 EACH TAB PO SCH (21:00)
--- NOTE | 2021-07-14 21:31 | P.PN ---
Progress Note - Text Progress Note Date: 07/14/21 Patient underwent a revision right total hip arthroplasty earlier today. Plan was for admission to medical surgical floor for observation for 1-2 days. I was contacted by the nursing staff around 8:30pm, patient states she wants to leave AMA because she would be more comfortable at home. I asked to speak with the patient directly, and the patient would not speak with me over the phone. She was made aware of the risk leaving AMA, multiple attempts were made by nursing to persuade patient to remain in office. She refused and signed out AMA. Our office will contact patient tomorrow to schedule follow up.
--- NOTE | 2021-07-14 21:36 | CONS ---
CONSULTATION CHIEF COMPLAINT: Subluxation of the right hip prosthesis. HISTORY OF PRESENT ILLNESS: This lady was brought back in for definitive procedure on the right hip. She had a right hip replacement and it subluxed twice. Other than that, she is fairly healthy. She does smoke heavily. REVIEW OF SYSTEMS: Otherwise unremarkable. She has had no fever, chills, chest pain, syncope, abdominal pain, nausea, vomiting, hematemesis, melena, hematochezia, dysuria, frequency, urgency, hematuria, etc. Past medical history, family history, and personal and social histories are all unchanged from her recent admitting and discharge summaries. PHYSICAL EXAMINATION: Blood pressure is 142/89 with a pulse of 90, respirations of 36, and she is afebrile. In general she appeared to be well developed, well nourished, in no acute distress. Skin was dry. Head, ears, eyes, nose, mouth and throat were normal other than her abnormal eye. Neck was supple. Neck veins were not distended. Chest was clear. Cardiac exam demonstrated normal sinus rhythm and no murmurs or extra sounds. The abdomen was soft and nontender without any visceromegaly or masses. Bowel sounds present. Extremities normal. Neurologically she is intact. IMPRESSION: 1. Frequent subluxation of right hip prosthesis. 2. Chronic obstructive pulmonary disease. 3. Hypertension. RECOMMENDATIONS: None at this time. She is currently medically stable. Thank you. Respectfully, Freddy Hernandez II, M.D. RAMO / RANDA: [phone] /
[2021-07-15] MEDS ORDERED: ENOXAPARIN 40 MG/0.4 ML SYRINGE SQ SCH (09:00)
== END 2021-07-14 20:28 | disposition left against medical advice (07) | DRG 468 ==
LOC: 2ORMAIN 09:15 → 4SSUR 13:24
PROVIDERS: ADMIT Orthopaedic Surgery; ATTEND Orthopaedic Surgery
PROC: 0SRR01Z Replacement of Right Hip Joint, Femoral Surface with Metal Synthetic Substitute, Open Approach (ICD-10-PCS; 2021-07-14)
PROC: 0SP909Z Removal of Liner from Right Hip Joint, Open Approach (ICD-10-PCS; 2021-07-14)
PROC: 0SUA09Z Supplement Right Hip Joint, Acetabular Surface with Liner, Open Approach (ICD-10-PCS; 2021-07-14)
PROC: 8E0YXBF Computer Assisted Procedure of Lower Extremity, With Fluoroscopy (ICD-10-PCS; 2021-07-14)
PROC: 0SPR0JZ Removal of Synthetic Substitute from Right Hip Joint, Femoral Surface, Open Approach (ICD-10-PCS; principal; 2021-07-14 10:00)
DX: T84.020A Dislocation of internal right hip prosthesis, initial encounter (principal); G89.29 Other chronic pain; I10 Essential (primary) hypertension; F17.210 Nicotine dependence, cigarettes, uncomplicated; J44.9 Chronic obstructive pulmonary disease, unspecified; M54.50 Low back pain, unspecified; F32.A Depression, unspecified; Y79.2 Prosthetic and other implants, materials and accessory orthopedic devices associated with adverse incidents; Z79.891 Long term (current) use of opiate analgesic; Z88.5 Allergy status to narcotic agent
CPT/HCPCS: 73501; 80048; 85025; 85610; 86850; 86870; 86880; 86900; 86901

== ENCOUNTER 2021-10-22 17:03 | Emergency (ER) | payer MEDICARE ==
[2021-10-22] MEDS ORDERED: ALPRAZolam 0.25 MG TAB PO STA (19:36)
[2021-10-22] MEDS ORDERED: LIDOCAINE 1% INJ 10MG/ML (5 ML VIAL-PF) SQ ONE (19:37)
--- NOTE | 2021-10-22 19:48 | ED ---
Skin/Abscess/FB HPI - General Chief complaint: Skin/Abscess/Foreign Body Stated complaint: Abscess/Sent by PCP Time Seen by Provider: 10/22/21 19:31 Source: patient Mode of arrival: ambulatory Limitations: no limitations - History of Present Illness Initial comments: Patient is a 61-year-old female presenting with chief complaint of abscess. Patient has had an abscess near the gluteal cleft for about one week, it has been growing in size and has become increasingly more painful. Patient has had one abscess under the left arm in the past, she has no history of recurrent abscesses to this area. Patient has a history of MRSA with her previous abscess, patient is concerned that this abscess may also be due to MRSA. She denies any fever, chills, nausea, vomiting, chest pain, shortness of breath, back pain, abdominal pain. - Related Data Home Medications Medication Instructions Recorded Confirmed ALPRAZolam [Xanax] 2 mg PO BID PRN 12/20/19 07/14/21 HYDROcodone/APAP 10-325MG [[place] 1 tab PO QID PRN 12/20/19 07/14/21 10-325] Ergocalciferol [Vitamin D2 (1250 1,250 mcg PO Q30D 07/06/21 07/14/21 Mcg = 77405 Iu)] Previous Rx's Medication Instructions Recorded Sulfamethox-Tmp 800-160Mg [Bactrim 1 tab PO Q12HR 7 Days #14 tab 10/22/21 DS 800-160 mg] Allergies Allergy/AdvReac Type Severity Reaction Status Date / Time morphine AdvReac Hallucinati Verified 10/22/21 17:21 ons Review of Systems ROS Statement: Those systems with pertinent positive or pertinent negative responses have been documented in the HPI. ROS Other: All systems not noted in ROS Statement are negative. Past Medical History Past Medical History: CVA/TIA, Eye Disorder, Hypertension, Liver Disease, Osteoarthritis (OA) Additional Past Medical History / Comment(s): Right hip dislocations, osteoarthritis right hip, past cervical and low back fractures as well as past right elbow fracture, chronic pain, 20 yrs ago - CVA per MRI/no residuals, Hepatitis C. 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 History of Any Multi-Drug Resistant Organisms: MRSA Date of last positivie culture/infection: 03/01/20 MDRO Source:: Left Axilla Past Surgical History: Joint Replacement, Orthopedic Surgery Additional Past Surgical History / Comment(s): 06/30/21 right hip closed reduction, right hip replacement, right middle finger debra release, EGD, colonscopy, 3 facial reconstruction surgeries. Past Anesthesia/Blood Transfusion Reactions: No Reported Reaction Past Psychological History: Anxiety, PTSD Smoking Status: Current every day smoker Past Alcohol Use History: None Reported Past Drug Use History: Marijuana - Past Family History Mother Family Medical History: No Reported History Father Family Medical History: Hypertension Additional Family Medical History / Comment(s): Alcoholic. General Exam Limitations: no limitations General appearance: alert, in no apparent distress Head exam: Present: atraumatic, normocephalic, normal inspection Eye exam: Present: normal appearance, EOMI. Absent: scleral icterus, periorbital swelling Neck exam: Present: normal inspection Respiratory exam: Present: normal lung sounds bilaterally. Absent: respiratory distress, wheezes, rales, rhonchi, stridor Cardiovascular Exam: Present: regular rate, normal rhythm, normal heart sounds. Absent: systolic murmur, diastolic murmur, rubs, gallop, clicks Back exam: Present: normal inspection Neurological exam: Present: alert, oriented X3, CN II-XII intact Psychiatric exam: Present: normal affect, normal mood Skin exam: Present: warm, dry, intact Expanded Type of lesion: Present: abscess (Located on the left side of the gluteal cleft) Course Vital Signs 10/22/21 10/22/21 17:15 20:12 Temperature 98.8 F Pulse Rate 91 85 Respiratory 18 18 Rate Blood Pressure 123/69 105/74 O2 Sat by Pulse 98 99 Oximetry Medical Decision Making - Medical Decision Making Patient is a 61-year-old female presenting with chief complaint of abscess. Patient has an abscess to the left gluteal that has been there for the past week. It is increasing in size and pain. She has a history of MRSA from an abscess under the left arm. On examination there is a 4 x 4 centimeter area of induration with a small white head. The area was anesthetized with 1% lidocaine I attempted to drain it, however was unable to express any drainage after incising, only blood was expressed. Patient was placed on Bactrim and is instructed to utilize hot compresses. Follow-up with PCP in one to 2 days. Report back to ER with any new or worsening symptoms. I discussed return parameters alarm symptoms. I answered all questions. Patient conveyed verbal understanding and agreed to the plan. My attending is Dr. Shipley Disposition Clinical Impression: Abscess Disposition: HOME SELF-CARE Condition: Good Instructions (If sedation given, give patient instructions): Abscess Incision and Drainage (ED), Abscess (ED) Additional Instructions: Take medication as prescribed. Utilize warm compresses over the area to draw infection to the surface to be expressed. Follow-up with PCP in one to 2 days. Report back to ER with any new or worsening symptoms. Prescriptions: Sulfamethox-Tmp 800-160Mg [Bactrim DS 800-160 mg] 1 tab PO Q12HR 7 Days #14 tab Is patient prescribed a controlled substance at d/c from ED?: No Referrals: Freddy Hernandez MD [Primary Care Provider] - 1-2 days Time of Disposition: 20:06
[2021-10-22 19:59] VITALS: RESP 18; TEMP 98.8
[2021-10-22] MEDS ORDERED: SULFAMETHOX-TMP 800-160MG 1 EACH TAB PO STA (20:03)
[2021-10-22 20:13] VITALS: BP 105/74; PULSE 85
== END 2021-10-22 20:17 | disposition home or self-care (01) ==
LOC: EC 17:03
DX: L02.31 Cutaneous abscess of buttock (principal); I10 Essential (primary) hypertension; F41.9 Anxiety disorder, unspecified; M16.11 Unilateral primary osteoarthritis, right hip; Z86.73 Personal history of transient ischemic attack (TIA), and cerebral infarction without residual deficits; F17.200 Nicotine dependence, unspecified, uncomplicated; F12.90 Cannabis use, unspecified, uncomplicated; Z79.899 Other long term (current) drug therapy
CPT/HCPCS: 99282; 10060; J2001

== ENCOUNTER 2021-11-27 11:30 | Observation (INO) | payer MEDICARE ==
[2021-11-27] MEDS ORDERED: HYDROmorphone 0.5 MG/0.5 ML SYRINGE IVP STA (11:35)
--- NOTE | 2021-11-27 12:01 | XR ---
EXAMINATION TYPE: XR pelvis AP view DATE OF EXAM: 11/27/2021 COMPARISON: NONE HISTORY: Pain FINDINGS: There is a posterior dislocation of the right femoral prostheses. Diffuse osteopenia. Arthropathy of the left hip. No definite acute fracture is hypertrophic degenerative change of the lower lumbar spin e IMPRESSION: 1. Posterior right hip dislocation.
[2021-11-27 12:25] LABS: Anisocytosis Slight; Basophils % (A) 0 %; Eosinophils # (A) 0.1 k/uL (0-0.7); Eosinophils % (A) 1 %; HCT 32.6 % (34.0-46.0); HGB 10.1 gm/dL (11.4-16.0); Hypochromasia Marked; Lymphocytes # (A) 2.4 k/uL (1.0-4.8); Lymphocytes % (A) 26 %; MCH 23.5 pg (25.0-35.0); MCHC 31.1 g/dL (31.0-37.0); MCV 75.3 fL (80.0-100.0); Mean Platelet Volume 7.1; Microcytosis Moderate; Monocytes # (A) 0.5 k/uL (0-1.0); Monocytes % (A) 5 %; Neutrophils # (A) 6.1 k/uL (1.3-7.7); Neutrophils % (A) 66 %; Platelet Count 418 k/uL (150-450); RBC 4.32 m/uL (3.80-5.40); RDW 17.9 % (11.5-15.5); WBC 9.2 k/uL (3.8-10.6)
[2021-11-27] MEDS ORDERED: NALOXONE 0.4 MG/ML 1 ML VIAL IV PRN (12:30)
[2021-11-27] MEDS ORDERED: LORazepam 2 MG/ML INJ IV STA (12:33)
[2021-11-27 12:34] LABS: ALT 8 U/L (4-34); AST 27 U/L (14-36); African American GFR (CKD) >90 (>60 ml/min/1.73 sqM); Albumin 3.9 g/dL (3.5-5.0); Alkaline Phosphatase 59 U/L (38-126); Anion Gap 6 mmol/L; Blood Urea Nitrogen 12 mg/dL (7-17); Calcium 8.7 mg/dL (8.4-10.2); Carbon Dioxide 28 mmol/L (22-30); Chloride 103 mmol/L (98-107); Glucose 76 mg/dL (74-99); Non-African American GFR(CKD) >90 (>60 ml/min/1.73 sqM); Sodium 137 mmol/L (137-145); Total Bilirubin 0.5 mg/dL (0.2-1.3); Total Protein 7.2 g/dL (6.3-8.2)
[2021-11-27] MEDS ORDERED: SODIUM CHLORIDE 0.9% 1,000 ML IV STA (12:34)
[2021-11-27 12:35] LABS: Potassium 4.5 mmol/L (3.5-5.1)
--- NOTE | 2021-11-27 12:40 | ED ---
General Adult HPI - General Chief complaint: Extremity Injury, Lower Stated complaint: Right Hip Injury Time Seen by Provider: 11/27/21 11:32 Source: patient, RN notes reviewed, old records reviewed Mode of arrival: EMS - History of Present Illness Initial comments: Patient is a 61-year-old female with past medical history remarkable for right hip replacement, anxiety, hypertension, with recurrent right hip dislocations presents emergency Department complaining of right hip dislocation. Patient was on her hands and knees cleaning when she felt her right hip give out. She called EMS and came here for further evaluation. This is the third time it is dislocated since May per patient. They have attempted to reduce it here in the department but have been unsuccessful. She is requesting a reduction which she has required in the past. Patient's surgeon is Dr. Potter. She denies any sensory deficits. Denies any strength deficits. His no other acute complaints at this time. Presents for further evaluation and seeking reduction of right hip. - Related Data Home Medications Medication Instructions Recorded Confirmed ALPRAZolam [Xanax] 2 mg PO BID PRN 12/20/19 11/27/21 HYDROcodone/APAP 10-325MG [[place] 1 tab PO QID PRN 12/20/19 11/27/21 10-325] Atorvastatin Calcium [Lipitor] 40 mg PO DAILY 11/27/21 11/27/21 Losartan [Cozaar] 25 mg PO DAILY 11/27/21 11/27/21 metFORMIN HCL [Glucophage] 500 mg PO DAILY 11/27/21 11/27/21 Allergies Allergy/AdvReac Type Severity Reaction Status Date / Time morphine AdvReac Hallucinati Verified 11/27/21 12:37 ons Review of Systems ROS Statement: Those systems with pertinent positive or pertinent negative responses have been documented in the HPI. Review of Systems: CONST: Denies fever EYES: Denies blurry vision ENT: Denies nasal congestion C/V: Denies Chest pain RESP: Denies shortness of breath GI: Denies abdominal pain : Denies dysuria SKIN: Denies rash. MSK: Endorses joint pain NEURO: Denies headache ROS Other: All systems not noted in ROS Statement are negative. Past Medical History Past Medical History: CVA/TIA, Diabetes Mellitus, Eye Disorder, Hypertension, Liver Disease, Osteoarthritis (OA) Additional Past Medical History / Comment(s): Right hip dislocations, osteoarthritis right hip, past cervical and low back fractures as well as past right elbow fracture, chronic pain, 20 yrs ago - CVA per MRI/no residuals, Hepatitis C. 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 daignosed with DM 10/29 History of Any Multi-Drug Resistant Organisms: MRSA Date of last positivie culture/infection: 03/01/20 MDRO Source:: Left Axilla Past Surgical History: Joint Replacement, Orthopedic Surgery Additional Past Surgical History / Comment(s): 06/30/21 right hip closed redu ction, right hip replacement, right middle finger debra release, EGD, colonscopy, 3 facial reconstruction surgeries. Past Anesthesia/Blood Transfusion Reactions: No Reported Reaction Past Psychological History: Anxiety, PTSD Smoking Status: Current every day smoker Past Alcohol Use History: None Reported Past Drug Use History: Marijuana - Past Family History Mother Family Medical History: No Reported History Father Family Medical History: Hypertension Additional Family Medical History / Comment(s): Alcoholic. General Exam - General Exam Comments Initial Comments: General: Appears in moderate to severe distress secondary to right hip pain. HEAD: Normal with no signs of head trauma. EYES: PERRLA, EOMI, conjunctiva normal, no discharge. Pupils are 3 mm and equal bilaterally. ENT: Hearing grossly intact, normal oropharynx. RESPIRATORY: Clear breath sounds bilaterally. No wheezes, rales, or rhonchi. C/V: Regular rate and rhythm. S1 and S2 auscultated, no edema, peripheral pulses 2+ and intact throughout ABD: Abd is soft, nontender, nondistended EXT: Shortening the right lower extremity. Right hip pain. Suspect dislocation. Neurovascular intact. SKIN: No rashes or lesions observed on exposed skin. NEURO: Alert and oriented x 4. Cranial nerves II-XII intact. No focal sensory or strength deficits. Neurovascular intact throughout. Right lower extremity weakness secondary to pain secondary to right hip dislocation. Course Vital Signs 11/27/21 11:32 Temperature 98.3 F Pulse Rate 79 Respiratory 18 Rate Blood Pressure 122/89 O2 Sat by Pulse 100 Oximetry Medical Decision Making - Medical Decision Making Based on patient's presentation and physical exam, the patient she suffered a right hip dislocation. Attempts in the emergency department to reduce the patient's right hip has been unsuccessful in the past. She has required or reduction. She is requesting that at this time. Patient was given analgesia. Pelvic x-ray shows right posterior hip dislocation. After the patient. I spoke with her surgeon, Dr. Potter who was in agreement with the plan for OR reduction. Patient remains nothing by mouth. She has not eaten this morning. I treated the patient she was in agreement this plan. Patient will be admitted under Dr. potter to observation, and will be discharged to the operating room. Patient was in agreement this plan. Basic labs were ordered. Patient was therefore admitted in stable condition. She'll be discharged operating room for hip reduction. - Lab Data Result diagrams: 11/27/21 12:16 11/27/21 12:16 Lab Results 11/27/21 11/27/21 Range/Units 12:16 12:16 WBC 9.2 (3.8-10.6) k/uL RBC 4.32 (3.80-5.40) m/uL Hgb 10.1 L (11.4-16.0) gm/dL Hct 32.6 L (34.0-46.0) % MCV 75.3 L (80.0-100.0) fL MCH 23.5 L (25.0-35.0) pg MCHC 31.1 (31.0-37.0) g/dL RDW 17.9 H (11.5-15.5) % Plt Count 418 (150-450) k/uL MPV 7.1 Neutrophils % 66 % Lymphocytes % 26 % Monocytes % 5 % Eosinophils % 1 % Basophils % 0 % Neutrophils # 6.1 (1.3-7.7) k/uL Lymphocytes # 2.4 (1.0-4.8) k/uL Monocytes # 0.5 (0-1.0) k/uL Eosinophils # 0.1 (0-0.7) k/uL Basophils # 0.0 (0-0.2) k/uL Hypochromasia Marked Anisocytosis Slight Microcytosis Moderate Sodium 137 (137-145) mmol/L Potassium 4.5 (3.5-5.1) mmol/L Chloride 103 (98-107) mmol/L Carbon Dioxide 28 (22-30) mmol/L Anion Gap 6 mmol/L BUN 12 (7-17) mg/dL Creatinine 0.53 (0.52-1.04) mg/dL Est GFR (CKD-EPI)AfAm >90 (>60 ml/min/1.73 sqM) Est GFR (CKD-EPI)NonAf >90 (>60 ml/min/1.73 sqM) Glucose 76 (74-99) mg/dL Calcium 8.7 (8.4-10.2) mg/dL Total Bilirubin 0.5 (0.2-1.3) mg/dL AST 27 (14-36) U/L ALT 8 (4-34) U/L Alkaline Phosphatase 59 (38-126) U/L Total Protein 7.2 (6.3-8.2) g/dL Albumin 3.9 (3.5-5.0) g/dL Disposition Clinical Impression: Hip dislocation, right Disposition: ADMITTED IP TO THIS [facility] Condition: Stable Time of Disposition: 12:30
[2021-11-27] MEDS: HYDROmorphone 0.5 MG/0.5 ML SYRINGE IVP PRN ×3 (12:44→17:21)
[2021-11-27] MEDS ORDERED: HYDROcodone/APAP 10-325MG 1 EACH TAB PO PRN (14:21)
[2021-11-27] MEDS ORDERED: ALPRAZolam 1 MG TAB PO PRN (14:21)
[2021-11-27] MEDS ORDERED: SODIUM CHLORIDE 0.9% 1,000 ML IV ONE (14:59)
[2021-11-27] MEDS ORDERED: PHENYLEPHRINE-0.9% NACL SYG 1,000 MCG/10 ML SYRINGE ONE (15:13)
[2021-11-27] MEDS ORDERED: SUCCINYLCHOLINE CHLORIDE 100 MG/5 ML SYR IV ONE (15:13)
[2021-11-27] MEDS ORDERED: PROPOFOL 10 MG/ML 20 ML VIAL IV ONE (15:13)
[2021-11-27] MEDS ORDERED: fentaNYL (PF) 50 MCG/ML 2 ML AMP ONE (15:13)
[2021-11-27] MEDS ORDERED: MIDAZOLAM 2 MG/2 ML VIAL ONE (15:13)
[2021-11-27] MEDS ORDERED: ONDANSETRON 4 MG/2 ML VIAL ONE (15:14)
[2021-11-27] MEDS ORDERED: ONDANSETRON 4 MG/2 ML VIAL IVP ONE (15:14)
--- NOTE | 2021-11-27 15:20 | P.HPOR ---
History of Present Illness H&P Date: 11/27/21 Chief Complaint: Right periprosthetic hip dislocation Patient is a 61-year-old female who presented to [facility] emergency room for evaluation of her right lower extremity injury. Patient was apparently on her hands and knees cleaning under bed when she felt her hip dislocate. She was unable to weight bear after the incident. EMS was contacted and brought patient to the hospital. Current to the hospital, imaging test demonstrated the dislocation of the prosthetic hip on the right-hand side. Patient has a previous history of a direct anterior total hip arthroplasty that was done in May 2021. She had subsequent dislocation events in June 2021 where she underwent to close reduction procedures. After the second dislocation, patient was scheduled for a revision procedure on the right hip for July 2021. Since the most recent procedure, patient has done very well and had no issues with dislocating. Our orthopedic service was contacted by the emergency room staff, the case was discussed with Dr. Blue. Patient was admitted under orthopedic care with plan for a closed reduction. Patient was evaluated today at bedside in the preoperative area, she is resting comfortably. She notes discomfort in the right hip with movement. She denies any numbness or tingling in the lower extremity. She denies any pain involving the knee, lower leg, foot or ankle. She denies any recent traumatic events, this including falls. She denies headaches, lightheadedness, chest pain or shortness of breath. 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 Past Anesthesia/Blood Transfusion Reactions: No Reported Reaction Past Psychological History: Anxiety, PTSD Additional Psychological History / Comment(s): Pt resides with significant other and her cousin. Pt doesn't drive, she has 2 people she can pay to drive her places. She is otherwise independent. Smoking Status: Current every day smoker Past Alcohol Use History: None Reported Additional Past Alcohol Use History / Comment(s): Pt started smoking in 2013 and smokes between 1-2 ppd. Past Drug Use History: Marijuana Additional Drug Use History / Comment(s): Smokes or uses edibles occasionally. - Past Family History Mother Family Medical History: No Reported History Father Family Medical History: Hypertension Additional Family Medical History / Comment(s): Alcoholic. Medications and Allergies Home Medications Medication Instructions Recorded Confirmed Type ALPRAZolam [Xanax] 2 mg PO BID PRN 12/20/19 11/27/21 History HYDROcodone/APAP 10-325MG [[place] 1 tab PO QID PRN 12/20/19 11/27/21 History 10-325] Atorvastatin Calcium [Lipitor] 40 mg PO DAILY 11/27/21 11/27/21 History Losartan [Cozaar] 25 mg PO DAILY 11/27/21 11/27/21 History metFORMIN HCL [Glucophage] 500 mg PO DAILY 11/27/21 11/27/21 History Allergies Allergy/AdvReac Type Severity Reaction Status Date / Time morphine AdvReac Hallucinati Verified 11/27/21 12:37 ons Physical Examination Right lower extremity: Shortening and internal rotation of the extremity is noted compared to the contralateral side Well-healed incision with a proximal anterior thigh, no erythema noted or areas of fluctuance Patient demonstrates obvious tenderness with palpation of the proximal lateral thigh. She is nontender with palpation surrounding the knee, lower leg, foot or ankle Range of motion of the hip was not assessed due to pain, extension and flexion were intact at the knee, plantarflexion, dorsiflexion, EHL, FHL are intact Calf is soft, no tenderness Sensory exam to light touch is intact without extremity Dorsalis pedis pulses 2+ Results - Labs Labs: Abnormal Lab Results - Last 24 Hours (Table) 11/27/21 Range/Units 12:16 Hgb 10.1 L (11.4-16.0) gm/dL Hct 32.6 L (34.0-46.0) % MCV 75.3 L (80.0-100.0) fL MCH 23.5 L (25.0-35.0) pg RDW 17.9 H (11.5-15.5) % H & H 11/27/21 Range/Units 12:16 Hgb 10.1 L (11.4-16.0) gm/dL Hct 32.6 L (34.0-46.0) % Result Diagrams: 11/27/21 12:16 11/27/21 12:16 - Diagnostic results Hip x-ray: report reviewed, image reviewed (X-rays were reviewed of the pelvis/right hip. Images demonstrate obvious dislocation of the right. Both the acetabular and femoral component appears stable with no obvious lucencies. ) Assessment and Plan Assessment: Right periprosthetic hip dislocation History of previous right hip periprosthetic hip dislocation History of direct anterior right total hip arthroplasty with revision Other medical comorbidities Plan: Patient was kept nothing by mouth upon arrival to the hospital. Patient was boarded for a closed reduction of right periprosthetic hip dislocation for 11/27/2021 Risk and benefits of the procedure were discussed with the patient, she is in good understanding would like to proceed. Obtain consent for procedure We did discuss with the patient today at bedside with this most recent dislocation after her revision surgery, she will require an additional surgery. She was also made aware that there is a possibility that it may not relocate with the closed procedure today. Patient was notified that we would facilitate transfer to a tertiary care facility for a revision procedure. Further recommendations to follow Time with Patient: Less than 30
--- NOTE | 2021-11-27 15:57 | P.OP ---
Date of Procedure: 11/27/21 Preoperative Diagnosis: Right hip prosthetic dislocation Postoperative Diagnosis: Right hip prosthetic dislocation Procedure(s) Performed: Closed reduction right hip Anesthesia: RED Surgeon: Atif Blue Estimated Blood Loss (ml): 0 Pathology: none sent Condition: stable Disposition: PACU Indications for Procedure: 61-year-old patient who is seen with a prosthetic hip dislocation. I discussed closed reduction. Patient was agreeable. Consent was obtained. Operative Findings: See description of procedure Description of Procedure: Patient was taken to the operative suite. She underwent a general anesthetic by the department of anesthesia. She was [facility]. Both extremities were placed in standard boots and in the spars. The C-arm was brought into the operative field. We noted a complete dislocation of the prosthetic hip. There not appear to be an associated fracture. Under direct fluoroscopic visualization a closed reduction was performed. It appeared that we had a good reduction. The patient was placed into a abduction pillow. The patient was awakened and transferred to recovery stable condition. This is the third dislocation from the patient after having a revision performed. I did review with her preoperatively that the plan would be to reduce the hip and transferred to a reconstructive specialist for probable revision.
[2021-11-27] MEDS ORDERED: HYDROmorphone 1 MG/ML 1 ML SYRINGE IVP PRN (16:16)
[2021-11-27 16:24] LABS: Glucose,Whole Blood 97 mg/dL (70-110)
--- NOTE | 2021-11-27 16:31 | P.DS ---
Providers Date of admission: 11/27/21 12:32 Expected date of discharge: 11/27/21 Attending physician: Atif Blue Primary care physician: Freddy Hernandez Hospital Course: Date of admission: 11/28/2019 Date of discharge: Same Admission diagnosis: Right periprosthetic hip dislocation Discharge diagnosis: Same, status post closed reduction right hip Attending physician: Dr. Blue Surgical procedures: Closed reduction right periprosthetic hip dislocation Brief history: Patient is a 61-year-old female with a history of a previous direct anterior right total hip arthroplasty. Shortly after surgery patient did periprosthetic hip dislocation, she underwent a successful closed reduction. She then this a second time and underwent a closed reduction. After the second dislocation/reduction, patient was scheduled for a revision surgery. Patient underwent a revision surgery in July 2021, she had been doing very well. She presented to the hospital on 11/27/2021 after dislocating her hip while cleaning under her bed. Patient was with plan for attempted closed reduction procedure. A long discussion was had with the patient prior to the procedure that we would be transferring patient to a tertiary care facility for a likely revision surgery. Hospital course: Details of patient's surgery can be found in operative report. Patient tolerated the procedure well and was subsequently transported to orthopedic floor. I was able to discuss this case with Dr. Beny Downey orthopedic Traumatologist [facility]. We were provided with a phone number for a direct transfer to the hospital, I was able to start that process in proper information. Once available, patient will be transferred to [facility] for further evaluation/treatment. Discharge condition/disposition: Patient will be transferred to [facility] stable condition Discharge medications: Instructions are given on resumption of patient's normal daily medications per primary care recommendation, in addition patient will be prescribed no new medications Procedures: Closed reduction right periprosthetic hip dislocation Patient Condition at Discharge: Stable Plan - Discharge Summary Discharge Rx Participant: No New Discharge Prescriptions: No Action ALPRAZolam [Xanax] 2 mg PO BID PRN PRN Reason: Anxiety HYDROcodone/APAP 10-325MG [[place] 10-325] 1 tab PO QID PRN PRN Reason: Pain metFORMIN HCL [Glucophage] 500 mg PO DAILY Losartan [Cozaar] 25 mg PO DAILY Atorvastatin Calcium [Lipitor] 40 mg PO DAILY Discharge Medication List ALPRAZolam [Xanax] 2 mg PO BID PRN 12/20/19 [History] HYDROcodone/APAP 10-325MG [[place] 10-325] 1 tab PO QID PRN 12/20/19 [History] Atorvastatin Calcium [Lipitor] 40 mg PO DAILY 11/27/21 [History] Losartan [Cozaar] 25 mg PO DAILY 11/27/21 [History] metFORMIN HCL [Glucophage] 500 mg PO DAILY 11/27/21 [History] Follow up Appointment(s)/Referral(s): Freddy Hernandez MD [Primary Care Provider] - 1-2 days Discharge Disposition: DC/TRNS INTERMEDIATE CARE FAC
--- NOTE | 2021-11-27 16:32 | FL ---
Intraoperative/procedural fluoroscopic services were provided. Total fluoroscopy time is 44.0 seconds with a total of 1 submitted images to PACS. Please see the operative/procedural note for further det ails.
[2021-11-27 18:57] VITALS: RESP 18; TEMP 97.5
[2021-11-27 18:58] VITALS: BP 101/67; PULSE 68
[2021-11-28] MEDS ORDERED: LOSARTAN 25 MG TAB PO SCH (09:00)
== END 2021-11-27 19:38 | disposition left against medical advice (07) ==
LOC: EC 11:30 → INTOOBSV 12:32 → 4SSUR 12:32 → UNDODISIN 19:38
PROVIDERS: ADMIT Orthopaedic Surgery; ATTEND Orthopaedic Surgery
PROC: 8E0YXBG Computer Assisted Procedure of Lower Extremity, With Computerized Tomography (ICD-10-PCS; 2021-11-27)
PROC: 0SS9XZZ Reposition Right Hip Joint, External Approach (ICD-10-PCS; principal; 2021-11-27 09:45)
DX: M24.451 Recurrent dislocation, right hip (principal); T84.020A Dislocation of internal right hip prosthesis, initial encounter; E11.9 Type 2 diabetes mellitus without complications; I10 Essential (primary) hypertension; F43.10 Post-traumatic stress disorder, unspecified; F41.9 Anxiety disorder, unspecified; M16.11 Unilateral primary osteoarthritis, right hip; H54.62 Unqualified visual loss, left eye, normal vision right eye; B19.20 Unspecified viral hepatitis C without hepatic coma; G89.29 Other chronic pain; F17.210 Nicotine dependence, cigarettes, uncomplicated; Z79.84 Long term (current) use of oral hypoglycemic drugs; Z79.899 Other long term (current) drug therapy; Z88.5 Allergy status to narcotic agent; Z86.14 Personal history of Methicillin resistant Staphylococcus aureus infection; Z86.73 Personal history of transient ischemic attack (TIA), and cerebral infarction without residual deficits; Z87.81 Personal history of (healed) traumatic fracture; Z98.890 Other specified postprocedural states; Y79.2 Prosthetic and other implants, materials and accessory orthopedic devices associated with adverse incidents; Z81.1 Family history of alcohol abuse and dependence; Z82.49 Family history of ischemic heart disease and other diseases of the circulatory system
CPT/HCPCS: 27266; 96376; 96374; 96375; 99285; 36415; 80053; 85025; 72170; 73501; G0378; J2250; J2060; J2405; J3010; J2370; J0330; J2704; J1170

== ENCOUNTER 2022-08-02 18:12 | Emergency (ER) | payer MEDICARE, OTHER ==
[2022-08-02] MEDS ORDERED: KETOROLAC 15 MG/ML 1 ML VIAL IM STA (18:30)
--- NOTE | 2022-08-02 19:23 | XR ---
EXAMINATION TYPE: XR Hip Complete RT DATE OF EXAM: 08/02/2022 COMPARISON: NONE HISTORY: Hip pain TECHNIQUE: 2 views FINDINGS: There is right hip prosthesis. Components appear intact. No fracture. Right sacroiliac join t is intact IMPRESSION: Negative right hip exam.
[2022-08-02] MEDS ORDERED: HYDROmorphone 0.5 MG/0.5 ML SYRINGE IM STA (19:29)
--- NOTE | 2022-08-02 19:34 | ED ---
Extremity Problem HPI - General Chief complaint: Extremity Problem,Nontraumatic Stated complaint: Right hip pain Time Seen by Provider: 08/02/22 18:20 Source: patient Mode of arrival: EMS - History of Present Illness Initial comments: Patient is a 62-year-old female presents to the emergency department with multiple complaints. Her first complaint is right hip pain. Patient had a hip replacement in May [address] Marino. Since the surgery patient has had recurrent dislocations some of which have required closed reduction. Patient takes [place] at home for chronic pain states she took 3 today with refractory pain. She states pain has been worse over the past few days patient feels that her hip is going to pop out of place again. She denies any injury she is able to walk around at home without limitation. She denies numbness and tingling. Denies leg weakness. Denies fever, chills, nausea, vomiting. Her other complaint is mice bite to her left index finger. She states she was bit by a mouse in her home yesterday. She denies any significant pain. States her primary care told her she needs a rabies shot. - Related Data Home Medications Medication Instructions Recorded Confirmed ALPRAZolam [Xanax] 2 mg PO BID PRN 12/20/19 11/27/21 HYDROcodone/APAP 10-325MG [[place] 1 tab PO QID PRN 12/20/19 11/27/21 10-325] Atorvastatin Calcium [Lipitor] 40 mg PO DAILY 11/27/21 11/27/21 Losartan [Cozaar] 25 mg PO DAILY 11/27/21 11/27/21 metFORMIN HCL [Glucophage] 500 mg PO DAILY 11/27/21 11/27/21 Allergies Allergy/AdvReac Type Severity Reaction Status Date / Time morphine AdvReac Hallucinati Verified 08/02/22 18:15 ons Review of Systems ROS Statement: Those systems with pertinent positive or pertinent negative responses have been documented in the HPI. ROS Other: All systems not noted in ROS Statement are negative. 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 Past Anesthesia/Blood Transfusion Reactions: No Reported Reaction Past Psychological History: Anxiety, PTSD Smoking Status: Current every day smoker Past Alcohol Use History: None Reported Past Drug Use History: Marijuana - Past Family History Mother Family Medical History: No Reported History Father Family Medical History: Hypertension Additional Family Medical History / Comment(s): Alcoholic. General Exam General appearance: alert, in no apparent distress Head exam: Present: atraumatic, normocephalic, normal inspection Eye exam: Present: normal appearance, PERRL, EOMI. Absent: scleral icterus, conjunctival injection, periorbital swelling Respiratory exam: Present: normal lung sounds bilaterally. Absent: respiratory distress, wheezes, rales, rhonchi, stridor Cardiovascular Exam: Present: regular rate, normal rhythm, normal heart sounds. Absent: systolic murmur, diastolic murmur, rubs, gallop, clicks Extremities exam: Present: other (abrasion 1 cm left index finger no puncture wound no erythema or swelling ) Right Hip exam: Present: normal inspection, full ROM, pelvic stability. Absent: tenderness, swelling, abrasion, laceration, ecchymosis, deformity, crepitus, dislocation, erythema, external rotation, internal rotation, shortening Upper Leg exam: Present: normal inspection, full ROM. Absent: tenderness, swelling Neurovascular tendon exam: Present: no vascular compromise Gait: observed and normal Course Vital Signs 08/02/22 08/02/22 08/02/22 18:13 18:25 20:08 Temperature 98.7 F 98.2 F 97.9 F Pulse Rate 62 79 80 Respiratory 16 14 16 Rate Blood Pressure 131/86 138/73 132/79 O2 Sat by Pulse 97 100 Oximetry Medical Decision Making - Medical Decision Making Was pt. sent in by a medical professional or institution (HOLDEN Perera, PAGEANT DIRECTOR, urgent care, hospital, or jail...) When possible be specific @ -[No] Did you speak to anyone other than the patient for history (EMS, parent, family, police, friend...)? What history was obtained from this source @ -[No] Did you review nursing and triage notes (agree or disagree)? Why? @ -[I reviewed and agree with nursing and triage notes] Were old charts reviewed (outside hosp., previous admission, EMS record, old EKG, old radiological studies, urgent care reports/EKG's, jail records)? Report findings @ -[No old charts were reviewed] Differential Diagnosis (chest pain, altered mental status, abdominal pain women, abdominal pain men, vaginal bleeding, weakness, fever, dyspnea, syncope, headache, dizziness, GI bleed, back pain, seizure, CVA, palpatations, mental health)? @ -Chronic hip pain, contusion, cellulitis, hip dislocation, hip fracture EKG by me (3pts min.). @ -[As above] X-rays interpreted by me (1pt min.). @ -Yes, right hip x-ray shows right hip prosthesis which appears intact. No fracture or dislocation CT interpreted by me (1pt min.). @ -[None done] U/S interpreted by me (1pt. min.). @ -[None done] What testing was considered but not performed or refused? (CT, X-rays, U/S, labs)? Why? @ -[None] What meds were considered but not given or refused? Why? @ -[None] Did you discuss the management of the patient with other professionals (professionals i.e. HOLDEN Perera, PAGEANT DIRECTOR, lab, RT, psych nurse, health and social care teacher, tester equipment, teacher, family preservation officer, caser shoe parts)? Give summary @ -[No] Was smoking cessation discussed for >3mins.? @ -[No] Was critical care preformed (if so, how long)? @ -[No] Were there social determinants of health that impacted care today? How? (Homelessness, low income, unemployed, alcoholism, drug addiction, transportation, low edu. Level, literacy, decrease access to med. care, intermediate, rehab)? @ -[No] Was there de-escalation of care discussed even if they declined (Discuss DNR or withdrawal of care, Hospice)? DNR status @ -[No] What co-morbidities impacted this encounter? (DM, HTN, Smoking, COPD, CAD, Cancer, CVA, ARF, Chemo, Hep., AIDS, mental health diagnosis, sleep apnea, morbid obesity)? @ -[None] Was patient admitted / discharged? Hospital course, mention meds given and route, prescriptions, significant lab abnormalities, going to OR and other pertinent info. @ -Patient presenting with multiple complaints. Physical exam of right hip unremarkable. It does not appear to be dislocated. Neurovascularly intact. X- ray shows prosthesis intact with no fracture or dislocation. Patient given Toradol shortly after she says she needs a stronger medication like Dilaudid. We discussed risk of narcotic use patient adamant that she has severe pain we agreed on 1 dose with the understanding that patient cannot continue to come to the ER for chronic pain she will need to follow-up with Dr. Blue. Patient did report mouse bite however I do not see puncture wound. Patient has small abrasion to her index finger. [facility] does not recommend rabies vaccine for rodent bites. Unable to find [facility] guidelines. Patient instructed to call the [facility] department tomorrow for further instruction. Undiagnosed new problem with uncertain prognosis? @ -[No] Drug Therapy requiring intensive monitoring for toxicity (Heparin, Nitro, Insulin, Cardizem)? @ -[No] Were any procedures done? @ -[No] Diagnosis/symptom? @ -right hip pain Acute, or Chronic, or Acute on Chronic? @ -acute Uncomplicated (without systemic symptoms) or Complicated (systemic symptoms)? @ uncomplicated Side effects of treatment? @ -[No] Exacerbation, Progression, or Severe Exacerbation? @ -[No] Poses a threat to life or bodily function? How? (Chest pain, [place], [place], pneumonia, PE, COPD, DKA, ARF, appy, cholecystitis, CVA, Diverticulitis, Homicidal, Suicidal, threat to staff... and all critical care pts) @ -[No] Dr. Sharp is my attending Disposition Clinical Impression: Right hip pain Disposition: HOME SELF-CARE Condition: Good Instructions (If sedation given, give patient instructions): Pain Management (ED) Additional Instructions: Please follow up with Dr. Marino in in one to 2 days. Call the health Department tomorrow regarding mouse bite. Return to the emergency department if you experience new, concerning, or worsening symptoms. Is patient prescribed a controlled substance at d/c from ED?: No Referrals: Freddy Hernandez MD [Primary Care Provider] - 1-2 days
[2022-08-02 20:10] VITALS: BP 132/79; PULSE 80; RESP 16; TEMP 97.9
== END 2022-08-02 19:45 | disposition home or self-care (01) ==
LOC: EC 18:12
DX: M25.551 Pain in right hip (principal); I10 Essential (primary) hypertension; E11.8 Type 2 diabetes mellitus with unspecified complications; M19.90 Unspecified osteoarthritis, unspecified site; F41.9 Anxiety disorder, unspecified; F17.200 Nicotine dependence, unspecified, uncomplicated; F12.90 Cannabis use, unspecified, uncomplicated; Z79.899 Other long term (current) drug therapy; Z88.5 Allergy status to narcotic agent
CPT/HCPCS: 73502; 99284; 96372 ×2; J1885; J1170

== ENCOUNTER → 2022-08-24 | Outpatient (CLI) | payer MEDICARE, OTHER ==
--- NOTE | 2022-08-24 17:05 | US ---
EXAMINATION TYPE: US groin RT DATE OF EXAM: 08/24/2022 COMPARISON: CT pelvis May 14, 2021 CLINICAL INDICATION: Female, 62 years old with history of R59.9 M25.551; palpable areas right groin TECHNIQUE: Targeted ultrasound right groin. FINDINGS: scanned right groin within patient's area of concern, multiple lymph nodes noted, largest = 3.1 x 1.2 x 4.5cm IMPRESSION: New right groin adenopathy is present on images saved. Differential includes infectious and/or inflammatory etiologies. Correlate clinically. If adenopathy does not resolve further imaging may be warranted.
== END | disposition home or self-care (01) ==
LOC: RADUSWWP 16:18
PROVIDERS: ATTEND Family Medicine
DX: M25.551 Pain in right hip (principal); R59.0 Localized enlarged lymph nodes

== ENCOUNTER → 2022-08-27 | Outpatient (CLI) | payer MEDICARE, OTHER ==
--- NOTE | 2022-08-27 23:44 | CT ---
EXAMINATION TYPE: CT abdomen pelvis wo con DATE OF EXAM: 08/27/2022 HISTORY: right groin pain. Swollen lymph nodes and inguinal adenopathy per order. CT DLP: 953 mGycm. Automated Exposure Control for Dose Reduction was Utilized. TECHNIQUE: CT scan of the abdomen and pelvis is performed with oral but without IV contrast. COMPARISON: CT abdomen and pelvis February 04, 2021. Right hip x-rays November 27, 2021 and August 02 FINDINGS: Within the limitations of a non-contrast study, the following observations are made. LUNG BASES: No significant abnormality is appreciated. LIVER/GB: No significant abnormality is appreciated. PANCREAS: No significant abnormality is seen. SPLEEN: No significant abnormality is seen. ADRENALS: No significant abnormality is seen. KIDNEYS: No significant abnormality is seen. BOWEL: Oral contrast reaches the level of the terminal ileum. No suspicious small or large bowel dila tation. Appendix within normal limits for base of cecum. GENITAL ORGANS: Anteverted uterus. Symmetric small size ovaries correlates with patient's postmenopau uday age. LYMPH NODES: No greater than 1cm abdominal or pelvic lymph nodes are appreciated. OSSEOUS STRUCTURES: There is new metallic hardware from right hip arthroplasty causes streak artifact making evaluation of pelvic structures slightly suboptimal. Tiny ossific densities lateral to the ri ght femoral head are now noted. Prosthetic position is felt satisfactory. OTHER: There is asymmetric enlargement of the anterior proximal right thigh muscle. There is soft tis alfie density extending to the skin surface suspected portion reflecting scar from prior surgery. There are abnormal right groin lymph nodes now seen. For reference of the 3.6 x 1.8 cm lymph node axial im age 72.. IMPRESSION: Asymmetric anterior right muscle enlargement suspicious for myositis. No obvious bony blas truction. Adjacent reactive adenopathy is noted. Correlate clinically.
== END | disposition home or self-care (01) ==
LOC: RADCTMAIN 15:30
PROVIDERS: ATTEND Family Medicine
DX: R10.31 Right lower quadrant pain (principal); R59.0 Localized enlarged lymph nodes
CPT/HCPCS: 74176

== ENCOUNTER 2022-10-31 09:40 | Emergency (ER) | payer MEDICARE, OTHER ==
[2022-10-31] MEDS ORDERED: HYDROmorphone 0.5 MG/0.5 ML SYRINGE IVP STA (09:48)
[2022-10-31] MEDS ORDERED: ONDANSETRON 4 MG/2 ML VIAL IVP STA (09:48)
[2022-10-31 10:25] VITALS: TEMP 97.6
--- NOTE | 2022-10-31 10:38 | XR ---
EXAMINATION TYPE: XR Hip RT and AP Pelvis DATE OF EXAM: 10/31/2022 CLINICAL HISTORY: pain TECHNIQUE: AP and frogleg views of the right hip are obtained. COMPARISON: None. FINDINGS: There is total right hip arthroplasty with femoral and acetabular components appearing well seated. Mild heterotopic soft tissue calcification noted. The left hip appears to be intact. IMPRESSION: 1. There is no acute fracture or dislocation. ICD 10 NO FRACTURE, INITIAL EVALUATION
[2022-10-31] MEDS ORDERED: HYDROmorphone 1 MG/ML 1 ML SYRINGE IVP STA (10:55)
[2022-10-31] MEDS ORDERED: KETOROLAC 15 MG/ML 1 ML VIAL IVP STA (10:56)
--- NOTE | 2022-10-31 10:59 | ED ---
Extremity Problem HPI - General Chief complaint: Extremity Problem,Nontraumatic Stated complaint: R Hip Pain Time Seen by Provider: 10/31/22 09:46 Source: patient, EMS, RN notes reviewed Mode of arrival: EMS Limitations: physical limitation - History of Present Illness Initial comments: 62-year-old female presents emergency Department with chief complaint of right hip pain. Patient states that she's had multiple dislocations, issues with the right hip states she's had several surgeries she is scheduled see a specialist at [facility] in April. She states that she had a fall Wednesday at her PCPs office states that she started having pain with thought was eating better but states that it's worse morning to the point where she cannot Walk on it. Patient states her pain meds are not helping. Patient denies any fevers or chills no discoloration no shortening - Related Data Home Medications Medication Instructions Recorded Confirmed ALPRAZolam [Xanax] 2 mg PO BID PRN 12/20/19 11/27/21 HYDROcodone/APAP 10-325MG [[place] 1 tab PO QID PRN 12/20/19 11/27/21 10-325] Atorvastatin Calcium [Lipitor] 40 mg PO DAILY 11/27/21 11/27/21 Losartan [Cozaar] 25 mg PO DAILY 11/27/21 11/27/21 metFORMIN HCL [Glucophage] 500 mg PO DAILY 11/27/21 11/27/21 Allergies Allergy/AdvReac Type Severity Reaction Status Date / Time morphine AdvReac Hallucinati Verified 08/02/22 18:15 ons Review of Systems ROS Statement: Those systems with pertinent positive or pertinent negative responses have been documented in the HPI. ROS Other: All systems not noted in ROS Statement are negative. 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 Past Anesthesia/Blood Transfusion Reactions: No Reported Reaction Past Psychological History: Anxiety, PTSD Smoking Status: Current every day smoker Past Alcohol Use History: None Reported Past Drug Use History: Marijuana - Past Family History Mother Family Medical History: No Reported History Father Family Medical History: Hypertension Additional Family Medical History / Comment(s): Alcoholic. General Exam Limitations: physical limitation General appearance: alert, in no apparent distress Head exam: Present: atraumatic, normocephalic, normal inspection Eye exam: Present: normal appearance, PERRL, EOMI. Absent: scleral icterus, conjunctival injection, periorbital swelling Respiratory exam: Present: normal lung sounds bilaterally. Absent: respiratory distress, wheezes, rales, rhonchi, stridor Cardiovascular Exam: Present: regular rate, normal rhythm, normal heart sounds. Absent: systolic murmur, diastolic murmur, rubs, gallop, clicks Extremities exam: Present: other (Right hip tenderness pain with range of motion neurovascular intact with equal pedal pulses) Neurological exam: Present: alert Course Vital Signs 10/31/22 10/31/22 09:47 12:34 Temperature 97.6 F Pulse Rate 88 74 Respiratory 20 18 Rate Blood Pressure 138/86 134/78 O2 Sat by Pulse 98 99 Oximetry Medical Decision Making - Medical Decision Making Was pt. sent in by a medical professional or institution (Dr. PA, CIVIL ENGINEERING INTERN, urgent care, hospital, or [facility]...) When possible be specific @ -No Did you speak to anyone other than the patient for history (EMS, parent, family, police, friend...)? What history was obtained from this source @ -EMS who transported patient regarding patient's history Did you review nursing and triage notes (agree or disagree)? Why? @ -I reviewed and agree with nursing and triage notes Were old charts reviewed (outside hosp., previous admission, EMS record, old EKG, old radiological studies, urgent care reports/EKG's, [facility] records)? Report findings @ -No old charts were reviewed Differential Diagnosis (chest pain, altered mental status, abdominal pain women, abdominal pain men, vaginal bleeding, weakness, fever, dyspnea, syncope, headache, dizziness, GI bleed, back pain, seizure, CVA, palpatations, mental health, musculoskeletal)? @ -Hip dislocation, hip fracture, pelvic fracture, hip strain EKG interpreted by me (3pts min.). @ -None X-rays interpreted by me (1pt min.). @ -X-ray right hip with pelvis shows no acute fracture dislocation CT interpreted by me (1pt min.). @ -None done U/S interpreted by me (1pt. min.). @ -None done What testing was considered but not performed or refused? (CT, X-rays, U/S, labs)? Why? @ -None What meds were considered but not given or refused? Why? @ -None Did you discuss the management of the patient with other professionals (professionals i.e. , PA, CIVIL ENGINEERING INTERN, lab, RT, psych nurse, social science research assistant, rail assembler, teacher, evp chief exploration officer, ed case manager)? Give summary @ -No Was smoking cessation discussed for >3mins.? @ -No Was critical care preformed (if so, how long)? @ -No Were there social determinants of health that impacted care today? How? (Homelessness, low income, unemployed, alcoholism, drug addiction, transportation, low edu. Level, literacy, decrease access to med. care, longterm, rehab)? @ -No Was there de-escalation of care discussed even if they declined (Discuss DNR or withdrawal of care, Hospice)? DNR status @ -No What co-morbidities impacted this encounter? (DM, HTN, Smoking, COPD, CAD, Cancer, CVA, ARF, Chemo, Hep., AIDS, mental health diagnosis, sleep apnea, morbid obesity)? @ -None Was patient admitted / discharged? Hospital course, mention meds given and route, prescriptions, significant lab abnormalities, going to OR and other pert inent info. @ -Discharge patient's pain is improved. Patient has no evidence of dislocation or fracture patient is able to ambulate patient has ongoing chronic pain from multiple surgeries. Patient discharged in stable condition with follow-up with orthopedics Undiagnosed new problem with uncertain prognosis? @ -No Drug Therapy requiring intensive monitoring for toxicity (Heparin, Nitro, Insulin, Cardizem)? @ -No Were any procedures done? @ -No Diagnosis/symptom? @ -Right hip pain Acute, or Chronic, or Acute on Chronic? @ -Acute on chronic Uncomplicated (without systemic symptoms) or Complicated (systemic symptoms)? @ -Uncomplicated Side effects of treatment? @ -No Exacerbation, Progression, or Severe Exacerbation? @ -No Poses a threat to life or bodily function? How? (Chest pain, [place], [place], pneumonia, PE, COPD, DKA, ARF, appy, cholecystitis, CVA, Diverticulitis, Homicidal, Suicidal, threat to staff... and all critical care pts) @ -No Disposition Clinical Impression: Right hip pain Disposition: HOME SELF-CARE Condition: Stable Instructions (If sedation given, give patient instructions): Hip Pain (ED) Additional Instructions: Please return to the Emergency Department if symptoms worsen or any other concerns. Is patient prescribed a controlled substance at d/c from ED?: No Referrals: Freddy Hernandez MD [Primary Care Provider] - 1-2 days Time of Disposition: 12:04
[2022-10-31] MEDS: LORazepam 2 MG/ML INJ IV STA ×2 (11:35→12:06)
[2022-10-31] MEDS ORDERED: oxyCODONE-APAP 5-325MG 1 EACH TAB PO STA (12:03)
[2022-10-31 12:38] VITALS: BP 134/78; PULSE 74; RESP 18
== END 2022-10-31 12:38 | disposition home or self-care (01) ==
LOC: EC 09:40
DX: M25.551 Pain in right hip (principal); E11.9 Type 2 diabetes mellitus without complications; I10 Essential (primary) hypertension; M19.90 Unspecified osteoarthritis, unspecified site; F41.9 Anxiety disorder, unspecified; F17.200 Nicotine dependence, unspecified, uncomplicated; F12.90 Cannabis use, unspecified, uncomplicated; Z86.73 Personal history of transient ischemic attack (TIA), and cerebral infarction without residual deficits; Z79.899 Other long term (current) drug therapy; Z79.1 Long term (current) use of non-steroidal anti-inflammatories (NSAID); Z79.84 Long term (current) use of oral hypoglycemic drugs; Z88.5 Allergy status to narcotic agent; X58.XXXA Exposure to other specified factors, initial encounter
CPT/HCPCS: 73502; 99284; 96374; 96375 ×3; 96376; J2060; J2405; J1170 ×2; J1885

== ENCOUNTER 2022-11-12 11:16 | Emergency (ER) | payer MEDICARE, OTHER ==
[2022-11-12] MEDS ORDERED: KETOROLAC 15 MG/ML 1 ML VIAL IM STA (11:38)
[2022-11-12] MEDS ORDERED: HYDROmorphone 1 MG/ML 1 ML SYRINGE IM STA (11:38)
--- NOTE | 2022-11-12 11:41 | ED ---
General Adult HPI - General Chief complaint: Extremity Problem,Nontraumatic Stated complaint: Fall Time Seen by Provider: 11/12/22 11:30 Source: patient, RN notes reviewed, old records reviewed Mode of arrival: ambulatory Limitations: no limitations - History of Present Illness Initial comments: This is a 62-year-old female presents emergency department stating she has chronic right hip pain. Patient states she has had dislocations in the past. Patient states over the last 3 days the pain is getting worse and she is supposed to follow-up at [facility] but has not for a few months. Patient states she woke up this morning in the pain was worse and has been over the last few days so she decided come to the emergency department reevaluate. Patient denies any fall patient denies any injury to the area. Patient states she is able to bend the knee fully but it does hurt in the hip. Patient denies any back pain. Patient denies any other symptoms at this time. Patient states this is the same pain she's been experiencing for the last few years. - Related Data Home Medications Medication Instructions Recorded Confirmed ALPRAZolam [Xanax] 2 mg PO TID PRN 12/20/19 11/12/22 Atorvastatin Calcium [Lipitor] 40 mg PO DAILY 11/27/21 11/12/22 Losartan [Cozaar] 25 mg PO DAILY 11/27/21 11/12/22 metFORMIN HCL [Glucophage] 500 mg PO DAILY 11/27/21 11/12/22 oxyCODONE-APAP 5-325MG [Percocet 1 tab PO TID PRN 11/12/22 11/12/22 5-325 mg] Allergies Allergy/AdvReac Type Severity Reaction Status Date / Time morphine AdvReac Hallucinati Verified 11/12/22 13:37 ons Review of Systems ROS Statement: Those systems with pertinent positive or pertinent negative responses have been documented in the HPI. ROS Other: All systems not noted in ROS Statement are negative. 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 Past Anesthesia/Blood Transfusion Reactions: No Reported Reaction Past Psychological History: Anxiety, PTSD Smoking Status: Current every day smoker Past Alcohol Use History: None Reported Past Drug Use History: Marijuana - Past Family History Mother Family Medical History: No Reported History Father Family Medical History: Hypertension Additional Family Medical History / Comment(s): Alcoholic. General Exam - General Exam Comments Initial Comments: GENERAL: Patient is well-developed and well-nourished. Patient is nontoxic and well- hydrated and is in moderate distress. ENT: Neck is soft and supple. No significant lymphadenopathy is noted. Oropharynx is clear. Moist mucous membranes. Neck has full range of motion without eliciting any pain. EYES: The sclera were anicteric and conjunctiva were pink and moist. Extraocular movements were intact and pupils were equal round and reactive to light. Eyelids were unremarkable. PULMONARY: Unlabored respirations. Good breath sounds bilaterally. No audible rales rhonchi or wheezing was noted. CARDIOVASCULAR: There is a regular rate and rhythm without any murmurs gallops or rubs. ABDOMEN: Soft and nontender with normal bowel sounds. SKIN: Skin is clear with no lesions or rashes and otherwise unremarkable. NEUROLOGIC: Patient is alert and oriented x3. Cranial nerves II through XII are grossly intact. Motor and sensory are also intact. Normal speech, volume and content. Symmetrical smile. MUSCULOSKELETAL: Patient is able to flex at the hip and extend. This does cause the patient some pain but she is able to move the hip. LYMPHATICS: No significant lymphadenopathy is noted PSYCHIATRIC: Normal psychiatric evaluation. Limitations: no limitations Course Vital Signs 11/12/22 11/12/22 11:20 13:14 Temperature 97.6 F 97.6 F Pulse Rate 79 68 Respiratory 20 20 Rate Blood Pressure 94/76 124/97 O2 Sat by Pulse 96 99 Oximetry Medical Decision Making - Medical Decision Making Was pt. sent in by a medical professional or institution (, HOLDEN, ADMINISTRATIVE PERSONAL ASSISTANT, urgent care, hospital, or longterm...) When possible be specific @ -No Did you speak to anyone other than the patient for history (EMS, parent, family, police, friend...)? What history was obtained from this source @ -No Did you review nursing and triage notes (agree or disagree)? Why? @ -I reviewed and agree with nursing and triage notes Were old charts reviewed (outside hosp., previous admission, EMS record, old EKG, old radiological studies, urgent care reports/EKG's, longterm records)? Report findings @ -I reviewed prior radiological studies Differential Diagnosis (chest pain, altered mental status, abdominal pain women, abdominal pain men, vaginal bleeding, weakness, fever, dyspnea, syncope, headache, dizziness, GI bleed, back pain, seizure, CVA, palpatations, mental health, musculoskeletal)? @ -Differential Musculoskeletal Muscular strain, contusion, ligament sprain, fracture, arthritis, septic arthritis, bursitis, cellulitis, muscle spasm, nerve compression, DVT, arterial occlusion, herpes zoster, electrolyte abnormality, tumor.... This is not meant to be in all inclusive list EKG interpreted by me (3pts min.). @ -As above X-rays interpreted by me (1pt min.). @ -X-ray of the hip and pelvis show no acute abnormality CT interpreted by me (1pt min.). @ -None done U/S interpreted by me (1pt. min.). @ -None done What testing was considered but not performed or refused? (CT, X-rays, U/S, labs)? Why? @ -None What meds were considered but not given or refused? Why? @ -None Did you discuss the management of the patient with other professionals (professionals i.e. HOLDEN Perera, ADMINISTRATIVE PERSONAL ASSISTANT, lab, RT, psych nurse, geriatric social work professor, dust collector ore crushing, teacher, investment officer, piano case maker)? Give summary @ -No Was smoking cessation discussed for >3mins.? @ -No Was critical care preformed (if so, how long)? @ -No Were there social determinants of health that impacted care today? How? (Homelessness, low income, unemployed, alcoholism, drug addiction, transportation, low edu. Level, literacy, decrease access to med. care, long-term, rehab)? @ -No Was there de-escalation of care discussed even if they declined (Discuss DNR or withdrawal of care, Hospice)? DNR status @ -No What co-morbidities impacted this encounter? (DM, HTN, Smoking, COPD, CAD, Cancer, CVA, ARF, Chemo, Hep., AIDS, mental health diagnosis, sleep apnea, morbid obesity)? @ -None Was patient admitted / discharged? Hospital course, mention meds given and route, prescriptions, significant lab abnormalities, going to OR and other pertinent info. @ -Patient was given Dilaudid and Toradol was feeling considerably better she did state she could go home and follow-up with Dr. Pierce in and she only has an appointment the reverse admission. Undiagnosed new problem with uncertain prognosis? @ -No Drug Therapy requiring intensive monitoring for toxicity (Heparin, Nitro, Insulin, Cardizem)? @ -No Were any procedures done? @ -No Diagnosis/symptom? @ -Hip pain Acute, or Chronic, or Acute on Chronic? @ -Chronic Uncomplicated (without systemic symptoms) or Complicated (systemic symptoms)? @ -Uncomplicated Side effects of treatment? @ -No Exacerbation, Progression, or Severe Exacerbation? @ -No] Poses a threat to life or bodily function? How? (Chest pain, USA, CT, pneumonia, PE, COPD, DKA, ARF, appy, cholecystitis, CVA, Diverticulitis, Homicidal, Suicidal, threat to staff... and all critical care pts) @ -[No] Disposition Clinical Impression: Chronic hip pain Disposition: HOME SELF-CARE Condition: Good Instructions (If sedation given, give patient instructions): Hip Pain (ED) Is patient prescribed a controlled substance at d/c from ED?: No Referrals: Freddy Hernandez MD [Primary Care Provider] - 1-2 days Time of Disposition: 13:58
--- NOTE | 2022-11-12 12:46 | XR ---
EXAMINATION TYPE: XR Hip RT and AP Pelvis DATE OF EXAM: 11/12/2022 12:41 PM INDICATION: Patient age:Female; 62 years old; Reason for study: Trauma; COMPARISON: 10/31/2022 TECHNIQUE: The right hip was examined in the frontal and lateral projections and a AP pelvis. FINDINGS: Post arthroplasty changes, hardware is intact, alignment is appropriate. No evidence of fra cture. IMPRESSION: Hip arthroplasty with hardware intact and in appropriate alignment. No acute fracture.
[2022-11-12] MEDS ORDERED: HYDROmorphone 0.5 MG/0.5 ML SYRINGE IVP STA (13:58)
[2022-11-12] MEDS ORDERED: HYDROmorphone 0.5 MG/0.5 ML SYRINGE IM STA (14:06)
[2022-11-12 14:12] VITALS: BP 119/82; PULSE 61; RESP 18; TEMP 97.7
== END 2022-11-12 14:20 | disposition home or self-care (01) ==
LOC: EC 11:16
DX: G89.29 Other chronic pain (principal); M25.551 Pain in right hip; I10 Essential (primary) hypertension; E11.9 Type 2 diabetes mellitus without complications; F41.9 Anxiety disorder, unspecified; F12.90 Cannabis use, unspecified, uncomplicated; F17.200 Nicotine dependence, unspecified, uncomplicated; Z79.84 Long term (current) use of oral hypoglycemic drugs; Z79.899 Other long term (current) drug therapy; Z88.5 Allergy status to narcotic agent
CPT/HCPCS: 73502; 99284; 96372 ×3; J1170 ×2; J1885

== ENCOUNTER 2022-11-14 14:27 | Observation (INO) | payer MEDICARE, OTHER ==
--- NOTE | 2022-11-14 14:43 | ED ---
General Adult HPI - General Chief complaint: Extremity Injury, Lower Stated complaint: Right hip pain Time Seen by Provider: 11/14/22 14:39 Source: patient, RN notes reviewed, old records reviewed Mode of arrival: EMS - History of Present Illness Initial comments: 62-year-old female presents to the emergency room with complaints of chronic right hip pain worsening over past 5 days. Patient states was in the emergency room a couple of days ago and had x-ray done but continues to have pain. She did call her primary care Dr. Hernandez today and stated that the Percocet he pres cribed is not working and she wants to go back on the [employer] which he agreed but did not call in a prescription. Patient states that there is something wrong in the right hip and is very concerned. Also complains of pain to mid thigh and noticed some bruising. Denies any trauma or falls. States has had multiple fractures and dislocations in the past. -: days(s) (5) Location: right, lower extremity Severity scale (1-10): 8 Quality: constant Consistency: constant Improves with: immobilization Worsens with: movement Associated Symptoms: denies other symptoms Treatments Prior to Arrival: other (percocet) - Related Data Home Medications Medication Instructions Recorded Confirmed ALPRAZolam [Xanax] 2 mg PO TID PRN 12/20/19 11/12/22 Atorvastatin Calcium [Lipitor] 40 mg PO DAILY 11/27/21 11/12/22 Losartan [Cozaar] 25 mg PO DAILY 11/27/21 11/12/22 metFORMIN HCL [Glucophage] 500 mg PO DAILY 11/27/21 11/12/22 oxyCODONE-APAP 5-325MG [Percocet 1 tab PO TID PRN 11/12/22 11/12/22 5-325 mg] Allergies Allergy/AdvReac Type Severity Reaction Status Date / Time morphine AdvReac Hallucinati Verified 11/14/22 14:35 ons Review of Systems ROS Statement: Those systems with pertinent positive or pertinent negative responses have been documented in the HPI. ROS Other: All systems not noted in ROS Statement are negative. 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 Past Anesthesia/Blood Transfusion Reactions: No Reported Reaction Past Psychological History: Anxiety, PTSD Smoking Status: Current every day smoker Past Alcohol Use History: None Reported Past Drug Use History: Marijuana - Past Family History Mother Family Medical History: No Reported History Father Family Medical History: Hypertension Additional Family Medical History / Comment(s): Alcoholic. General Exam General appearance: alert, in no apparent distress Head exam: Present: atraumatic Neck exam: Present: full ROM. Absent: meningismus Respiratory exam: Absent: respiratory distress, accessory muscle use Cardiovascular Exam: Present: regular rate GI/Abdominal exam: Present: soft Extremities exam: Present: normal capillary refill. Absent: pedal edema Right Hip exam: Present: tenderness (pain with flexion, internal and external rotation), pelvic stability. Absent: external rotation, internal rotation Upper Leg exam: Absent: tenderness Knee exam: Absent: tenderness, swelling Lower Leg exam: Absent: tenderness, swelling Ankle exam: Absent: tenderness, swelling Neurovascular tendon exam: Present: no vascular compromise. Absent: abnormal cap refill, extremity cold to touch, pallor, foot drop Neurological exam: Present: alert, oriented X3 Psychiatric exam: Present: normal affect, normal mood Skin exam: Present: warm, dry, normal color. Absent: cyanosis, diaphoretic, petechiae, pallor Course Vital Signs 11/14/22 14:27 Temperature 98.5 F Pulse Rate 76 Respiratory 19 Rate Blood Pressure 115/74 O2 Sat by Pulse 95 Oximetry - Reevaluation(s) Reevaluation #1: 11/14/22 16:[address] Hernandez regarding patient plan of care recommended admission with IV antibiotics consult to Dr. Blue and infectious disease. Time: 15:55 Medical Decision Making - Medical Decision Making Was pt. sent in by a medical professional or institution (HOLDEN Perera, INFORMATION SYSTEMS AUDIT MANAGER, urgent care, hospital, or [facility]...) When possible be specific @ -No Did you speak to anyone other than the patient for history (EMS, parent, family, police, friend...)? What history was obtained from this source @ -No Did you review nursing and triage notes (agree or disagree)? Why? @ -I reviewed and agree with nursing and triage notes Were old charts reviewed (outside hosp., previous admission, EMS record, old EKG, old radiological studies, urgent care reports/EKG's, [facility] records)? Report findings @ -yes previous ER visit and x-ray report Differential Diagnosis (chest pain, altered mental status, abdominal pain women, abdominal pain men, vaginal bleeding, weakness, fever, dyspnea, syncope, headache, dizziness, GI bleed, back pain, seizure, CVA, palpatations, mental health, musculoskeletal)? @ -Right hip fracture, dislocation, osteomyelitis this is not a conclusive this EKG interpreted by me (3pts min.). @ -n/a X-rays interpreted by me (1pt min.). @ -None done CT interpreted by me (1pt min.). @ -CT of the right hip interpreted by me shows no evidence of acute fracture or dislocation. U/S interpreted by me (1pt. min.). @ -n/a What testing was considered but not performed or refused? (CT, X-rays, U/S, labs)? Why? @ -None What meds were considered but not given or refused? Why? @ -None Did you discuss the management of the patient with other professionals (professionals i.e. HOLDEN Perera, INFORMATION SYSTEMS AUDIT MANAGER, lab, RT, psych nurse, social work supervisor, water project manager, teacher, security police officer, case management coordinator)? Give summary @ -I did speak with Dr. Hernandez who recommended admission with consult to Dr. Blue and infectious disease Was smoking cessation discussed for >3mins.? @ -No Was critical care preformed (if so, how long)? @ -No Were there social determinants of health that impacted care today? How? (Homelessness, low income, unemployed, alcoholism, drug addiction, transportation, low edu. Level, literacy, decrease access to med. care, longterm, rehab)? @ -No Was there de-escalation of care discussed even if they declined (Discuss DNR or withdrawal of care, Hospice)? DNR status @ -No What co-morbidities impacted this encounter? (DM, HTN, Smoking, COPD, CAD, Cancer, CVA, ARF, Chemo, Hep., AIDS, mental health diagnosis, sleep apnea, morbid obesity)? @ CVA, diabetes, hypertension, osteoarthritis and liver disease. Multiple right hip dislocations. Osteoarthritis right hip. Previous cervical and low back fractures with herniated bulging disks, anxiety and PTSD. Was patient admitted / discharged? Hospital course, mention meds given and route, prescriptions, significant lab abnormalities, going to OR and other pertinent info. @ -Admitted 62-year-old female presents to the emergency room with complaints of chronic right hip pain worsening over past 5 days. Patient states was in the emergency room a couple of days ago and had x-ray done but continues to have pain. She did call her primary care Dr. Hernandez today and stated that the Percocet he prescribed is not working and she wants to go back on the [employer] which he agreed but did not call in a prescription. Patient states that there is something w wayne in the right hip and is very concerned. Also complains of pain to mid thigh and noticed some bruising. Denies any trauma or falls. States has had multiple fractures and dislocations in the past. Last ER visit 2 days ago and report reviewed and showed hip arthroplasty with hardware intact and appropriate alignment and no acute fracture. Patient was given Dilaudid and Toradol and was feeling better and discharged. Today on physical exam patient does have pain with hip flexion and internal and external rotation of the right knee. Linear area of bruising to right lower lateral thigh. She is neurovascularly intact. Sensation intact. Patient given norco for pain. CT ordered for continued pain. She did request Dilaudid stating she has a high tolerance for pain medication due to chronic pain. CT of the right hip interpreted by me shows no evidence of acute fracture or dislocation. Radiologist interpretation no acute fracture or dislocation. Postsurgical changes from a total right hip arthroplasty. Hardware appears intact with appropriate alignment. Large intramuscular right anterior thigh fluid collection anterior to the hip prosthesis measuring 3.9 x 5.6 x 6.2 cm. Contains internal foci of gas and is concerning for abscess. Ill-defined low density within the illiopsoas muscle suspect for phlegmon versus abscess measuring 3.3 x 2.6 cm. Asymmetrical enlargement posterior right thigh musculature again demonstrated may reflect myositis. Early visualized due to streak artifact from his prosthesis. Right inguinal adenopathy which is likely reactive to concern for abscess. Patient continues to complain of pain therefore Dilaudid was given. Antibiotics were started after blood cultures drawn. Labs were drawn. No evidence of leukocytosis Patient will be admitted to the hospital for abscess vs phlegmon with myositis and adenopathy. Patient is agreeable to this plan of care. Case discussed with Dr. Adkins Undiagnosed new problem with uncertain prognosis? @ -No Drug Therapy requiring intensive monitoring for toxicity (Heparin, Nitro, Insulin, Cardizem)? @ -No Were any procedures done? @ -No Diagnosis/symptom? @ -Right thigh pain, Abscess versus phlegmon, myositis Acute, or Chronic, or Acute on Chronic? @ -Acute Uncomplicated (without systemic symptoms) or Complicated (systemic symptoms)? @ -Uncomplicated Side effects of treatment? @ -No Exacerbation, Progression, or Severe Exacerbation? @ -No Poses a threat to life or bodily function? How? (Chest pain, [place], [place], pneumonia, PE, COPD, DKA, ARF, appy, cholecystitis, CVA, Diverticulitis, Homicidal, Suicidal, threat to staff... and all critical care pts) @ -No - Lab Data Result diagrams: 11/14/22 15:57 Lab Results 11/14/22 Range/Units 15:57 WBC 9.3 (3.8-10.6) k/uL RBC 4.47 (3.80-5.40) m/uL Hgb 11.6 (11.4-16.0) gm/dL Hct 36.1 (34.0-46.0) % MCV 80.8 (80.0-100.0) fL MCH 25.9 (25.0-35.0) pg MCHC 32.1 (31.0-37.0) g/dL RDW 15.1 (11.5-15.5) % Plt Count 518 H (150-450) k/uL MPV 7.2 Neutrophils % 80 % Lymphocytes % 14 % Monocytes % 5 % Eosinophils % 1 % Basophils % 0 % Neutrophils # 7.5 (1.3-7.7) k/uL Lymphocytes # 1.3 (1.0-4.8) k/uL Monocytes # 0.4 (0-1.0) k/uL Eosinophils # 0.1 (0-0.7) k/uL Basophils # 0.0 (0-0.2) k/uL Hypochromasia Slight Disposition Clinical Impression: Abscess of right thigh, Myositis of right thigh Disposition: ADMITTED IP TO THIS [facility] Decision Date: 11/14/22 Decision Time: 16:01
[2022-11-14] MEDS ORDERED: HYDROcodone/APAP 5-325MG 1 EACH TAB PO STA (14:46)
--- NOTE | 2022-11-14 15:25 | CT ---
EXAMINATION TYPE: CT hip RT wo con CT DLP: 1049.6 mGycm, Automated exposure control for dose reduction was used. DATE OF EXAM: 11/14/2022 3:13 PM COMPARISON: CT abdomen pelvis 08/27/2022, right hip radiograph 11/12/2022 CLINICAL INDICATION:Female, 62 years old with history of pain; PHH, chronic rt hip pain. hx of replac ements. TECHNIQUE: Axial images were obtained of the right hip without the use of IV contrast. Additional co joao and sagittal reformatted images and soft tissue and bone window were obtained for review. 3-D r econstruction was created on a separate workstation. FINDINGS: Post surgical changes from total right hip arthroplasty. This creates streak artifact which limits evaluation. Hardware appears intact with appropriate alignment. No acute fracture or dislocat ion. No osseous erosions. Right anterior thigh intramuscular fluid collection measuring 3.9 x 5.6 x 6.2 cm in AP by TV by CC di mensions. There is internal gas identified. (Series 204, image 40). There is ill-defined hypodense region within the right iliopsoas muscle measuring at least 3.3 x 2.6 cm (series 204, image 14). Additionally there is asymmetric surrounding muscle enlargement posteriorl y. Suspicious for myositis. Stranding/scarring identified within the right anterior thigh soft tissues. Mildly enlarged right ing uinal lymph nodes with largest measuring 1.4 cm short axis. IMPRESSION: Evaluation is limited due to streak artifact from hip prosthesis. 1. No acute fracture or dislocation. 2. Postsurgical changes from total right hip arthroplasty. Hardware appears intact with appropriate a lignment. 3. Large intramuscular anterior thigh fluid collection anterior to the hip prosthesis. This contains internal foci of gas and is concerning for abscess. 4. Ill-defined low-density within the iliopsoas muscle suspicious for phlegmon versus abscess. 5. Asymmetrically enlarged posterior right thigh musculature again demonstrated and may reflect myosi tis. Early visualized due to streak artifact from hip prosthesis. 6. Right inguinal adenopathy which is likely reactive to #3.
[2022-11-14] MEDS ORDERED: HYDROmorphone 0.5 MG/0.5 ML SYRINGE IVP STA (15:36)
[2022-11-14] MEDS ORDERED: NALOXONE 0.4 MG/ML 1 ML VIAL IV PRN (15:57)
[2022-11-14 16:22] LABS: Basophils % (A) 0 %; Eosinophils # (A) 0.1 k/uL (0-0.7); Eosinophils % (A) 1 %; HCT 36.1 % (34.0-46.0); HGB 11.6 gm/dL (11.4-16.0); Hypochromasia Slight; Lymphocytes # (A) 1.3 k/uL (1.0-4.8); Lymphocytes % (A) 14 %; MCH 25.9 pg (25.0-35.0); MCHC 32.1 g/dL (31.0-37.0); MCV 80.8 fL (80.0-100.0); Mean Platelet Volume 7.2; Monocytes # (A) 0.4 k/uL (0-1.0); Monocytes % (A) 5 %; Neutrophils # (A) 7.5 k/uL (1.3-7.7); Neutrophils % (A) 80 %; Platelet Count 518 k/uL (150-450); RBC 4.47 m/uL (3.80-5.40); RDW 15.1 % (11.5-15.5); WBC 9.3 k/uL (3.8-10.6)
[2022-11-14 16:52] LABS: ALT 12 U/L (4-34); AST 21 U/L (14-36); African American GFR (CKD) >90 (>60 ml/min/1.73 sqM); Albumin 4.2 g/dL (3.5-5.0); Alkaline Phosphatase 130 U/L (38-126); Anion Gap 9 mmol/L; Blood Urea Nitrogen 9 mg/dL (7-17); Calcium 9.8 mg/dL (8.4-10.2); Carbon Dioxide 27 mmol/L (22-30); Chloride 104 mmol/L (98-107); Glucose 114 mg/dL (74-99); Non-African American GFR(CKD) >90 (>60 ml/min/1.73 sqM); Potassium 4.2 mmol/L (3.5-5.1); Sodium 140 mmol/L (137-145); Total Bilirubin 0.4 mg/dL (0.2-1.3); Total Protein 8.2 g/dL (6.3-8.2)
[2022-11-14] MEDS ORDERED: LORazepam 2 MG/ML INJ IV STA (17:01)
[2022-11-14] MEDS: HYDROmorphone 0.5 MG/0.5 ML SYRINGE IVP PRN ×2 (20:04→23:49)
[2022-11-14 20:30] LABS: Glucose,Whole Blood 97 mg/dL (70-110)
[2022-11-14] MEDS: HYDROcodone/APAP 5-325MG 1 EACH TAB PO PRN (21:07)
[2022-11-15] MEDS: HYDROcodone/APAP 5-325MG 1 EACH TAB PO PRN ×5 (01:22→22:59)
[2022-11-15] MEDS: HYDROmorphone 0.5 MG/0.5 ML SYRINGE IVP PRN ×6 (03:29→21:16)
[2022-11-15 06:05] LABS: Glucose,Whole Blood 110 mg/dL (70-110)
[2022-11-15] MEDS: metFORMIN 500 MG TAB PO SCH (09:07)
[2022-11-15] MEDS: ATORVASTATIN 40 MG TAB PO SCH (09:07)
[2022-11-15] MEDS: LOSARTAN 25 MG TAB PO SCH (09:07)
[2022-11-15 12:00] LABS: Glucose,Whole Blood 119 mg/dL (70-110)
[2022-11-15] MEDS: NICOTINE 21MG/24HR PATCH TRANSDERM SCH (14:51)
[2022-11-15] MEDS: ALPRAZolam 1 MG TAB PO PRN ×2 (14:53→21:17)
[2022-11-15 16:50] LABS: Glucose,Whole Blood 117 mg/dL (70-110)
[2022-11-15 20:18] LABS: Glucose,Whole Blood 171 mg/dL (70-110)
[2022-11-16] MEDS: HYDROmorphone 0.5 MG/0.5 ML SYRINGE IVP PRN ×8 (00:23→21:44)
[2022-11-16] MEDS: HYDROcodone/APAP 5-325MG 1 EACH TAB PO PRN ×4 (03:10→19:29)
[2022-11-16 05:51] LABS: Glucose,Whole Blood 134 mg/dL (70-110)
[2022-11-16] MEDS: ALPRAZolam 1 MG TAB PO PRN ×3 (07:17→21:44)
--- NOTE | 2022-11-16 07:22 | P.CNOR ---
History of Present Illness - [facility] Consult date: 11/15/22 (Patient was evaluated 11/15/2022, issue with [place] unable to dictate from home ) Consult reason: joint pain (right hip pain) History of present illness: Patient is a 62-year-old female who is well known to our orthopedic practice. Patient presented to Hospital on 11/14/2022 with worsening right hip pain. It was noted in the chart she was evaluated [facility] ER on 10/31/2022 and 11/12/2022 with same issues. patient is a very detailed history involving her right hip. She initially underwent a direct anterior total hip arthroplasty by Dr. Blue in May 2021. during her postoperative period she had 2 separate dislocations in June 2021, she underwent closed reduction on both of those. She was then scheduled for a revision surgery in July 2021. Patient had 1 further dislocation in November 2021, she again underwent a closed reduction procedure. at that occasion, patient was in hospital for evaluation, we attempted to set up transfer to [facility] for evaluation by an orthopedic trauma doctor to evaluate for possible further revision surgery. during the hospital stay, patient did leave AMA was not transferred or evaluated by the practice specialist at [facility]. While reviewing patient's previous admissions for the right hip problems, she is left AMA on multiple occasions. Patient underwent a computed tomography scan of the right hip on 11/14/2022, images demonstrated no acute fractures or dislocations no obvious malalignment of the total hip arthroplasty components. Report did mention fluid collection intramuscular in the anterior thigh, anterior to the total hip arthroplasty components.concern was for abscess, patient was then admitted under internal medicine and started on IV antibiotics. Patient was evaluated on 11/15/2022 in her hospital room. Patient was visualized walking around the room and actively moving the right hip joint with very minimal discomfort. Patient states that she's had chronic pain in the right hip since the initial surgery and initial dislocation. Patient denies any fevers or chills at this time. Patient's initial lab work revealed no elevation in her white blood cell count. Patient's vitals have remained stable. CRP was noted to be mildly elevated at 3.0. Patient admits to most discomfort on the anterior and lateral aspect of the thigh. She states that the pain is constantly there. She was a very poor historian when it came to describing the changes and pain that led to her recent visits to the hospital regarding the right hip. She denies any recent trauma, this including falls. She states that her primary care doctor was able to set her up with a hip specialist at the [facility], she states that that appointment isn't until April. Patient has no other orthopedic complaints at this time. 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 Past Anesthesia/Blood Transfusion Reactions: No Reported Reaction Past Psychological History: Anxiety, PTSD Additional Psychological History / Comment(s): Pt resides with significant other and her cousin. Pt doesn't drive, she has 2 people she can pay to drive her places. She is otherwise independent. Smoking Status: Current every day smoker Past Alcohol Use History: None Reported Additional Past Alcohol Use History / Comment(s): smokes 2-3 cigarettes/day. Past Drug Use History: Marijuana Additional Drug Use History / Comment(s): Smokes marijuana or uses edibles occasionally. - Past Family History Mother Family Medical History: No Reported History Father Family Medical History: Hypertension Additional Family Medical History / Comment(s): Alcoholic. Medications and Allergies Home Medications Medication Instructions Recorded Confirmed Type ALPRAZolam [Xanax] 2 mg PO TID PRN 12/20/19 11/14/22 History Atorvastatin Calcium [Lipitor] 40 mg PO DAILY 11/27/21 11/14/22 History Losartan [Cozaar] 25 mg PO DAILY 11/27/21 11/14/22 History metFORMIN HCL [Glucophage] 500 mg PO DAILY 11/27/21 11/14/22 History Allergies Allergy/AdvReac Type Severity Reaction Status Date / Time oxycodone Allergy Itching Verified 11/14/22 17:10 morphine AdvReac Hallucinati Verified 11/14/22 17:10 ons Physical Examination Right lower extremity: Well-healed incision over the anterior aspect of the upper thigh, there is no redness or open lesions present. I am able to appreciate some fullness in the anterior thigh medial to the incision. No significant tenderness is reproduced with palpation in that area. Patient demonstrates generalized soreness with palpation throughout the lateral aspect of the thigh. Logroll maneuver of the extremity reproduces minimal discomfort. Patient is able to actively flex and extend the hip, she states this does cause some discomfort more on the anterior lateral aspect of the thigh versus the groin. Patient is able to straight leg raise and minimal difficulty Knee flexion, knee extension, plantar flexion, dorsiflexion, EHL, FHL are intact Calf is soft, no tenderness with palpation Sensory exam to light touch is intact throughout the extremity Dorsalis pedis pulses 2+ Results - Labs Labs: Abnormal Lab Results - Last 24 Hours (Table) 11/15/22 11/15/22 11/15/22 Range/Units 11:59 16:48 20:16 POC Glucose (mg/dL) 119 H 117 H 171 H (70-110) mg/dL 11/16/22 Range/Units 05:50 POC Glucose (mg/dL) 134 H (70-110) mg/dL Microbiology - Last 24 Hours (Table) 11/14/22 16:15 Blood Culture - Preliminary Blood H & H 11/14/22 Range/Units 15:57 Hgb 11.6 (11.4-16.0) gm/dL Hct 36.1 (34.0-46.0) % Result Diagrams: 11/14/22 15:57 11/14/22 15:57 - Diagnostic results Hip x-ray: report reviewed, image reviewed (hip x-rays were reviewed from 10/31/2022 and 11/12/2022, no obvious dislocations or fractures present. No obvious lucencies are appreciated throughout the total hip arthroplasty components) Hip CT: report reviewed, image reviewed (report and images were reviewed from 11/14/2022. No acute fractures or dislocations. Please see report for further detail describing fluid collection) Assessment and Plan Assessment: Right hip pain History of direct anterior right total hip arthroplasty History of multiple periprosthetic right hip dislocations History of revision direct anterior right total hip arthroplasty Multiple medical comorbidities Plan: I was able to discuss the case, this including both physical exam findings and imaging studies my attending Dr. Blue. Currently recommending no emergent orthopedic surgical intervention. Taking into consideration the patient's physical exam results and laboratory findings, low probability for a periprosthetic hip infection. With patients mul tiple hip dislocations resulting in multiple closed reduction procedures along with revision surgery, I would expect chronic changes to the soft tissues and possibly abnormal wearing of the current total hip arthroplasty components which could lead to this fluid collection possibly representing a seroma. Discussion with the patient at bedside today regarding possible aspiration of the fluid in the anterior thigh. Patient states that she would have to be put out completely to have this procedure done. We'll discuss with Dr. Blue the possible options for aspiration. I also discussed with the patient the need to follow-up with a practice specialist that deals with revision total hip arthroplasty to discuss further options of treatment. Pain control, continue patient's normal pain medication DVT prophylaxis per primary medical service Weight-bear as tolerated Further recommendations Time with Patient: Less than 30
[2022-11-16] MEDS: metFORMIN 500 MG TAB PO SCH (09:00)
[2022-11-16] MEDS: NICOTINE 21MG/24HR PATCH TRANSDERM SCH (09:00)
[2022-11-16] MEDS: ATORVASTATIN 40 MG TAB PO SCH (09:00)
[2022-11-16] MEDS: LOSARTAN 25 MG TAB PO SCH (09:00)
--- NOTE | 2022-11-16 09:30 | P.CONS ---
History of Present Illness - Reason for Consult Consult date: 11/15/22 - History of Present Illness Patient is a 62-year-old female with a past medical history significant for right knee replacement in May 2021 patient subsequently did have a multiple dislocation requiring closed reduction patient is now presenting back to the hospital for evaluation of right hip pain with the patient mention has been getting worse over the last few days patient denies any history of any trauma has been describing the pain to be mostly on the lateral side of the hip area describing it to be sharp almost 7-8 out of 10 he noted radiation patient did have a CT scan of the right hip which did shows no acute fracture or dislocation there was a fluid collection intramuscular in the anterior thigh anterior to the total hip arthroplasty with concern for possible seroma versus abscess patient was started on cefazolin infectious disease was consulted for further management of antibiotic therapy patient has been afebrile during this hospital stay patient did have normal white count kidney function was normal liver enzymes are normal blood cultures obtained currently pending Past Medical History Past Medical History: CVA/TIA, Diabetes Mellitus, Eye Disorder, Hypertension, Liver Disease, Osteoarthritis (OA) Additional Past Medical History / Comment(s): Right hip dislocations, osteoarthritis right hip, past cervical and low back fractures/herniated bulging discs as well as past right elbow fracture, chronic pain, 20 yrs ago - CVA per MRI/no residuals, Hepatitis C, 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 Past Anesthesia/Blood Transfusion Reactions: No Reported Reaction Past Psychological History: Anxiety, PTSD Additional Psychological History / Comment(s): Pt resides with significant other and her cousin. Pt doesn't drive, she has 2 people she can pay to drive her places. She is otherwise independent. Smoking Status: Current every day smoker Past Alcohol Use History: None Reported Additional Past Alcohol Use History / Comment(s): smokes 2-3 cigarettes/day. Past Drug Use History: Marijuana Additional Drug Use History / Comment(s): Smokes marijuana or uses edibles occasionally. - Past Family History Mother Family Medical History: No Reported History Father Family Medical History: Hypertension Additional Family Medical History / Comment(s): Alcoholic. Medications and Allergies Home Medications Medication Instructions Recorded Confirmed Type ALPRAZolam [Xanax] 2 mg PO TID PRN 12/20/19 11/14/22 History Atorvastatin Calcium [Lipitor] 40 mg PO DAILY 11/27/21 11/14/22 History Losartan [Cozaar] 25 mg PO DAILY 11/27/21 11/14/22 History metFORMIN HCL [Glucophage] 500 mg PO DAILY 11/27/21 11/14/22 History Allergies Allergy/AdvReac Type Severity Reaction Status Date / Time oxycodone Allergy Itching Verified 11/14/22 17:10 morphine AdvReac Hallucinati Verified 11/14/22 17:10 ons Physical Exam Vitals: Vital Signs Temp Pulse Pulse Resp BP Pulse Ox 11/15/22 19:23 97.9 F 74 18 115/78 98 11/15/22 14:00 97.4 F L 70 18 153/89 98 11/15/22 07:11 98.2 F 71 16 121/64 98 11/15/22 02:10 97.7 F 66 18 119/79 97 Intake and Output 11/15/22 11/15/22 11/15/22 06:59 14:59 22:59 Intake Total 250 Output Total 2 Balance 248 Intake: Intake, IV Titration 100 Amount ceFAZolin 1,000 mg In 100 Sodium Chloride 0.9% 50 ml @ 100 mls/hr IVPB Q8HR [facility] Rx#:[id number] Oral 150 Output: Urine 2 Other: # Voids 2 1 Results CBC & Chem 7: 11/14/22 15:57 11/14/22 15:57 Labs: Abnormal Lab Results - Last 24 Hours (Table) 11/15/22 11/15/22 Range/Units 11:59 16:48 POC Glucose (mg/dL) 119 H 117 H (70-110) mg/dL Assessment and Plan Plan: 1patient presented to hospital with a right hip pain in this patient who did have a history of right hip arthroplasty in May 2021 since then the patient did have a multiple dislocation requiring closed reduction now presenting with increasing pain CT shows a fluid collection possible seroma clinically behaving as an abscess in this patient with no fever or elevated white count however not entirely excluded 2-we will check inflammatory markers 3-patient benefit from aspirate or drainage of this fluid collection which should be sent for culture 4-continue empiric cefazolin at this point We will follow on clinical condition and cultures to further adjust medication if needed Thank you for this consultation we will follow the patient along with you Time with Patient: Greater than 30
--- NOTE | 2022-11-16 15:27 | P.PN ---
Subjective Progress Note Date: 11/16/22 Principal diagnosis: Right hip pain Patient was examined today at bedside, no significant change in symptoms overnight. The midline was poor IV access. Patient has been on IV antibiotics since being admitted to the hospital. Patient is continue to ambulate with minimal difficulty. She denies headaches, lightheadedness, chest pain, shortness of breath, fever or chills. Objective - Vital Signs Vital signs: Vital Signs Temp 97.9 F 11/16/22 06:52 Pulse 73 11/16/22 06:52 Resp 16 11/16/22 06:52 BP 131/87 11/16/22 06:52 Pulse Ox 99 11/16/22 06:52 FiO2 Intake & Output 11/15/22 11/16/22 11/16/22 18:59 06:59 18:59 Intake Total 250 50 Output Total 2 Balance 248 50 Intake: Intake, IV Titration 100 50 Amount ceFAZolin 1,000 mg In 100 50 Sodium Chloride 0.9% 50 ml @ 100 mls/hr IVPB Q8HR [facility] Rx#:[id number] Oral 150 Output: Urine 2 Other: Voiding Method Toilet # Voids 1 2 - Exam Right lower extremity: Well-healed incision over the anterior aspect of the upper thigh, there is no redness or open lesions present. I am able to appreciate some fullness in the anterior thigh medial to the incision. No significant tenderness is reproduced with palpation in that area. Patient demonstrates generalized soreness with palpation throughout the lateral aspect of the thigh. Logroll maneuver of the extremity reproduces minimal discomfort. Patient is able to actively flex and extend the hip, she states this does cause some d iscomfort more on the anterior lateral aspect of the thigh versus the groin. Patient is able to straight leg raise and minimal difficulty Knee flexion, knee extension, plantar flexion, dorsiflexion, EHL, FHL are intact Calf is soft, no tenderness with palpation Sensory exam to light touch is intact throughout the extremity Dorsalis pedis pulses 2+ - Labs CBC & Chem 7: 11/14/22 15:57 11/14/22 15:57 Labs: Abnormal Lab Results - Last 24 Hours (Table) 11/15/22 11/15/22 11/16/22 Range/Units 16:48 20:16 05:50 POC Glucose (mg/dL) 117 H 171 H 134 H (70-110) mg/dL Microbiology - Last 24 Hours (Table) 11/14/22 16:15 Blood Culture - Preliminary Blood Assessment and Plan Assessment: Right hip pain History of direct anterior right total hip arthroplasty History of multiple periprosthetic right hip dislocations History of revision direct anterior right total hip arthroplasty Multiple medical comorbidities Plan: I was again able to review patient's findings, as to include imaging, labs and physical exam findings with my attending Dr. Blue. We also spoke with Dr. Mario from infectious disease regarding this patient. Clinically this patient does not present like an active infection to the right hip. At this time we are not recommending an aspiration of the fluid in the right anterior thigh. We are not recommending emergent orthopedic surgical intervention. There is a high possibility that there is wearing of the polyethylene liner of her hip replacement which could be causing this abnormal fluid collection in the anterior thigh. Patient has dealt with pain in this right hip for quite some time and I anticipate that this fluid collection has been present. I again discussed with her today the importance of managing her current symptoms to try to improve the pain with hopeful discharge to home. I explained to her that we would work with our office staff to get her scheduled with compliance review specialist to discuss and review her current case for possible surgical options. Pain control, continue patient's normal pain medication DVT prophylaxis per primary medical service Weight-bear as tolerated No acute signs of active infection involving the right hip, would not recommend use of antibiotics at this time Discharge planning: On an orthopedic standpoint patient is stable for discharge pending pain control Time with Patient: Less than 30
[2022-11-16 16:40] LABS: Glucose,Whole Blood 141 mg/dL (70-110)
[2022-11-16 21:30] LABS: Glucose,Whole Blood 147 mg/dL (70-110)
[2022-11-17] MEDS: HYDROcodone/APAP 5-325MG 1 EACH TAB PO PRN ×3 (00:27→15:13)
[2022-11-17 05:50] LABS: Glucose,Whole Blood 144 mg/dL (70-110)
[2022-11-17] MEDS: HYDROmorphone 0.5 MG/0.5 ML SYRINGE IVP PRN ×4 (07:36→16:39)
[2022-11-17] MEDS: ALPRAZolam 1 MG TAB PO PRN ×2 (07:36→15:13)
[2022-11-17] MEDS: NICOTINE 21MG/24HR PATCH TRANSDERM SCH (08:14)
[2022-11-17] MEDS: LOSARTAN 25 MG TAB PO SCH (08:14)
[2022-11-17] MEDS: ATORVASTATIN 40 MG TAB PO SCH (08:14)
[2022-11-17] MEDS: metFORMIN 500 MG TAB PO SCH (08:14)
[2022-11-17 11:13] LABS: Glucose,Whole Blood 113 mg/dL (70-110)
--- NOTE | 2022-11-17 13:18 | P.PN ---
Subjective Progress Note Date: 11/16/22 Principal diagnosis: Right hip pain and abnormal CT Patient is a 62-year-old female with a past medical history significant for right knee replacement in May 2021 patient subsequently did have a multiple dislocation requiring closed reduction patient is now presenting back to the hospital for evaluation of right hip pain,patient did have a CT scan of the right hip which did shows no acute fracture or dislocation there was a fluid collection intramuscular in the anterior thigh anterior to the total hip arthroplasty with concern for possible seroma versus abscess, patient however did not have any fever or elevated white count. On today's evaluation that is 11/16/2022, the patient denies having any fever or any chills, patient is still complaining of pain to the right lateral hip area however controlled with current pain medication not just pain or shortness of breath or cough no abdominal pain or diarrhea Objective - Vital Signs Vital signs: Vital Signs Temp 98.6 F 11/16/22 06:52 Pulse 96 11/16/22 06:52 Resp 14 11/16/22 06:52 BP 138/85 11/16/22 06:52 Pulse Ox 98 11/16/22 06:52 FiO2 Intake & Output 11/15/22 18:59 Intake Total 50 Balance 50 Intake: Intake, IV Titration 50 Amount ceFAZolin 1,000 mg In 50 Sodium Chloride 0.9% 50 ml @ 100 mls/hr IVPB Q8HR [facility] Rx#:[id number] Other: Voiding Method # Voids 3 # Bowel Movements 1 - Exam GENERAL DESCRIPTION: Middle-age female lying in bed in no distress RESPIRATORY SYSTEM: Unlabored breathing , decreased breath sounds at bases HEART: S1 S2 regular rate and rhythm , ABDOMEN: Soft , no tenderness EXTREMITIES: Right lateral thigh did have small bruise no redness no warmth no drainage - Labs CBC & Chem 7: 11/14/22 15:57 11/14/22 15:57 Labs: Abnormal Lab Results - Last 24 Hours (Table) 11/16/22 11/16/22 11/17/22 Range/Units 16:37 21:24 05:48 POC Glucose (mg/dL) 141 H 147 H 144 H (70-110) mg/dL 11/17/22 Range/Units 11:12 POC Glucose (mg/dL) 113 H (70-110) mg/dL Microbiology - Last 24 Hours (Table) 11/14/22 16:15 Blood Culture - Preliminary Blood Assessment and Plan (1) Right hip pain Current Visit: No Status: Acute Code(s): M25.551 - PAIN IN RIGHT HIP SNOMED Code(s): 63106251 Plan: 1patient presented to hospital with a right hip pain in this patient who did have a history of right hip arthroplasty in May 2021 since then the patient did have a multiple dislocation requiring closed reduction now presenting with increasing pain CT shows a fluid collection possible seroma clinically behaving as an abscess in this patient with no fever or elevated white count however not entirely excluded 2--patient benefit from aspirate or drainage of this fluid collection which should be sent for culture, however the patient is refusing a bedside drainage, detailed discussion with the orthopedic surgeon for the patient is afebrile normal white count no evidence of cellulitis of the right hip area making abscess to be less likely and the patient refusing bedside aspirate of this collection hence recommended close observation and treating as seroma 3-May continue empiric cefazolin at this point Time with Patient: Less than 30
--- NOTE | 2022-11-17 13:20 | P.PN ---
Subjective Progress Note Date: 11/17/22 Principal diagnosis: Right hip pain and abnormal CT Patient is a 62-year-old female with a past medical history significant for right knee replacement in May 2021 patient subsequently did have a multiple dislocation requiring closed reduction patient is now presenting back to the hospital for evaluation of right hip pain,patient did have a CT scan of the right hip which did shows no acute fracture or dislocation there was a fluid collection intramuscular in the anterior thigh anterior to the total hip arthroplasty with concern for possible seroma versus abscess, patient however did not have any fever or elevated white count. On today's evaluation that is 11/17/2022, the patient remains to be afebrile, patient pain to the right lateral hip area has decreased in intensity, the patient denies having any chest pain shortness of breath or cough no abdominal pain or diarrhea Objective - Vital Signs Vital signs: Vital Signs Temp 98.6 F 11/17/22 07:47 Pulse 96 11/17/22 07:47 Resp 14 11/17/22 07:47 BP 138/85 11/17/22 07:47 Pulse Ox 98 11/17/22 07:47 FiO2 Intake & Output 11/16/22 11/17/22 11/17/22 18:59 06:59 18:59 Intake Total 50 50 Balance 50 50 Intake: Intake, IV Titration 50 50 Amount ceFAZolin 1,000 mg In 50 50 Sodium Chloride 0.9% 50 ml @ 100 mls/hr IVPB Q8HR [facility] Rx#:[id number] Other: Voiding Method Toilet # Voids 3 2 # Bowel Movements 1 - Exam GENERAL DESCRIPTION: Middle-age female lying in bed in no distress RESPIRATORY SYSTEM: Unlabored breathing , decreased breath sounds at bases HEART: S1 S2 regular rate and rhythm , ABDOMEN: Soft , no tenderness EXTREMITIES: Right lateral thigh did have small bruise no redness no warmth no drainage - Labs CBC & Chem 7: 11/14/22 15:57 11/14/22 15:57 Labs: Abnormal Lab Results - Last 24 Hours (Table) 11/16/22 11/16/22 11/17/22 Range/Units 16:37 21:24 05:48 POC Glucose (mg/dL) 141 H 147 H 144 H (70-110) mg/dL 11/17/22 Range/Units 11:12 POC Glucose (mg/dL) 113 H (70-110) mg/dL Microbiology - Last 24 Hours (Table) 11/14/22 16:15 Blood Culture - Preliminary Blood Assessment and Plan (1) Right hip pain Current Visit: No Status: Acute Code(s): M25.551 - PAIN IN RIGHT HIP SNOMED Code(s): 15469454 Plan: 1patient presented to hospital with a right hip pain in this patient who did have a history of right hip arthroplasty in May 2021 since then the patient did have a multiple dislocation requiring closed reduction now presenting with increasing pain CT shows a fluid collection possible seroma clinically behaving as an abscess in this patient with no fever or elevated white count however not entirely excluded 2--patient benefit from aspirate or drainage of this fluid collection which should be sent for culture, however the patient is refusing a bedside drainage, detailed discussion with the orthopedic surgeon for the patient is afebrile normal white count no evidence of cellulitis of the right hip area making abscess to be less likely and the patient refusing bedside aspirate of this collection , patient has been strongly advised to follow-up with the referring orthopedic surgeon for revision of the right hip arthroplasty, with low clinical suspicious for infection antibodies can be safely discontinued Time with Patient: Less than 30
[2022-11-17 14:23] VITALS: BP 145/83; PULSE 78; RESP 16; TEMP 98.4
--- NOTE | 2022-11-18 01:06 | HP ---
HISTORY AND PHYSICAL CHIEF COMPLAINT: Pain in the right hip with possible abscess. HISTORY OF PRESENT ILLNESS: This is another admission for this 62-year-old white female who had a right hip replacement several years ago and has continued to have problems. She has had recurrent dislocations and despite all efforts, she has continued to have difficulty. She also is well known for requiring frequent and high doses of narcotics. She was in the office recently requesting more narcotics to help cover her pain until she has an appointment at [facility] on April 15. She was told at that time that we would try to get her in to another facility before that. She then went to the hospital where it was discovered that she may have a fluid-filled space in front of the right hip which could be an abscess, blood, or seroma. She is not febrile and white count is normal. She was admitted. REVIEW OF SYSTEMS: She has had no other symptoms. PAST MEDICAL HISTORY, ALLERGIES, FAMILY HISTORY AND PERSONAL AND SOCIAL HISTORIES: Reveal that she is allergic to OxyContin, fentanyl, morphine. MEDICATIONS: She is on, 1. Xanax. 2. Atorvastatin. 3. Iron. 4. Losartan. 5. Metformin. 6. Vitamin D. She does continue to smoke. PHYSICAL EXAMINATION: VITAL SIGNS: Blood pressure is 140/87 with a pulse of 81, respirations of 32, and she is afebrile. GENERAL: She appeared well developed, well nourished, no acute distress. SKIN: Color is normal. Skin is warm, dry. HEENT: Head, ears, eyes, nose, mouth and throat were normal except for absence of the left eye. CHEST: Clear. CARDIAC: Normal. ABDOMEN: Soft and nontender. EXTREMITIES: Normal except for the right hip, which is irritable. IMPRESSION: 1. Chronic pain in the right hip with recurrent dislocations and possible abscess or seroma. 2. COPD. 3. Narcotic abuse. PLAN: 1. Bed rest. 2. IV fluids. 3. Consult with Orthopedics and Infectious Disease. MMODL / IJN: [id number] /
--- NOTE | 2022-11-18 01:06 | DS ---
DISCHARGE SUMMARY CHIEF COMPLAINT: Pain in the right hip. HISTORY OF PRESENT ILLNESS AND PHYSICAL EXAMINATION: Details of this lady's history and physical can be found in the initial workup. LABORATORY STUDIES: While she is in a hospital, she had laboratory studies, details of which can be found in the laboratory section of her chart. COURSE IN HOSPITAL: After admission, she was placed on bedrest, started on intravenous fluids and seen in consult by Orthopedics and Infectious Disease. Her white count was normal. She had no fever or chills. Infectious Disease and Orthopedics concurred that this likely was not due to infection and that she could be discharged and followed as an outpatient and orthopedics will make arrangements for her to be seen sooner in the [facility]. FINAL DIAGNOSES: 1. Right hip pain. 2. Status post multiple subluxations of right hip prosthesis. 3. Cystic mass associated with the right hip. 4. Chronic obstructive pulmonary disease. 5. Narcotic abuse. OPERATIONS: None. CONSULTATIONS: Infectious Disease and Orthopedics. She is improved. MMODL / IJN: [id number] /
== END 2022-11-17 18:10 | disposition home or self-care (01) ==
LOC: EC 14:27 → 4SSUR 16:32
PROVIDERS: ADMIT Family Medicine; ATTEND Family Medicine
DX: M25.851 Other specified joint disorders, right hip (principal); T84.020D Dislocation of internal right hip prosthesis, subsequent encounter; I10 Essential (primary) hypertension; E11.9 Type 2 diabetes mellitus without complications; G89.29 Other chronic pain; B19.20 Unspecified viral hepatitis C without hepatic coma; H54.62 Unqualified visual loss, left eye, normal vision right eye; F43.10 Post-traumatic stress disorder, unspecified; F12.90 Cannabis use, unspecified, uncomplicated; F17.210 Nicotine dependence, cigarettes, uncomplicated; F41.9 Anxiety disorder, unspecified; Z86.73 Personal history of transient ischemic attack (TIA), and cerebral infarction without residual deficits; Z79.899 Other long term (current) drug therapy; Z79.84 Long term (current) use of oral hypoglycemic drugs; Z88.5 Allergy status to narcotic agent; Z96.641 Presence of right artificial hip joint; Z82.49 Family history of ischemic heart disease and other diseases of the circulatory system; Z81.1 Family history of alcohol abuse and dependence; Z96.651 Presence of right artificial knee joint; Y83.4 Other reconstructive surgery as the cause of abnormal reaction of the patient, or of later complication, without mention of misadventure at the time of the procedure
CPT/HCPCS: 96376 ×4; 96366 ×4; 96365 ×3; 96375; 99285; 36415; 36410; 76937; 80053; 85025; 86140; 87040; 73700; G0378 ×4; C1751; S4990 ×3; J2060; J0690 ×4; J1170 ×4; 93005

== ENCOUNTER → 2023-01-07 | Outpatient (CLI) | payer MEDICARE, OTHER ==
--- NOTE | 2023-01-08 07:39 | MM ---
Reason for Exam: Screening (asymptomatic). Last mammogram was performed 2 year(s) and 7 month(s) ago. Patient History: Menarche at age 12. First Full-Term at age 19. Postmenopausal. Paternal grandmother had breast cancer, age 70. Risk Values: Annie 5 year model risk: 1.1%. NCI Lifetime model risk: 5.0%. Prior Study Comparison: 08/01/2008 Bilateral Screening Mammogram, [facility]. 01/30/2014 Bilateral Screening Mammogram, [facility]. 11/09/2018 Bilateral Screening Mammogram, [facility]. Tissue Density: There are scattered fibroglandular densities. Findings: Analyzed By CAD. There is no suspicious group of microcalcifications within either breast. No new suspicious mass within the right breast. Ovoid 8 mm mass within the upper outer left breast at posterior depth. Probable lymph node. Not visualized on prior exam. No architectural distortion. Overall Assessment: Incomplete: need additional imaging evaluation, BI-RAD 0 Management: Diagnostic Breast Ultrasound of the left breast. A clinical breast exam by your physician is recommended on an annual basis and results should be correlated with mammographic findings. [facility] will attempt to contact patient to return for supplemental views and ultrasound if indicated. Note on Annie scores and lifetime risk: 1. A Annie score greater than 3% is considered moderate risk. If this is the case, consider specialist referral to assess eligibility for a risk reducing agent. If overall lifetime risk for the development of breast cancer is 20% or higher, the patient may qualify for future screening with alternating mammogram and breast MRI. Electronically signed and approved by: Mario Kennedy D.O.
== END | disposition home or self-care (01) ==
LOC: RADMAMWWP 10:43
PROVIDERS: ATTEND Family Medicine
DX: Z12.31 Encounter for screening mammogram for malignant neoplasm of breast (principal); Z78.0 Asymptomatic menopausal state; Z80.3 Family history of malignant neoplasm of breast
CPT/HCPCS: 77063; 77067

== ENCOUNTER → 2023-01-14 | Outpatient (CLI) | payer MEDICARE, OTHER ==
--- NOTE | 2023-01-14 09:11 | USB ---
Patient History: Menarche at age 12. First Full-Term at age 19. Postmenopausal. Paternal grandmother had breast cancer, age 70. Risk Values: Annie 5 year model risk: 1.1%. NCI Lifetime model risk: 5.0%. Technique: Method: Targeted. Prior Study Comparison: 11/09/2018 Bilateral Screening Mammogram, [facility]. 05/31/2020 Bilateral Screening Mammogram, [facility]. 01/07/2023 Bilateral MG 3D screening mammo w/cad, [facility]. Findings: The upper outer quadrant of the left breast, the axilla of the left breast and the retroareolar of the left breast were scanned. Targeted ultrasound left breast 12:00 to 4:00 including the subareolar region and axilla. At the 4:00 position, 8 cm from the nipple, there is a small 6 mm lymph node, likely mammographic correlate. As this nodule on mammogram was not previously seen, precautionary six-month follow-up is recommended. Overall Assessment: Probably benign, BI-RAD 3 Management: Diagnostic Mammogram of the left breast in 6 months. A clinical breast exam by your physician is recommended on an annual basis and results should be correlated with mammographic findings. This exam should not preclude additional follow-up of suspicious palpable abnormalities. Results were given to the patient verbally at the time of exam. Electronically signed and approved by: Jessica Collins M.D. Radiologist
== END | disposition home or self-care (01) ==
LOC: RADUSWWP 08:32
PROVIDERS: ATTEND Family Medicine
DX: R92.8 Other abnormal and inconclusive findings on diagnostic imaging of breast (principal); Z78.0 Asymptomatic menopausal state; Z80.3 Family history of malignant neoplasm of breast

== ENCOUNTER → 2023-07-16 | Outpatient (CLI) | payer MEDICARE, OTHER ==
--- NOTE | 2023-07-16 11:36 | MM ---
Reason for Exam: Follow-up at short interval from prior study. Last screening mammogram was performed 7 month(s) ago. Patient History: Menarche at age 12. First Full-Term at age 19. Postmenopausal. Paternal grandmother had breast cancer, age 70. Risk Values: Annie 5 year model risk: 1.1%. NCI Lifetime model risk: 4.9%. Prior Study Comparison: 11/09/2018 Bilateral Screening Mammogram, [facility]. 05/31/2020 Bilateral Screening Mammogram, [facility]. 01/07/2023 Bilateral MG 3D screening mammo w/cad, [facility]. Tissue Density: Left: There are scattered areas of fibroglandular density. Findings: Analyzed By CAD. No nodules or masses seen. No suspicious calcifications seen. Overall Assessment: Negative, BI-RAD 1 Management: Screening Mammogram of both breasts in 1 year. . The patient did not receive results at the time of exam review. Patient should continue monthly self-breast exams. A clinical breast exam by your physician is recommended on an annual basis. This exam should not preclude additional follow-up of suspicious palpable abnormalities. Note on Annie scores and lifetime risk: 1. A Annie score greater than 3% is considered moderate risk. If this is the case, consider specialist referral to assess eligibility for a risk reducing agent. 2. If overall lifetime risk for the development of breast cancer is 20% or higher, the patient may qualify for future screening with alternating mammogram and breast MRI. Electronically signed and approved by: Ananth Mitchell M.D. Radiologis
== END | disposition home or self-care (01) ==
LOC: RADMAMWWP 10:57
PROVIDERS: ATTEND Family Medicine
DX: R92.322 Mammographic fibroglandular density, left breast (principal); Z78.0 Asymptomatic menopausal state; Z80.3 Family history of malignant neoplasm of breast
CPT/HCPCS: 77061; 77065

== ENCOUNTER 2023-09-23 11:49 | Emergency (ER) | payer MEDICARE, OTHER ==
--- NOTE | 2023-09-23 12:52 | ED ---
Lower Extremity Injury HPI - General Source: patient, RN notes reviewed Mode of arrival: EMS Limitations: no limitations <Yelena Vance - Last Filed: 09/23/23 12:49> <Yared Kerr - Last Filed: 09/23/23 14:09> - General Chief Complaint: Extremity Injury, Lower Stated Complaint: Fall-R hip injury Time Seen by Provider: 09/23/23 12:02 - History of Present Illness Initial Comments: Lashawn sweet is a 63-year-old female who presents emergency department via EMS chief complaint of a fall. Patient states that yesterday she was walking on the stairs to do laundry when she tripped and fell hurting her right hip and foot. Denies hitting her head or loss of consciousness at this time. States that she has had a joint replacement of her right hip. Patient denies use of blood thinners. (Yelena Vance) - Related Data Home Medications Medication Instructions Recorded Confirmed ALPRAZolam [Xanax] 2 mg PO TID PRN 12/20/19 11/14/22 Atorvastatin Calcium [Lipitor] 40 mg PO DAILY 11/27/21 11/14/22 Losartan [Cozaar] 25 mg PO DAILY 11/27/21 11/14/22 metFORMIN HCL [Glucophage] 500 mg PO DAILY 11/27/21 11/14/22 Allergies Allergy/AdvReac Type Severity Reaction Status Date / Time oxycodone Allergy Itching Verified 09/23/23 11:53 morphine AdvReac Hallucinati Verified 09/23/23 11:53 ons Review of Systems ROS Other: All systems not noted in ROS Statement are negative. <Yelena Vance - Last Filed: 09/23/23 12:49> ROS Other: All systems not noted in ROS Statement are negative. <Yared Kerr - Last Filed: 09/23/23 14:09> ROS Statement: Those systems with pertinent positive or pertinent negative responses have been documented in the HPI. 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 Past Anesthesia/Blood Transfusion Reactions: No Reported Reaction Past Psychological History: Anxiety, PTSD Smoking Status: Current every day smoker Past Alcohol Use History: None Reported Past Drug Use History: Marijuana - Past Family History Mother Family Medical History: No Reported History Father Family Medical History: Hypertension Additional Family Medical History / Comment(s): Alcoholic. <Yelena Vance - Last Filed: 09/23/23 12:49> General Exam Limitations: no limitations <Yelena Vance - Last Filed: 09/23/23 12:49> General appearance: alert, in no apparent distress Head exam: Present: atraumatic, normocephalic Eye exam: Present: other (Ptosis of the left eyelid, corneal clouding left eye) ENT exam: Present: normal exam Neck exam: Present: normal inspection Respiratory exam: Present: normal lung sounds bilaterally. Absent: respiratory distress Cardiovascular Exam: Present: regular rate, normal rhythm GI/Abdominal exam: Present: soft. Absent: distended, tenderness Extremities exam: Present: other (Soft tissue swelling of the right ankle and foot, distal pulses intact, no gross deformity) Neurological exam: Present: alert, oriented X3, CN II-XII intact. Absent: motor sensory deficit Psychiatric exam: Present: normal affect, normal mood Skin exam: Present: warm, dry, intact <Yared Kerr - Last Filed: 09/23/23 14:09> - General Exam Comments Initial Comments: Visual Physical Exam Vital signs reviewed General: Well-appearing, nontoxic, no acute distress. Head: Normocephalic, atraumatic Eyes: PERRLA, EOMI ENT: Airway patent Chest: Nonlabored breathing Skin: No visual rash, normal skin tone Neuro: Alert and oriented 3 Musculoskeletal: No gross abnormalities (Yelena Vance) Course Vital Signs 09/23/23 11:50 Temperature 98.5 F Pulse Rate 96 Respiratory 20 Rate Blood Pressure 110/71 O2 Sat by Pulse 95 Oximetry Medical Decision Making <Yelena Vance - Last Filed: 09/23/23 12:49> <Yared Kerr - Last Filed: 09/23/23 14:09> - Medical Decision Making I completed the quick note portion of this chart signed Yelena Vance PA-C (Yelena Vance) Was pt. sent in by a medical professional or institution (HOLDEN Perera, TURBINE OPERATOR, urgent care, hospital, or fci...) When possible be specific @ -No Did you speak to anyone other than the patient for history (EMS, parent, family, police, friend...)? What history was obtained from this source @ -No Did you review nursing and triage notes (agree or disagree)? Why? @ -I reviewed and agree with nursing and triage notes Were old charts reviewed (outside hosp., previous admission, EMS record, old EKG, old radiological studies, urgent care reports/EKG's, fci records)? Report findings @ -No old charts were reviewed Differential Musculoskeletal Muscular strain, contusion, ligament sprain, fracture, arthritis, septic arthritis, bursitis, cellulitis, muscle spasm, nerve compression, DVT, arterial occlusion, herpes zoster, electrolyte abnormality, tumor.... This is not meant to be in all inclusive list EKG interpreted by me (3pts min.). @ -As above X-rays interpreted by me (1pt min.). @X-rays of the right foot and ankle and right hip are negative for displaced fracture. CT interpreted by me (1pt min.). @ -None done U/S interpreted by me (1pt. min.). @ -None done What testing was considered but not performed or refused? (CT, X-rays, U/S, labs)? Why? @ -None What meds were considered but not given or refused? Why? @ -None Did you discuss the management of the patient with other professionals (professionals i.e. HOLDEN Perera, TURBINE OPERATOR, lab, RT, psych nurse, adoption social worker, collar turner, teacher, commissioned police officer, rehabilitation case coordinator)? Give summary @ -No Was smoking cessation discussed for >3mins.? @ -No Was critical care preformed (if so, how long)? @ -No Were there social determinants of health that impacted care today? How? (Homelessness, low income, unemployed, alcoholism, drug addiction, transportation, low edu. Level, literacy, decrease access to med. care, senior care, rehab)? @ -No Was there de-escalation of care discussed even if they declined (Discuss DNR or withdrawal of care, Hospice)? DNR status @ -No What co-morbidities impacted this encounter? (DM, HTN, Smoking, COPD, CAD, Cancer, CVA, ARF, Chemo, Hep., AIDS, mental health diagnosis, sleep apnea, morbid obesity)? @ -None Was patient admitted / discharged? Hospital course, mention meds given and route, prescriptions, significant lab abnormalities, going to OR and other pertinent info. @ -63-year-old female with fall which occurred yesterday, mechanical fall with right foot and ankle and right hip pain. No displaced fracture or dislocation on x-ray. Patient will ice and elevate the extremity, take Tylenol Motrin for pain. Follow-up with primary care provider. Return with worsening or changing symptoms. Undiagnosed new problem with uncertain prognosis? @ -No Drug Therapy requiring intensive monitoring for toxicity (Heparin, Nitro, Insulin, Cardizem)? @ -No Were any procedures done? @ -No Diagnosis/symptom? @ -Fall, sprain of the right ankle and right hip. Acute, or Chronic, or Acute on Chronic? @ -[Acute Uncomplicated (without systemic symptoms) or Complicated (systemic symptoms)? @ -Default Side effects of treatment? @ -No Exacerbation, Progression, or Severe Exacerbation? @ -No Poses a threat to life or bodily function? How? (Chest pain, [place], [place], pneumonia, PE, COPD, DKA, ARF, appy, cholecystitis, CVA, Diverticulitis, Homicidal, Suicidal, threat to staff... and all critical care pts) @ -No (Yared Kerr) Disposition <Yelena Vance - Last Filed: 09/23/23 12:49> Is patient prescribed a controlled substance at d/c from ED?: No Time of Disposition: 14:09 <Yared Kerr - Last Filed: 09/23/23 14:09> Clinical Impression: S/P total right hip arthroplasty, Right ankle sprain Disposition: HOME SELF-CARE Condition: Fair Instructions (If sedation given, give patient instructions): Ankle Sprain (ED), Foot Contusion (ED) Referrals: Freddy Hernandez MD [Primary Care Provider] - 1-2 days
--- NOTE | 2023-09-23 13:14 | XR ---
EXAMINATION TYPE: XR Hip Limited RT DATE OF EXAM: 09/23/2023 1:10 PM CLINICAL INDICATION:Female, 63 years old with history of Injury; COMPARISON: None. TECHNIQUE: XR Hip Limited RT; hip was examined in the frontal and lateral projections. FINDINGS: Post arthroplasty changes, hardware is intact, alignment is appropriate. No evidence of fra cture. Postoperative changes of the soft tissues with subcutaneous gas. No evidence of any acute osse ous pathology or joint dislocation. IMPRESSION: Hip arthroplasty with hardware intact and in appropriate alignment. No acute fracture.
--- NOTE | 2023-09-23 13:18 | XR ---
EXAMINATION TYPE: XR foot complete RT, XR ankle complete RT DATE OF EXAM: 09/23/2023 1:11 PM CLINICAL INDICATION:Female, 63 years old with history of fall, pain; COMPARISON: None TECHNIQUE: XR foot complete RT, XR ankle complete RT examined in the AP, oblique, and lateral project ions. FINDINGS: No evidence of any acute osseous pathology. Soft tissue swelling over the dorsal foot. Joints are pre served. Multifocal degeneration changes throughout the joints of the foot with osteophyte formation a nd joint space narrowing. Calcaneal plantar spurring is present. Calcaneal Achilles enthesophyte. IMPRESSION: Soft tissue swelling over the dorsal foot without evidence of acute fracture.
[2023-09-23 15:06] VITALS: BP 112/87; PULSE 87; RESP 18; TEMP 98
== END 2023-09-23 14:24 | disposition home or self-care (01) ==
LOC: EC 11:49
DX: S93.401A Sprain of unspecified ligament of right ankle, initial encounter (principal); M12.551 Traumatic arthropathy, right hip; F17.200 Nicotine dependence, unspecified, uncomplicated; Z88.5 Allergy status to narcotic agent; Z88.8 Allergy status to other drugs, medicaments and biological substances; W01.0XXA Fall on same level from slipping, tripping and stumbling without subsequent striking against object, initial encounter; Y93.01 Activity, walking, marching and hiking
CPT/HCPCS: 73501; 99283

== ENCOUNTER 2023-12-07 12:50 | Emergency (ER) | payer MEDICARE, OTHER ==
[2023-12-07 12:59] VITALS: BP 147/89; PULSE 74; RESP 18; TEMP 98.2
[2023-12-07] MEDS: HYDROmorphone 1 MG/ML 1 ML SYRINGE IM STA (13:12)
--- NOTE | 2023-12-07 14:24 | XR ---
EXAMINATION TYPE: XR Hip RT and AP Pelvis DATE OF EXAM: 12/07/2023 2:13 PM CLINICAL INDICATION:Female, 63 years old with history of pain; [facility] COMPARISON: None. TECHNIQUE: XR Hip RT and AP Pelvis; hip was examined in the frontal and lateral projections and a AP pelvis. FINDINGS: Post arthroplasty changes, hardware is intact, alignment is appropriate. No evidence of fra cture. No evidence of any acute osseous pathology or joint dislocation. IMPRESSION: Hip arthroplasty with hardware intact and in appropriate alignment. No acute fracture.
--- NOTE | 2023-12-07 14:52 | ED ---
Extremity Problem HPI - General Chief complaint: Extremity Problem,Nontraumatic Stated complaint: Right sided hip pain Time Seen by Provider: 12/07/23 12:52 Source: patient, EMS, RN notes reviewed Mode of arrival: EMS Limitations: no limitations - History of Present Illness Initial comments: 63-year-old female presents emergency department with chief complaint of right hip pain. Patient states she had no new injury she has had 4 prior surgeries this is acute on chronic pain. She takes [place] 10 mg daily several times. Patient patient denies any back pain denies any leg paresthesias. Patient denies any progressive chills no redness no trauma. - Related Data Home Medications Medication Instructions Recorded Confirmed ALPRAZolam [Xanax] 2 mg PO TID PRN 12/20/19 11/14/22 Atorvastatin Calcium [Lipitor] 40 mg PO DAILY 11/27/21 11/14/22 Losartan [Cozaar] 25 mg PO DAILY 11/27/21 11/14/22 metFORMIN HCL [Glucophage] 500 mg PO DAILY 11/27/21 11/14/22 Allergies Allergy/AdvReac Type Severity Reaction Status Date / Time oxycodone Allergy Itching Verified 09/23/23 11:53 morphine AdvReac Hallucinati Verified 09/23/23 11:53 ons Review of Systems ROS Statement: Those systems with pertinent positive or pertinent negative responses have been documented in the HPI. ROS Other: All systems not noted in ROS Statement are negative. 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 Past Anesthesia/Blood Transfusion Reactions: No Reported Reaction Past Psychological History: Anxiety, PTSD Smoking Status: Current every day smoker Past Alcohol Use History: None Reported Past Drug Use History: Marijuana - Past Family History Mother Family Medical History: No Reported History Father Family Medical History: Hypertension Additional Family Medical History / Comment(s): Alcoholic. General Exam Limitations: no limitations General appearance: alert, in no apparent distress Neck exam: Present: normal inspection, full ROM. Absent: tenderness, meningismus, lymphadenopathy Respiratory exam: Present: normal lung sounds bilaterally. Absent: respiratory distress, wheezes, rales, rhonchi, stridor Cardiovascular Exam: Present: regular rate, normal rhythm, normal heart sounds. Absent: systolic murmur, diastolic murmur, rubs, gallop, clicks Extremities exam: Present: other (Mild right hip tenderness no shortening or rotation full range of motion) Back exam: Present: full ROM. Absent: tenderness Neurological exam: Present: alert, oriented X3, CN II-XII intact, reflexes normal. Absent: motor sensory deficit Skin exam: Present: warm, dry, intact, normal color. Absent: rash Course Vital Signs 12/07/23 12:54 Temperature 98.2 F Pulse Rate 74 Respiratory 18 Rate Blood Pressure 147/89 O2 Sat by Pulse 98 Oximetry Medical Decision Making - Medical Decision Making Was pt. sent in by a medical professional or institution (HOLDEN Perera, FINANCIAL AUDITOR, urgent care, hospital, or long-term...) When possible be specific @ -No Did you speak to anyone other than the patient for history (EMS, parent, family, police, friend...)? What history was obtained from this source @ -No Did you review nursing and triage notes (agree or disagree)? Why? @ -I reviewed and agree with nursing and triage notes Were old charts reviewed (outside hosp., previous admission, EMS record, old EKG, old radiological studies, urgent care reports/EKG's, long-term records)? Report findings @ -No old charts were reviewed Differential Diagnosis (chest pain, altered mental status, abdominal pain women, abdominal pain men, vaginal bleeding, weakness, fever, dyspnea, syncope, headache, dizziness, GI bleed, back pain, seizure, CVA, palpatations, mental health, musculoskeletal)? @ -Right hip pain, right hip dislocation EKG interpreted by me (3pts min.). @ -None X-rays interpreted by me (1pt min.). @ -X-ray right hip stable postoperative changes no acute changes CT interpreted by me (1pt min.). @ -None done U/S interpreted by me (1pt. min.). @ -None done What testing was considered but not performed or refused? (CT, X-rays, U/S, labs)? Why? @ -None What meds were considered but not given or refused? Why? @ -None Did you discuss the management of the patient with other professionals (professionals i.e. , PA, FINANCIAL AUDITOR, lab, RT, psych nurse, licensed clinical social worker, healthcare economics consultant, teacher, commercial loan officer, case resource manager)? Give summary @ -No Was smoking cessation discussed for >3mins.? @ -No Was critical care preformed (if so, how long)? @ -No Were there social determinants of health that impacted care today? How? (Homelessness, low income, unemployed, alcoholism, drug addiction, transportation, low edu. Level, literacy, decrease access to med. care, penitentiary, rehab)? @ -No Was there de-escalation of care discussed even if they declined (Discuss DNR or withdrawal of care, Hospice)? DNR status @ -No What co-morbidities impacted this encounter? (DM, HTN, Smoking, COPD, CAD, Cancer, CVA, ARF, Chemo, Hep., AIDS, mental health diagnosis, sleep apnea, morbid obesity)? @ -None Was patient admitted / discharged? Hospital course, mention meds given and route, prescriptions, significant lab abnormalities, going to OR and other pertinent info. @ -AMA patient updated on x-ray results patient became belligerent yelling, screaming profanities about her pain and stating that she needed multiple more milligrams of Dilaudid she refuses lidocaine patch and patient walked out of the room with no difficulty Undiagnosed new problem with uncertain prognosis? @ -No Drug Therapy requiring intensive monitoring for toxicity (Heparin, Nitro, Insulin, Cardizem)? @ -No Were any procedures done? @ -No Diagnosis/symptom? @ -Hip pain right Acute, or Chronic, or Acute on Chronic? @ -Acute on chronic Uncomplicated (without systemic symptoms) or Complicated (systemic symptoms)? @ -Uncomplicated Side effects of treatment? @ -No Exacerbation, Progression, or Severe Exacerbation? @ -No Poses a threat to life or bodily function? How? (Chest pain, [place], [place], pneumonia, PE, COPD, DKA, ARF, appy, cholecystitis, CVA, Diverticulitis, Homicidal, Suicidal, threat to staff... and all critical care pts) @ -No Disposition Clinical Impression: Right hip pain Disposition: LEFT AGAINST MEDICAL ADVICE Is patient prescribed a controlled substance at d/c from ED?: No Referrals: Freddy Hernandez MD [Primary Care Provider] - 1-2 days Time of Disposition: 14:52
== END 2023-12-07 15:22 | disposition left against medical advice (07) ==
LOC: EC 12:50
DX: M25.551 Pain in right hip (principal); F17.200 Nicotine dependence, unspecified, uncomplicated; Z53.29 Procedure and treatment not carried out because of patient's decision for other reasons; Z86.73 Personal history of transient ischemic attack (TIA), and cerebral infarction without residual deficits; Z88.5 Allergy status to narcotic agent
CPT/HCPCS: 73502; 99284; 96372; J1170

== ENCOUNTER 2024-03-25 04:47 | Emergency (ER) | payer MEDICARE, OTHER ==
--- NOTE | 2024-03-25 04:54 | ED ---
Recheck HPI - General Stated Complaint: Pain control Time Seen by Provider: 03/25/24 04:48 Source: RN notes reviewed, old records reviewed Limitations: no limitations - History of Present Illness Initial Comments: This is a 63 female to the ER for evaluation of chronic pain. Right hip pain with history of chronic pain, patient recently had her pain medication her pain management doctor fired from her care of service and ran out of pain medication a day and a half ago MD Complaint: medication refill request -: days(s) Returns Today for: persistent/worsening pain related to initial visit Symptoms Since Prior Visit: worsening pain Associated Symptoms: none Treatments Prior to Arrival: Given Pain Meds on - Related Data Home Medications Medication Instructions Recorded Confirmed ALPRAZolam [Xanax] 2 mg PO TID PRN 12/20/19 11/14/22 Atorvastatin Calcium [Lipitor] 40 mg PO DAILY 11/27/21 11/14/22 Losartan [Cozaar] 25 mg PO DAILY 11/27/21 11/14/22 metFORMIN HCL [Glucophage] 500 mg PO DAILY 11/27/21 11/14/22 Allergies Allergy/AdvReac Type Severity Reaction Status Date / Time oxycodone Allergy Itching Verified 09/23/23 11:53 morphine AdvReac Hallucinati Verified 09/23/23 11:53 ons Review of Systems ROS Statement: Those systems with pertinent positive or pertinent negative responses have been documented in the HPI. ROS Other: All systems not noted in ROS Statement are negative. 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 Past Anesthesia/Blood Transfusion Reactions: No Reported Reaction Past Psychological History: Anxiety, PTSD Smoking Status: Current every day smoker Past Alcohol Use History: None Reported Past Drug Use History: Marijuana - Past Family History Mother Family Medical History: No Reported History Father Family Medical History: Hypertension Additional Family Medical History / Comment(s): Alcoholic. General Exam General appearance: alert, in no apparent distress Head exam: Present: atraumatic, normocephalic, normal inspection Eye exam: Present: normal appearance, PERRL, EOMI. Absent: scleral icterus, conjunctival injection, periorbital swelling ENT exam: Present: normal exam, mucous membranes moist Neck exam: Present: normal inspection. Absent: tenderness, meningismus, lymphadenopathy Respiratory exam: Present: normal lung sounds bilaterally. Absent: respiratory distress, wheezes, rales, rhonchi, stridor Cardiovascular Exam: Present: regular rate, normal rhythm, normal heart sounds. Absent: systolic murmur, diastolic murmur, rubs, gallop, clicks GI/Abdominal exam: Present: soft, normal bowel sounds. Absent: distended, tenderness, guarding, rebound, rigid Extremities exam: Present: normal inspection, full ROM, normal capillary refill. Absent: tenderness, pedal edema, joint swelling, calf tenderness Back exam: Present: normal inspection Neurological exam: Present: alert, oriented X3, CN II-XII intact Psychiatric exam: Present: normal affect, normal mood Skin exam: Present: warm, dry, intact, normal color. Absent: rash Course Vital Signs 03/25/24 04:49 Temperature 97.8 F Pulse Rate 83 Respiratory 17 Rate Blood Pressure 144/90 O2 Sat by Pulse 97 Oximetry - Reevaluation(s) Reevaluation #1: 03/25/24 04:54 Medical records reviewed Reevaluation #2: 03/25/24 04:54 Patient symptoms improved Reevaluation #3: 03/25/24 04:54 Patient informed of results and questions answered Reevaluation #4: Was pt. sent in by a medical professional or institution (, PA, NEGATIVE RETOUCHER, urgent care, hospital, or halfway...) When possible be specific @ -no Did you speak to anyone other than the patient for history (EMS, parent, family, police, friend...)? What history was obtained from this source @ -no Did you review nursing and triage notes (agree or disagree)? Why? @ -agree Are old charts reviewed (outside hosp., previous admission, EMS record, old EKG, old radiological studies, urgent care reports/EKG's, halfway records)? Report findings @ -yes Differential Diagnosis (chest pain, altered mental status, abdominal pain women, abdominal pain men, vaginal bleeding, weakness, fever, dyspnea, syncope, headache, dizziness, GI bleed, back pain, seizure, CVA, palpatations, mental health, musculoskeletal)? @ -prior EKG interpreted by me (3pts min.). @ -yes X-rays interpreted by me (1pt min.). @ -yes negative for acute disease CT interpreted by me (1pt min.). @ -no U/S interpreted by me (1pt. min.). @ -no What testing was considered but not performed or refused? (CT, X-rays, U/S, labs)? Why? @ -none What meds were considered but not given or refused? Why? @ -none Did you discuss the management of the patient with other professionals (professionals i.e. , PA, NEGATIVE RETOUCHER, lab, RT, psych nurse, social staff worker, art psychotherapist, teacher, donor relations officer, nurse case manager)? Give summary @ -no Was smoking cessation discussed for >3mins.? @ -no Was critical care preformed (if so, how long)? @ -no Were there social determinants of health that impacted care today? How? ( Homelessness, low income, unemployed, alcoholism, drug addiction, transportation, low edu. Level, literacy, decrease access to med. care, halfway, rehab)? @ -none Was there de-escalation of care discussed even if they declined (Discuss DNR or withdrawal of care, Hospice)? DNR status @ -no What co-morbidities impacted this encounter? (DM, HTN, Smoking, COPD, CAD, Cancer, CVA, ARF, Chemo, Hep., AIDS, mental health diagnosis, sleep apnea, morbid obesity)? @ -none Was patient admitted / discharged? Hospital course, mention meds given and route, prescriptions, significant lab abnormalities, going to OR and other pertinent info. @ - Undiagnosed new problem with uncertain prognosis? @ -no Drug Therapy requiring intensive monitoring for toxicity (Heparin, Nitro, Insulin, Cardizem)? @ -no Were any procedures done? @ -no Diagnosis/symptom? @ - Acute, or Chronic, or Acute on Chronic? @ -Acute Uncomplicated (without systemic symptoms) or Complicated (systemic symptoms)? @ -Complicated Side effects of treatment? @ -no Exacerbation, Progression, or Severe Exacerbation? @ -exacerbation Poses a threat to life or bodily function? How? (Chest pain, [place], [place], pneumonia, PE, COPD, DKA, ARF, appy, cholecystitis, CVA, Diverticulitis, Homicidal, Suicidal, threat to staff... and all critical care pts) @ -yes Medical Decision Making - Medical Decision Making 63 female with chronic pain. Pain is well-controlled here in the ER patient can be discharged home Disposition Clinical Impression: Chronic pain, Medicine refill Disposition: HOME SELF-CARE Condition: Good Instructions (If sedation given, give patient instructions): Medicine Refill (ED) Is patient prescribed a controlled substance at d/c from ED?: No Referrals: None,Stated [Primary Care Provider] - 1-2 days Time of Disposition: 05:30
[2024-03-25 04:56] VITALS: RESP 17; TEMP 97.8
[2024-03-25] MEDS: HYDROmorphone 1 MG/ML 1 ML SYRINGE IM STA (05:00)
[2024-03-25] MEDS: LORazepam 1 MG TAB PO STA (05:07)
[2024-03-25 05:14] VITALS: BP 142/84; PULSE 82
== END 2024-03-25 05:13 | disposition home or self-care (01) ==
LOC: EC 04:47
DX: Z76.0 Encounter for issue of repeat prescription (principal); G89.29 Other chronic pain; Z86.73 Personal history of transient ischemic attack (TIA), and cerebral infarction without residual deficits; F17.200 Nicotine dependence, unspecified, uncomplicated; Z88.5 Allergy status to narcotic agent; Z88.8 Allergy status to other drugs, medicaments and biological substances
CPT/HCPCS: 99284; 96372; J1171